=== PATIENT | male | born 1940 | race American Indian/Alaskan Native ===

== ENCOUNTER 2024-11-24 06:03 | Inpatient (IN) | payer OTHER, SELFPAY ==
[2024-11-24] VITALS (25 sets, daily range): BP systolic 98–176; BP diastolic 68–143; PULSE 85; O2SAT 92; BMI 27.0
[2024-11-24 04:04] LABS: % Basophils 0.3 % (0-2); % Eosinophils 1.3 % (0-6); % Immature Granulocytes 0.3 % (0-0.5); % Monocytes 7.7 % (1.7-9.3); % Neutrophils 68.4 % (42.2-75.2); Absolute Lymphocytes 0.7 10^3/uL (1.2-3.4); Absolute Monocytes 0.2 10^3/uL (0.1-0.6); Absolute Neutrophils 2.1 10^3/uL (1.4-6.5); Hematocrit 30.5 % (39.0-52.0); Hemoglobin 8.9 g/dL (13.0-18.0); Mean Corp Hgb Conc. 29.2 g/dL (33.0-37.0); Mean Corpuscular Hgb 25.5 pg (27.0-31.0); Mean Corpuscular Volume 87.4 fL (80.0-94.0); Mean Platelet Volume 9.7 fL (7.4-10.4); Nucleated Red Blood Cells % 0 % (-); Platelet Count 171 10^3/uL (130-400); Red Blood Cell Count 3.49 10^6/uL (4.70-6.10); Red Cell Dist. Width 19.7 % (11.5-14.5); White Blood Cell Count 3.1 10^3/uL (4.8-10.8)
[2024-11-24 04:15] LABS: COVID-19 Antigen Positive (Negative)
[2024-11-24 04:17] LABS: ALT (SGPT) 42 U/L (0-50); AST (SGOT) 29 U/L (17-59); Albumin 3.3 g/dl (3.5-5.0); Alkaline Phosphatase 293 U/L (38-126); Blood Urea Nitrogen 24 mg/dl (9-20); Calcium 8.1 mg/dl (8.4-10.2); Carbon Dioxide 22 mmol/L (22-30); Chloride 108 mmol/L (98-107); Estimated Creatinine Clearance 42 ml/min; Glucose 148 mg/dl (70-99); Potassium 3.9 mmol/L (3.5-5.1); Sodium 142 mmol/L (135-145); Total Bilirubin 0.6 mg/dl (0.2-1.3); Total Protein 6.2 g/dl (6.3-8.2); eGFR 54.51
[2024-11-24 04:29] LABS: NT-proBNP 7590 pg/ml; Troponin I < 0.012 ng/ml
[2024-11-24] MEDS: NSS 1000 IV (04:30)
--- NOTE | 2024-11-24 04:30 | ED.GENMED ---
History of Present Illness
General
Chief Complaint: Breathing Problem
Source: patient, family and ambulance crew
Exam Limitations: none
Time Seen by Provider: 11/24/24 04:18
Nursing documentation reviewed up to this point in time: agreed with
History of Present Illness
History of Present Illness:
This is an 84-year-old gentleman who has remote history of prostate cancer, more recently diagnosed with bladder cancer and completed chemotherapy as well as XRT September of this year. Was recently hospitalized at [facility] due to frequent falls,
acute influenza, acute on chronic kidney disease, acute on chronic anemia requiring blood transfusion. Was discharged to a correction for physical therapy with plan for discharge to home tomorrow. He began with very mild cough on Thursday, 3 days
ago, cough is worsened and developed shortness of breath and hypoxia this evening prompting call to 911. Upon EMS arrival patient noted to be in A-fib with rapid ventricular response. Was given an IV bolus of Cardizem 15 mg prehospital.
Upon arrival to the ED, family has arrived with further history obtained. Patient has chronic atrial fibrillation.
No recent falls, has been doing well with PT.
Generally does not require supplemental oxygen.
Past History
Past History
ED Past Medical History: Arrthythmia (Chronic atrial fibrillation), CAD, Cancer (Prostate cancer, bladder cancer), CVA (History of a TIA), GERD, Hypercholesterolemia, Renal failure ( chronic renal insufficiency) and Other (Influenza October 2024);
Negative Asthma or COPD
ED Past Surgical History: Urological
Social History
Tobacco: Non-smoker
Alcohol: None
Living: correction (Currently residing in a correction for inpatient physical therapy)
Employment: Retired
Family History
Family History: Other (Noncontributory)
Phy Exam
Physical Exam
Physical Exam:
GENERAL: 84-year-old gentleman appears his stated age, awake and alert, exhibits frequent harsh nonproductive cough, mild tachypnea but otherwise bright and alert, in no acute distress. Room air pulse ox in the 80s, currently comfortable on 6 L
nasal cannula oxygen
EYE: pupils equal and reactive. anicteric
NECK: Supple, nontender, no meningismus, no significant adenopathy.
ENT: posterior pharynx is clear, oral mucosa is minimally dry. Mild clear rhinorrhea.
CARDIAC: Irregularly irregular, tachycardic.
LUNGS: Frequent hacking nonproductive cough, fine bibasilar rales, mild resting tachypnea.
ABDOMEN: Soft, nondistended, without focal tenderness, normoactive BS.
NEUROLOGICAL: Alert and oriented x3, no focal neuro deficits.
SKIN: Mildly hot to touch and dry, normal color, skin intact. No rash.
MUSCULOSKELETAL: No C/C/E. peripheral pulses are full and equal b/l. No palpable tenderness.
PSYCH: Normal and appropriate interaction.
Scores
Heart Failure Risk
Heart Failure Risk Score: Not Applicable
Course
Orders/Labs/Results
Orders:
Orders
11/24/24 03:39
Electrocardiogram (*1) Urgent
Reason for Study: Other
Other Reason for Exam: Respiratory Distress
Cardiac Monitoring- Treatment ONCE
EKG- Treatment ONCE
IV Insert/Care/Rem.- Treatment PRN
11/24/24 03:54
COVID-19 Antigen Urgent
Source: Nasal Swab
Complete Blood Count/With Diff Urgent
Comprehensive Metabolic Panel Urgent
NT-proBNP Urgent
Troponin I Urgent
Influenza A+B Rapid Molecular Urgent
NINO Source: Nasal Swab
Specimen Description:
11/24/24 04:26
0.9% Sodium Chloride 1000 ml [Nss] 1,000 ml IV BOLUS
CR Chest Portable - 1 View Urgent
Comment:
Reason For Exam: cough, covid (+)
Reason Study Needs to be Portable: Unable to Transport
11/24/24 04:40
Ipratropium/Albuterol Sulfate [Duoneb] 3 ml INH R NOW STA
11/24/24 05:03
Type+Screen Urgent
11/24/24 05:30
Admit/Transfer Patient As Directed
Co-Sign Provider:
Level of Care: Inpatient admission
Assign to:: IMU- Intermediate Care
Physician / Group: hospitalist
Diagnosis: afib RVR, covid 19
Reason for Hospitalization: hypoxia
Expected length of stay greater than two midnights?: Yes
ELOS- Estimated Length of Stay in days: 2
I certify the patient meets the requirements for IP care: Yes
11/24/24 05:31
Code Status As Directed
Resuscitation Status: Do not resuscitate
Reached after discussion with pt or family/Healthcare POA: Yes
PRN Pain Medication Management As Directed
May give lesser potent ordered pain med per pt: Yes
preference::
Protocol:: Medication orders for pain may be administered in a
manner that supports deferring to patient preference
when the pt is:
- Requesting an ordered lesser potent pain medication.
Least to most potent pain medications are defined
as: acetaminophen < NSAID < tramadol < opioids
(morphine, oxycodone, hydromorphone).
- Requesting a lesser dose of the same medication IF
ORDERED.
- Requesting a less intrusive route of administration
if both routes are prescribed by the provider (PO <
IV).
11/24/24 05:32
DNR Bracelet Application ONCE
11/24/24 05:42
Dexamethasone Sod Phosphate [Decadron] 6 mg IV NOW STA
Metoprolol [Lopressor] 5 mg IV NOW STA
11/24/24 05:47
ABO2 Urgent
BBK Wristband Number:
Associate notified that ABO2 has been ordered: SULY
Date: 11/24/24
Time: 05:20
Gang Leader ID: [id number]
11/24/24 Breakfast
Sodium, 4 Gram (JACKY)
11/24/24 06:32
Acetaminophen [Tylenol] 650 mg PO Q4HPRN PRN
Albuterol [ProAIR HFA INHALER] 2 puff INH R Q4HPRN PRN
Bisacodyl [Dulcolax] 10 mg RECTAL [id number] PRN
Diltiazem 125 mg/125 ml Nss [Cardizem] 125 mg in 125 ml IV PER PROTOCOL
Currently infusing. Continue current dose and titrate:: Yes
Titrate to keep:: Heart rate 80-100 bpm
Titrate by mg/hr:: 5 mg/hr
Frequency of titrations (minutes):: 15
Maximum dose in mg/hr:: 15
Docusate W/Senna [Senokot-S] 1 tablet PO DAILYPRN PRN
Guaifenesin/Codeine Solution [Robitussin AC] 10 ml PO Q6HPRN PRN
Magnesium Hydroxide [Milk of Magnesia] 30 ml PO HSPRN PRN
Ondansetron Injectable [Zofran] 4 mg IV Q6HPRN PRN
Remdesivir [Veklury] 200 mg 0.9% Sodium Chloride 250 ml [Nss] 210 ml IV ONCE
Patient has been symptomatic for </= 10 days?: Yes
Patient's SpO2 </= 94% on room air OR requiring oxygen?: Yes
11/24/24 06:32
CARDIOLOGY CONSULT Routine
Consulting Provider: Devon Asencio
Was physician already notified: No
Reason for consult: afib rvr
Consult Notification Routine
Specialty to Notify: Cardiology
Date consulting provider notified: 11/24/24
Time consulting provider notified: 07:08
Notified:: Provider
VTE Contraindication Routine
VTE Mechanical Device Contraindication: Medical Contraindication
Pharmocologic Contraindication: Medical Contraindication
Activity As Directed
Activity Level: Out of Bed-Early Mobility
Intake/ Output As Directed
Frequency: Per unit guidelines
Medical Records Request [Obtain Records] As Directed
Dates of Information to be Released: Sep 21 2024 - november 23 2024
Type of Information Requested: Entire Record
Precautions As Directed
Type of Precautions: Novel Respiratory
Vital Signs As Directed
Frequency: Per unit guidelines
Weight As Directed
Frequency: Once
Comment: on admission
O2 Therapy [RESP] Routine
Nasal Cannula Liter Flow: 4 LPM
Titrate/Wean O2 to maintain O2 sat greater than (%): 93
Special Instructions: nasal cannula oxygen to maintain O2 saturation as noted above. then wean as tolerated.
Do NOT humidify nasal cannula O2
Pulse Ox/cont/shift [RESP] Routine
Quantity: 1
Special Instructions: continuous pulse oximetry
11/24/24 08:00
Dexamethasone Sod Phosphate [Decadron] 6 mg IV DAILY
Diltiazem Extended Release [Cardizem Cd] 240 mg PO DAILY
Metoprolol [Lopressor] 150 mg PO BID
Pantoprazole [Protonix] 40 mg PO BID
Tamsulosin [Flomax] 0.4 mg PO DAILY
11/24/24 18:00
Atorvastatin [Lipitor] 40 mg PO QPM
11/25/24 06:00
Basic Metabolic Panel IN AM
Uoiyv-Witm-Hywbvrx IN AM
Magnesium IN AM
Procalcitonin IN AM
PCT Algorithmm Indication: Respiratory
Prothrombin Time IN AM
11/25/24 12:00
Remdesivir [Veklury] 100 mg 0.9% Sodium Chloride 250 ml [Nss] 230 ml IV DAILY@1200
Abnormal Lab Results
11/24/24
03:54
WBC 3.1 L 10^3/uL
(4.8-10.8)
RBC 3.49 L 10^6/uL
(4.70-6.10)
Hgb 8.9 L g/dL
(13.0-18.0)
Hct 30.5 L %
(39.0-52.0)
MCH 25.5 L pg
(27.0-31.0)
MCHC 29.2 L g/dL
(33.0-37.0)
RDW 19.7 H %
(11.5-14.5)
Absolute Lymphs (auto) 0.7 L 10^3/uL
(1.2-3.4)
Chloride 108 H mmol/L
(98-107)
BUN 24 H mg/dl
(9-20)
Glucose 148 H mg/dl
(70-99)
Calcium 8.1 L mg/dl
(8.4-10.2)
Alkaline Phosphatase 293 H U/L
(38-126)
Total Protein 6.2 L g/dl
(6.3-8.2)
Albumin 3.3 L g/dl
(3.5-5.0)
SARS-CoV-2 Antigen Positive A
(Negative)
11/24/24 03:54
11/24/24 03:54
Vital Signs
Initial and Last Documented VS:
Initial Vital Signs
Temp Pulse Resp BP Pulse Ox
98.5 F 140 25 137/80 92
11/24/24 03:34 11/24/24 03:34 11/24/24 03:34 11/24/24 03:34 11/24/24 03:34
Last Documented Vital Signs
Temp Pulse Resp BP Pulse Ox
98.3 F 135 20 145/90 98
11/24/24 06:36 11/24/24 05:56 11/24/24 05:45 11/24/24 05:56 11/24/24 06:36
MDM/Problems Addressed
Differential Diagnosis Includes:
Concern for acute URI, pneumonia, COVID, CHF, concern for acute on chronic A-fib versus paroxysmal A-fib. According to family, patient has chronic atrial fibrillation.
Labs are pending.
COVID-19 is positive.
Will check portable chest x-ray.
Continue supplemental oxygen.
Will trial DuoNeb nebulizer.
With history of cancer, recent completion of XRT and chemotherapy, patient is considered immunocompromised.
Due to acute hypoxic respiratory failure requiring supplemental oxygen will require acute hospitalization.
Will plan to initiate Paxlovid
Chronic conditions affecting care: CAD, Arrhythmia, Immunosuppressed and Kidney disease
*Radiology
Radiology exam reviewed: preliminary read by ED provider (Chest x-ray shows right lower lobe infiltrate with right pleural effusion. No old films to compare.)
*Pulse Oximetry
Patient hypoxic: yes
*EKG
Interpreted by ED Provider?: Yes
Interpretation: abnormal
Comparison EKG: no comparison EKG present
Rate: tachycardiac
Rhythm: a-fib
[place]: normal axis
QRS Pattern: right bundle branch block
Ischemia: non-specific ST changes
*Gas Derrick Operator Interpretation
Rate: tachycardiac
Interpretation: abnormal
Rhythm: a-fib
*Critical Care Note
Total Time (30-74mins, 75-104mins- exclusive of procedures): Not Applicable
ED Attending Note
-
Portions of this chart may have been created with voice recognition software.� Occasional wrong word or��sound alike� substitutions may have occurred due to the inherent limitations of voice recognition software.
Discharge Plan
Departure
Patient Disposition: Admit
Date of Disposition: 11/24/24
Time of Disposition: 04:51
Admit to: Telemetry
Admit to doctor: Asim
Presentation/result/management discussed w/ accepting MD/DO: Hospitalist
Condition: Fair
Discharge Problem:
COVID-19, Acute hypoxemic respiratory failure, Chronic atrial fibrillation with rapid ventricular response, HCAP (healthcare-associated pneumonia)
Interventions
Interventions:
*Risk Screen - Suicide Last Done: 11/24/24 03:34
*General Assessment Last Done: 11/24/24 03:34
*Neglect/Abuse Screening Last Done: 11/24/24 03:34
*ED- Fall Risk Assessment Last Done: 11/24/24 03:57
*ED COVID-19 Vaccine History Last Done: 11/24/24 03:57
*Nursing Disposition Last Done: 11/24/24 06:42
ED- Cardiac Assessment Last Done: 11/24/24 04:02
ED- Pulmonary Assessment Last Done: 11/24/24 04:03
Discharge Date and Time
Discharge Date/Time: 11/24/24 06:43
[2024-11-24] MEDS: DUONEB 3 ML INH (04:58)
--- NOTE | 2024-11-24 05:15 | HPS.HSE ---
Family Physician
-
Family Physician: NOT KNOW UNKNOWN - PT DOES
Chief Complaint
-
Shortness of breath
History of Present Illness
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
bladder cancer status post chemotherapy as well as XRT and general of dysuria who was recently hospitalized at [facility] for approximately 3 weeks subsequent to a fall where he was found to have acute influenza with acute on chronic CKD, anemia
requiring blood transfusion and uncontrolled atrial fibrillation who now presents to the emergency department with shortness of breath.
Patient was discharged to rehab from [facility]. According to patient and family was well up until Thursday when he started having cough that is unproductive. Cough is worsened over the last few days and he developed shortness of breath and
hypoxia. Patient reports chronic pedal edema which is not significantly changed. He denies orthopnea or PND. Denied having any fevers or chills. Was found to be hypoxic and thus was brought to the emergency department. EMS found the patient to
be in atrial fibrillation with RVR and was giving 50 mg bolus of Cardizem prior to arrival in the ED
On arrival in the emergency department his oxygen level was 97% on 4 L, blood pressure was 157/80 with a pulse of 133. ECG shows a atrial fibrillation with RVR without any acute ST or T wave changes. Troponin was negative. BNP was elevated at
7500. CBC notable for hemoglobin of 8.9 but otherwise unremarkable. Electrolytes were stable with a sodium of 149 only. His creatinine was 1.3 unknown baseline. Glucose was normal at 148. Chest x-ray shows right-sided pleural effusion with some
rounded atelectasis. No clear evidence of any consolidation. COVID test was positive. Influenza test was negative.
Medical History
Past Medical History
Past Medical History: Reports Arrhythmia (Permanent atrial fibrillation on anticoagulation with Eliquis), CAD, Cancer (Prostate cancer, bladder cancer), CVA (TIA), GERD, Hypercholesterolemia and Renal Failure (CKD)
Past Surgical History: Reports Urological
Social History
Tobacco: Non-smoker
Alcohol: None
Personal: Single
Living: Group Home (Recently from rehab was living at home)
Employment: Retired
Family History
Family History: Not pertinent
Allergies / Home Medications
Allergies reflects when Allergies were last updated in [facility].
Home Medications with original date entered in [facility]
Allergy/Medication List:
Allergies
Allergy/AdvReac Type Severity Reaction Status Date / Time
No Known Allergies Allergy Unverified 11/24/24 04:25
Metoprolol 150 mg tablet, 150 mg p.o. every 12
Tamsulosin 0.4 mg tablet, 0.4 mg p.o daily.
Atorvastatin 40 mg tablet, 40 mg p.o. at bedtime
Apixaban 5 mg tablet, 5 mg p.o. every 12
Cardizem extended release 24-hour to 40 mg tablet, 240 mg p.o. daily
Pantoprazole 40 mg tablet, 40 mg p.o. every 12
Review of Systems
-
History Source: Patient and Family
Constitutional: Reports No Symptoms
EENT: Reports No Symptoms
Respiratory: Reports Cough and Trouble Breathing
Cardiac: Denies Chest Pain, Diaphoresis or Palpitations
Abdomen/GI: Reports No Symptoms
: Reports No Symptoms
Musculoskeletal: Reports No Symptoms
Skin: Reports No Symptoms
Neurological: Reports No Symptoms
Endocrine: Reports No Symptoms
Hematologic/Lymphatic: Reports No Symptoms
Psych: Reports No Symptoms
Physical Exam
Vital Signs
Vital Signs
Temp Pulse Resp BP Pulse Ox
98.7 F 133 19 137/80 97
11/24/24 04:01 11/24/24 03:45 11/24/24 03:45 11/24/24 03:38 11/24/24 04:03
Physical Exam
General: Well Developed, Well Nourished, No Apparent Distress and Comfortable
HEENT: NormoCephalic, Anicteric, Moist mucous membranes and Atraumatic
Respiratory: Rales and Rhonchi
Cardiac: S1/S2, Irregular Rhythm and Tachycardia
Breast: Deferred by me
GI: Soft, Non Tender, Non Distended and Normal Bowel Sounds
Rectal: Deferred by Provider
Genito-urinary: Deferred by me
Musculoskeletal: No Clubbing, No Cyanosis, Edema, Left Lower Extremity (1+ pedal) and Edema, Right Lower Extremity (1+ pedal)
Skin: Warm
Neuro: AO x 3 and Nonfocal/grossly intact
Hematologic/Lymphatic: No Lymphadenopathy
Psych: Calm
Laboratory Results
-
11/24/24 03:54
11/24/24 03:54
Laboratory Results
Total Bilirubin 0.6 mg/dl (0.2-1.3) 11/24/24 03:54
AST 29 U/L (17-59) 11/24/24 03:54
ALT 42 U/L (0-50) 11/24/24 03:54
Alkaline Phosphatase 293 U/L (38-126) H 11/24/24 03:54
Troponin I < 0.012 ng/ml 11/24/24 03:54
Data Reviewed
-
Diagnostic Radiology: Image Personally Visualized and interpreted
Medical Tests (Nuc Med, Echo, EKG etc): Image Personally Visualized and interpreted
Lab Data: Labs Reviewed by me
Old Records: Reviewed
Impression/Plan
-
IMPRESSION:
84-year-old with history of bladder cancer status post chemo and XRT, chronic atrial fibrillation, recent admission for influenza complicated by uncontrolled atrial fibrillation, ROMA on CKD, recent history of anemia requiring blood transfusion but
no known report of bleeding, presenting with hypoxic respiratory failure after 3 days of cough and found to have COVID-19. Influenza is negative. Had influenza in September and was hospitalized at [facility] for 3 weeks stated above. He is
hemodynamically stable and afebrile. He is in rapid atrial fibrillation. Exam shows pedal edema with elevated BNP and negative troponin. Chest x-ray with the right-sided pleural effusion and rounded atelectasis on the right.
PLAN:
COVID-19 infection - No signs of bacterial superinfection at this time.
- admit to IMU
- Remdesivir
- dexamethasone 6mg iv daily
- supportive measures with antitussives and nebs
- supplemental oxgyen for now
- check procal
Rapid atrial fibrillation - Suspect secondary to acute viral infection. HD stable.
- oxygen and treatments as above
- s/p dilt bolus by EMS, will give metoprolol based on patient meds, if not controlled, will start cardizem for rate control
- continue high dose metoprolol 150 q 12
- AC with apixaban
- cardiology consult
Congestive heart failure - Slightly volume overloaded with pedal edema
- daily weights and i/os
- unclear if diuresis at [place]
- monitor for now
- cardiology consult
Anemia - Normocytic anemia. Suspect ACD. No signs of acute bleed. Recent transfusion
- type and screen
- transfuse for Hgb < 7
BPH -
- cont. tamsulosin
DVT PPX - on apixaban
Code status - DNR
[2024-11-24] MEDS: DECADRON 6 MG IV ×2 (05:56→08:17)
[2024-11-24] MEDS: LOPRESSOR 5 MG IV (05:56)
[2024-11-24] MEDS: LASIX 40 MG IV (08:16)
[2024-11-24] MEDS: ROCEPHIN 1000 MG IV (08:17)
[2024-11-24] MEDS: VITAMIN E 200 UNITS PO (08:18)
[2024-11-24] MEDS: CARDIZEM CD 240 MG PO (08:18)
[2024-11-24] MEDS: FLOMAX 0.4 MG PO (08:18)
[2024-11-24] MEDS: PROTONIX 40 MG PO ×2 (08:18→20:39)
[2024-11-24] MEDS: ZINC 50 MG PO (08:18)
[2024-11-24] MEDS: LOPRESSOR 150 MG PO ×2 (08:18→20:35)
[2024-11-24] MEDS: STERILE WATER FOR INJECTION 10 ML IV (08:18)
[2024-11-24] MEDS: VEKLURY 250 MG IV (08:19)
[2024-11-24] MEDS: CARDIZEM 125 IV (08:20)
[2024-11-24] MEDS: VIBRAMYCIN 260 MG IV (08:21)
--- NOTE | 2024-11-24 08:57 | CON.CAR ---
Addendum entered and electronically signed by Rolando Chandra MD 11/24/24 11:10:
Patient evaluated in collaboration with BUSINESS ADVISOR; agree with below.
-84-year-old male (primarily followed by an outside Training Program Assistant) with atrial fibrillation (type unspecified; on Eliquis), CAD (specifics unknown), CHF (type unspecified), hypertension, dyslipidemia, CKD, and anemia admitted with COVID-19 pneumonia.
-Patient also has atrial fibrillation with RVR to 150s; started on a Cardizem drip with minimal improvement in heart rates.
-Given acuity of situation, will change from Cardizem drip to amiodarone drip to try to more aggressively control heart rate.
-Patient not on Lasix as outpatient; cardiac BNP 7590.
-Continue Lasix 40 mg IV daily.
-Continue current oral doses of metoprolol tartrate and Cardizem CD.
-Continue Eliquis.
-Continue cardiac monitor technician.
-Try to obtain medical records from [place] and primary Training Program Assistant.
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
-Continue supportive care; management as per primary team.
Original Note:
Consultation
Consultation Request
Date/Time Consultation Requested: 11/24/24 0632
Date/Time Consultation Performed: 11/24/24 0855
Requesting Provider: Dr. Dailey
Performing Provider: Althea GALVAN for Dr. Chandra
Reason for Consultation: AFIB with RVR
Medical History
-
Chief Complaint: cough, SOB, hypoxia
History of Present Illness:
84 y/o male with atrial fibrillation, hypertension, dyslipidemia, CHF, CVA, CKD, prostate cancer, CHF and CAD per chart?, and bladder cancer with chemo and radiation. Per chart, he was recently hospitalized at [place] with flu and ROMA on CKD,
anemia requiring transfusion, and AFIB with RVR. He is here with cough, hypoxia, and SOB. He has COVID-19. I tried to use the experimental machinist IPAD for effective communication ([place] Citizen-speaking). However, he was coughing too much to effectively
communicate. He told me his would know more about his cardiac history- I called her and she reports that he follows with a Dr. Laboy who he saw last week - records requested- and that he has known afib and trouble with fast rates.
Past Medical History
Past Medical History: Arrhythmias, CAD (?), Cancer, CHF, CVA, HTN, Hypercholesterolemia and Other (as above)
Social History
Personal:
Living: With Family
Family History
Family History: Reviewed & Not Pertinent
Allergies / Home Medications
Allergy/AdvReac Type Severity Reaction Status Date / Time
No Known Allergies Allergy Unverified 11/24/24 04:25
�Medication �Instructions �Recorded �Confirmed �Type
apixaban 5 mg tablet (Eliquis) 5 mg PO BID 11/24/24 History
atorvastatin 40 mg tablet 40 mg PO DAILY 11/24/24 History
diltiazem HCl 240 mg 240 mg PO DAILY 11/24/24 History
capsule,extended release 24 hr
fluticasone propionate 50 2 spray intranasal DAILY 11/24/24 History
mcg/actuation nasal
spray,suspension
ipratropium 0.5 mg-albuterol 3 mg ml inhalation 11/24/24 11/24/24 History
(2.5 mg base)/3 mL nebulization
soln
metoprolol tartrate 50 mg tablet 150 mg PO BID 11/24/24 History
pantoprazole 40 mg tablet,delayed 40 mg PO BID 11/24/24 History
release
tamsulosin 0.4 mg capsule 0.4 mg PO DAILY 11/24/24 11/24/24 History
Review of Systems
-
History Source: Patient and Other (and chart)
Respiratory: Cough and Trouble Breathing
Physical Exam
Vital Signs
Temp Pulse Resp BP Pulse Ox
97.6 F 134 20 137/103 98
11/24/24 07:54 11/24/24 08:18 11/24/24 05:45 11/24/24 08:18 11/24/24 06:36
Lab Results
11/24/24 03:54
11/24/24 03:54
Troponin I < 0.012 ng/ml 11/24/24 03:54
Aun-Z-Pencwazidnn Pept 7590 pg/ml 11/24/24 03:54
Physical Exam
General: Well Developed, Well Nourished and Other (frequent coughing)
Respiratory: Rhonchi and Other (on O2 by NC)
Cardiac: Irregular Rhythm and Peripheral Edema
Musculoskeletal: Edema (mild BLE edema)
Skin: Warm and Dry
Neuro: Awake and Alert
Psych: Calm
Impression / Plan
-
Covid-19:
-cough, hypoxia, evidence for possible PNA on CXR. On O2 by OR.
-management per primary team
AFIB with RVR:
-rates fast, which apparently has been issue per . This is in setting of acute illness.
-he is on diltiazem 240 mg daily as OP, as well as metoprolol 150 mg PO BID
-agree with IV diltiazem, which requires intensive monitoring
-continue Eliquis 5 mg PO BID (not ordered yet- I ordered)
-no echo right now with fast rates and frequent coughing, as noted records requested
CHF, [id number]- type unknown:
-per chart, patient with hx of this, though not on OP diuretic
-records requested
-he has BLE edema, which per chart is chronic
-BNP 7590
-monitor response to IV lasix, which is ordered by primary team
-echo as above
Anemia:
-baseline unknown
-monitor
CAD per chart:
-details unknown
-no CP, trop fine
-on Eliquis/statin
HTN:
-elevated
-monitor on dilt drip, which is being increased
Data Reviewed
-
EKG: Tracing Personally Visualized and interpreted (AFIB with RVR RBBB, with PVC's or aberrant complexes)
Radiology: Report Reviewed by me (CXR: Right basilar opacity which could represent atelectasis and/or pneumonia and tiny right pleural effusion.)
Labs: Labs Reviewed by me
[2024-11-24 09:13] LABS: Erythrocyte Sed Rate 25 mm/hour (0-20)
[2024-11-24 09:20] LABS: Procalcitonin < 0.05 ng/ml (0.0-0.25)
--- NOTE | 2024-11-24 09:24 | W.PN.HOSP.TC ---
Today's Communication/Plan
-
see PN
Assessment / Plan
Assessment / Plan
84yo M with PMHC of Afib, HTN, HLD, BPH, GERD, CAD, Hx of CVA, prostate CA undergoing RT came with cough, hypoxia from rehab, found COVID-19 pneumonia complicated by Afib with RVR
A/P:
#COVID-19 pneumonia with acute hypoxic respiratory failure
#Leukopenia 2/2 viral disease
#R basilar opacity, concern for pneumonia
ESR elevated, follow ferritin and procalcitonin
Remdesivir and follow LFT
Decadron and wean off O2
Zinc and vit E supplements
Ceftriaxone/Doxy
#Afib, unspecified with RVR
#CAD stable
Cardizem drip and cont home rate control
telemetry
Eliquis to cont
#B/L LE edema
US to r/o DVT
#CHF, unspecified
Lasix, follow weight, Cr and electrolytes
Cardiology consult: defer Echo to them as discussed
#Anemia most liekly 2/2 prostate CA
anemia w/u
check FOBT
follow CBC
#Elevated alk.phos 2/2 prostate CA
no RUQ pain
follow LFT
#Essential HTN
#CAD, stable
#GERD
#HLD
cont home meds
DVt ppx Eliquis
DNR/DNI
I have spent at least 56min reviewing chart, test results, communicating with consultants and providing direct patient care
Anticipated Discharge: > 48 hours
Subjective/Interval History
-
Date of Service: November 24, 2024
Objective Data
-
Labs:
Laboratory Results
11/24/24
03:54
WBC 3.1 L
Hgb 8.9 L
Hct 30.5 L
Plt Count 171
Sodium 142
Potassium 3.9
Chloride 108 H
Carbon Dioxide 22
BUN 24 H
Creatinine 1.3
Glucose 148 H
Calcium 8.1 L
Total Bilirubin 0.6
AST 29
ALT 42
Alkaline Phosphatase 293 H
Vital Signs:
Vital Signs
Temp Pulse Resp BP Pulse Ox
97.6 F 134 20 137/103 98
11/24/24 07:54 11/24/24 08:18 11/24/24 05:45 11/24/24 08:18 11/24/24 06:36
I&O
11/23/24 11/24/24 11/25/24
06:59 06:59 06:59
Intake Total 1000 / 1000
Output Total 100 / 100
Balance 900 / 900
Review of Systems
-
History Source: Patient
All other systems: Reviewed and negative
Physical Exam
-
General: No Apparent Distress and Comfortable
HEENT: Normocephalic
Respiratory: Clear to Auscultation
Cardiac: Regular Rhythm
GI: Soft, Nontender and Nondistended
Musculoskeletal: No Clubbing, No Cyanosis, Edema, Right Lower Extrem and Edema, Left Lower Extrem
Skin: Warm
Neuro: Awake, Alert, Oriented and AO x 3
[2024-11-24 09:40] LABS: Ferritin 89.9 ng/ml (17.9-464.0)
[2024-11-24] MEDS: ELIQUIS 5 MG PO ×2 (09:43→20:40)
[2024-11-24] MEDS: ROBITUSSIN AC 10 ML PO ×2 (09:43→17:56)
--- NOTE | 2024-11-24 10:00 | PTCARENOTE ---
Assumed care of patient at 0645. Assessment completed and documented in shift assessment.
Patient is AAOx2-3, Tongan speaking with broken danish. MALU, assists with turns. Currently on 4L NC, SpO2 mid 90's. A-Fib with RVR on monitor. Started IV Cardizem drip per order. Labs drawn, PO medications given.
[2024-11-24] MEDS: CORDARONE 103 MG IV (11:36)
[2024-11-24] MEDS: CORDARONE 518 MG IV (11:58)
--- NOTE | 2024-11-24 12:00 | PTCARENOTE ---
IV Cardizem drip d/c per order. Administered Amio bolus and then started Amio gtt per order.
[2024-11-24] MEDS: LIDOCAINE 4% PATCH 1 PATCH TOPICAL (13:37)
--- NOTE | 2024-11-24 14:26 | CM ---
Addendum entered by Anais Gongora RN 11/24/24 14:47:
Plan watch for any home O2 needs.
Plan follow up after seen by PT/OT.
Original Note:
Vietnamese/Mohawk speaking patient from [facility] with Dx COVID-19 pneumonia, Afib. O2 4L. Receiving Amiodarone gtt, IV Abx, IV Decadron, IV Lasix, IV Remdesivir, transitioned from IV to oral Cardizem today.
Spoke with Tayla Lovett & TRAC[facility]val[facility];
the patient was there for short term rehab and was not on a bed hold.
He was A/O, Vietnamese/Mohawk speaking.
Th patient required assist of 1, was ambulatory with a RW.
He was just completing rehab with plan for him to return home, when he needed to be sent to .
Spoke with patient's Shanti;
the patient resides with his in a 1 story house with options of 3 VIC or no steps at back door.
He was alert/oriented at home, independent in ADLs and ambulation using his SPC ( says she is aware he is now using his RW).
Home Address: [address] [place] [id number].
DME - RW, SPC, just ordered hospital bed
No prior VN.
Only SNF stay was at [facility].
PCP - Mikel Camejo
Pharmacy - [facility]
Message to Dr Jaeger requesting PT/OT Sanna to confirm if any rehab needs.
thinks patient will not need to return to SNF for rehab and will be able to return home.
Plan follow up after seen by PT/OT.
[2024-11-24] MEDS: LIPITOR 40 MG PO (17:56)
[2024-11-24] MEDS: VIBRAMYCIN 100 MG PO (20:40)
[2024-11-24] MEDS: TYLENOL 650 MG PO (20:46)
--- NOTE | 2024-11-24 21:00 | PTCARENOTE ---
Pt received from previous RN. Pt on amio gtt @ 0.5 mg/min. HR maintained @ 95 bpm. 0n 4L 02. pt frequently removes 02 from nose and needs reminding to wear it. Assessment as documented. Call light in reach.
[2024-11-25] VITALS (16 sets, daily range): BP systolic 89–126; BP diastolic 65–88; PULSE 88; O2SAT 93; BMI 27.5
[2024-11-25] MEDS: ROBITUSSIN AC 10 ML PO ×2 (00:01→17:02)
[2024-11-25 05:18] LABS: % Immature Granulocytes 0.6 % (0-0.5); % Lymphocytes 9.5 % (20.5-51.1); % Monocytes 4.8 % (1.7-9.3); % Neutrophils 85.1 % (42.2-75.2); Absolute Lymphocytes 0.5 10^3/uL (1.2-3.4); Absolute Monocytes 0.3 10^3/uL (0.1-0.6); Absolute Neutrophils 4.6 10^3/uL (1.4-6.5); Hematocrit 31.4 % (39.0-52.0); Hemoglobin 9.1 g/dL (13.0-18.0); Mean Corpuscular Volume 86.3 fL (80.0-94.0); Mean Platelet Volume 10.3 fL (7.4-10.4); Nucleated Red Blood Cells % 0 % (-); Platelet Count 217 10^3/uL (130-400); Red Blood Cell Count 3.64 10^6/uL (4.70-6.10); Red Cell Dist. Width 19.4 % (11.5-14.5); White Blood Cell Count 5.4 10^3/uL (4.8-10.8)
[2024-11-25 05:32] LABS: INR 1.72; PT 20.7 Sec (11.4-14.6)
[2024-11-25 05:36] LABS: ALT (SGPT) 30 U/L (0-50); AST (SGOT) 17 U/L (17-59); Albumin 3.3 g/dl (3.5-5.0); Alkaline Phosphatase 227 U/L (38-126); Blood Urea Nitrogen 31 mg/dl (9-20); Calcium 8.3 mg/dl (8.4-10.2); Carbon Dioxide 20 mmol/L (22-30); Chloride 106 mmol/L (98-107); Direct Bilirubin 0.3 mg/dl (0.0-0.4); Estimated Creatinine Clearance 34 ml/min; Glucose 192 mg/dl (70-99); Iron 39 ug/dl (49-181); Magnesium 1.5 mg/dl (1.6-2.3); Potassium 4.7 mmol/L (3.5-5.1); Sodium 139 mmol/L (135-145); Total Bilirubin 0.6 mg/dl (0.2-1.3); Total Protein 6.1 g/dl (6.3-8.2); eGFR 42.49
[2024-11-25 05:46] LABS: Percent Saturation 15 % (20-50); Total Iron Binding Capacity 253 ug/dl (261-462)
[2024-11-25 05:57] LABS: Procalcitonin < 0.05 ng/ml (0.0-0.25)
--- NOTE | 2024-11-25 06:29 | PTCARENOTE ---
Pts urine assessed to be dark tea colored this am from a previous yellow color. COMMUNICATIONS BILLING ANALYST made aware. urine sample order received.
[2024-11-25] MEDS: MAGNESIUM SULFATE 100 IV (06:35)
[2024-11-25 06:41] LABS: Folate 4.6 ng/ml (2.76-20); Vitamin B12 798 pg/ml (239-931)
[2024-11-25] MEDS: PROTONIX 40 MG PO ×2 (07:21→20:42)
[2024-11-25] MEDS: FLOMAX 0.4 MG PO (07:21)
[2024-11-25] MEDS: VITAMIN E 200 UNITS PO (07:21)
[2024-11-25] MEDS: ELIQUIS 5 MG PO (07:21)
[2024-11-25] MEDS: ZINC 50 MG PO (07:21)
[2024-11-25] MEDS: CARDIZEM CD 240 MG PO (07:21)
[2024-11-25] MEDS: VIBRAMYCIN 100 MG PO ×2 (07:21→20:42)
[2024-11-25] MEDS: DECADRON 6 MG IV (07:23)
[2024-11-25] MEDS: LIDOCAINE 4% PATCH 1 PATCH TOPICAL (07:23)
[2024-11-25] MEDS: LOPRESSOR 150 MG PO ×2 (07:23→20:43)
[2024-11-25] MEDS: ROCEPHIN 1000 MG IV (07:24)
[2024-11-25] MEDS: STERILE WATER FOR INJECTION 10 ML IV (07:24)
--- NOTE | 2024-11-25 11:18 | PN.CDI ---
Addendum entered and electronically signed by David Jaeger MD 11/30/24 10:35:
no sepsis
Original Note:
CDI
- -
CDI:
Physician Documentation Request
Admit Date: 11/24/24 06:03
Dear Doctor Mil,
Clinical Indicators:
Patient admitted with COVID-19 pneumonia with acute hypoxic respiratory failure & AF w/RVR.
3/6 PN, 'Leukopenia 2/2 viral disease'
WBC on admission:
11/24/24
03:54
WBC 3.1 L
HR/RR trend on admission:
11/24/24
03:34 11/24/24
04:00 11/24/24
04:30
Pulse 140 133 140
Resp Rate 25 25 24
11/24/24
06:30
Pulse 136
Resp Rate 23
Please clarify which of the following most accurately describes the status of the patient's infection:
Viral Sepsis, POA
- Systemic manifestations of infection, with 2 or more SIRS criteria which include:
- Fever >100.4 degrees F or hypothermia < 96.8 degrees F
- Leukocytosis - WBC > 12,000 or leukopenia - WBC < 4,000 or > 10% bands
- Tachycardia > 90 beats per minute
- Tachypnea - RR > 20 breaths per minute or PaCO2 , 32mmHg
Source: Merck Manual 2013
Severe Sepsis with associated acute hypoxic respiratory failure, POA
- Sepsis with associated acute organ dysfunction, such as renal or respiratory failure
- Documentation should indicate the association between the sepsis and the organ dysfunction
Covid 19 Pneumonia Only, Without Systemic Illness
Other, please specify
Use of terms such as suspected, likely, concern for, or probable (associated with a specific diagnosis that is being evaluated, monitored, or treated as if it exists) are acceptable and can be coded in the inpatient setting, when documented at the
time of discharge.
Thank you,
Darling Zurita RN BSN
CDI Specialist
available via tiger text
Please use your independent medical judgment in providing your response.
[2024-11-25] MEDS: VEKLURY 250 MG IV (11:39)
--- NOTE | 2024-11-25 11:44 | W.PN.HOSP.TC ---
Today's Communication/Plan
-
cont Abx and remdesivir
pending stool for occult blood
Hold lasix
Assessment / Plan
Assessment / Plan
84yo M with PMHC of Afib, HTN, HLD, BPH, GERD, CAD, Hx of CVA, prostate CA undergoing RT came with cough, hypoxia from rehab, found COVID-19 pneumonia complicated by Afib with RVR
A/P:
#COVID-19 pneumonia with acute hypoxic respiratory failure
#Leukopenia 2/2 viral disease
#R basilar opacity, concern for pneumonia
ESR elevated, follow ferritin and procalcitonin
Remdesivir and follow LFT
Decadron and wean off O2
Zinc and vit E supplements
Ceftriaxone/Doxy
#Afib, unspecified with RVR
#CAD stable
Cardizem drip and cont home rate control
telemetry
Eliquis to cont
#B/L LE edema
US to r/o DVT
#CHF, unspecified
Lasix, follow weight, Cr and electrolytes
Cardiology consult: defer Echo to them as discussed
#ROMA
hold lasix
#Anemia most likely 2/2 prostate CA (anemia of chronic disease) and MARIE
hold iron with acute infection
check FOBT
follow CBC
#Elevated alk.phos 2/2 prostate CA
no RUQ pain
follow LFT
#Essential HTN
#CAD, stable
#GERD
#HLD
cont home meds
DVt ppx Eliquis
DNR/DNI
I have spent at least 6min reviewing chart, test results, communicating with consultants, family and providing direct patient care
Anticipated Discharge: > 48 hours
Subjective/Interval History
-
Date of Service: November 25, 2024
Objective Data
-
Labs:
Laboratory Results
11/25/24
04:48
WBC 5.4
Hgb 9.1 L
Hct 31.4 L
Plt Count 217 D
PT 20.7 H
INR 1.72
Sodium 139
Potassium 4.7
Chloride 106
Carbon Dioxide 20 L
BUN 31 H
Creatinine 1.6 H
Glucose 192 H
Calcium 8.3 L
Total Bilirubin 0.6
AST 17
ALT 30
Alkaline Phosphatase 227 H
Vital Signs:
Vital Signs
Temp Pulse Resp BP Pulse Ox
97.7 F 84 15 109/67 94
11/25/24 07:36 11/25/24 10:45 11/25/24 10:45 11/25/24 10:00 11/25/24 10:30
I&O
11/24/24 11/25/24 11/26/24
06:59 06:59 06:59
Intake Total 1000 / 1000
Output Total 100 / 100 1050 / 1050
Balance 900 / 900 -1050 / -1050
Review of Systems
-
History Source: Patient
All other systems: Reviewed and negative
Physical Exam
-
General: No Apparent Distress and Comfortable
HEENT: Normocephalic
Respiratory: Clear to Auscultation
Cardiac: Regular Rhythm
GI: Soft, Nontender and Nondistended
Musculoskeletal: No Clubbing, No Cyanosis, Edema, Right Lower Extrem and Edema, Left Lower Extrem
Neuro: Awake, Alert, Oriented and AO x 3
Psych: Calm
--- NOTE | 2024-11-25 12:00 | PTCARENOTE ---
Assumed care of pt from wire drawing die maker RN. AAOx3. A.fib on tele, HRs 80s-100s. Amio gtt at 0.5 mg/min. Plan to transition to PO amio this evening. Remains on 4L nasal cannula at this time. SpO2 94%. #[address] Drainage bag with tea/brown
color urine. Urine reflex culture sent. Pt resting in bed, call fernandez in reach. Assessment documented.
--- NOTE | 2024-11-25 13:11 | WOUNDNOTE ---
[facility] RN note: Patient admitted with a fib, Covid pneumonia. Patient admitted from rehab.
See H&P for complete history.
PMH: a fib (Eliquis), HTN, BPH, CAD, CVA, prostate ca undergoing radiation therapy, CHF.
Wound Location and type/assessment: Patient admitted with: red sacrum, mostly blanchable.
Appetite: had 100% at lunch yesterday documented.
Pressure redistribution devices in place: [employer] air bed. Patient can turn self in bed. Air chair cushion.
Plan: Protective sacral shaped silicone border foam applied to sacrum. Patient turned to R semi side lying position. Heels off bed with air chair cushion.
Discussed with JOSEPH Herrera. Care plan to be updated. Will sign off. Call if needed.
--- NOTE | 2024-11-25 14:11 | W.PN.CD ---
Addendum entered and electronically signed by Chano Walters MD 11/25/24 14:19:
Correction: HE IS ON IV HEPARIN and not yet on Eliquis. When move to Eliquis check current Cr to pick dose.
Original Note:
Today's Communication / Plan
-
Stop IV Amio
Go to PO Amio, stop if we learn he has permanent AFib
Watch for need to decrease his PO Dilt/metoprolol doses with new Amio
Continue Lasix and watch edema
Eventual echo and adjust GDMT for HF over time
Decrease Eliquis from 5 to 2.5 mg PO BID as Cr has increased, monitor if Cr improves then move Eliquis back to 5 BID
Impression / Plan
-
Covid-19:
-cough, hypoxia, evidence for possible PNA on CXR. On O2 by NC.
-management per primary team
AFIB with RVR:
-rates fast, which apparently has been issue per . This is in setting of acute illness.
-he is on diltiazem 240 mg daily as OP, as well as metoprolol 150 mg PO BID
-Move to PO AMIO. Watch for need to adjust PO Dilt and PO Metoprolol DOSE
-Decrease Eliquis from 5 to 2.5 mg PO BID as Cr has increased, monitor if Cr improves then move Eliquis back to 5 BID
-no echo right now with fast rates and frequent coughing, as noted records requested
- If we learn he has permanent AFIb then AMIO will be stopped
CHF, adcbd-wz-eqmbeoz- type unknown:
-per chart, patient with hx of this, though not on OP diuretic
-records requested
-he has BLE edema, which per chart is chronic
-BNP 7590
-monitor response to IV Lasix,
-echo as above, eventually get echo and as improves adjust GDMT
Anemia:
-baseline unknown
-monitor
CAD per chart:
-details unknown
-no CP, trop fine
-on Eliquis/statin
HTN:
-elevated
-monitor on dilt drip, which is being increased
Physical Exam
Vital Signs/Labs
Vital Signs
Temp Pulse Resp BP Pulse Ox
97.7 F 83 13 89/65 93
11/25/24 11:51 11/25/24 12:15 11/25/24 12:15 11/25/24 12:00 11/25/24 12:15
11/24/24 11/25/24 11/26/24
06:59 06:59 06:59
Actual Weight 80.4 kg 82 kg
11/25/24 04:48
11/25/24 04:48
PT 20.7 Sec (11.4-14.6) H 11/25/24 04:48
INR 1.72 11/25/24 04:48
Magnesium 1.5 mg/dl (1.6-2.3) L 11/25/24 04:48
11/24/24
03:54
Sho-I-Uxuvlwjnkaq Pept 7590
LAB Results
11/24/24
03:54
Troponin I < 0.012
Physical Exam
Constitutional: No acute distress
Cardiovascular: Rhythm/rate is irregular and Pedal edema present
Respiratory: Respiratory effort normal and Crackles Absent
GI: Soft and Distention absent
Neuro/Psych: Alert
Data Reviewed
-
Date of Service: November 25, 2024
[2024-11-25 14:18] LABS: Urine Albumin 3+ (Neg - Trace); Urine Bilirubin 1+ (Negative); Urine Character Cloudy (Clear); Urine Color Brown; Urine Glucose Negative (Negative); Urine Ketone 1+ (Negative); Urine Leukocyte 3+ (Negative); Urine Nitrite Positive (Negative); Urine Occult Blood 4+ (Negative); Urine Urobilinogen 1+ (Neg - 1+)
[2024-11-25 15:13] LABS: Urine Amorphous Seen; Urine Red Blood Cell >100 /HPF (0-2)
[2024-11-25 15:14] LABS: Urine Bacteria Many (Negative)
--- NOTE | 2024-11-25 16:30 | CM ---
Addendum entered by Anais Gongora RN 11/28/24 16:08:
correction typo: PT & OT; requires assist of 2, recommend skilled rehab.
Original Note:
Ivorian/Vincentian speaking patient from [facility] with Dx COVID-19 pneumonia, Afib. O2 3.5 L. Receiving IV Abx, IV Decadron, IV Lasix, IV Remdesivir. PT & OT; requires assist of e, recommends skilled rehab. Seen by wound care nurse.
Spoke with patient's Shanti; discussed patient's mobility as per PT/OT from today. still undecided if she wants patient to return to [facility] for rehab, and will decide when closer to d/c.
Plan watch for home O2 needs.
Plan follow up with about SNF for rehab vs home with VN, when closer to d/c.
[2024-11-25] MEDS: LIPITOR 40 MG PO (17:02)
[2024-11-25] MEDS: PACERONE 400 MG PO (20:42)
[2024-11-25] MEDS: ELIQUIS 2.5 MG PO (20:42)
[2024-11-26] VITALS (8 sets, daily range): BP systolic 101–123; BP diastolic 64–83; BMI 28.1
[2024-11-26 04:59] LABS: % Immature Granulocytes 0.6 % (0-0.5); % Lymphocytes 8.9 % (20.5-51.1); % Neutrophils 85.5 % (42.2-75.2); Absolute Lymphocytes 0.4 10^3/uL (1.2-3.4); Absolute Monocytes 0.2 10^3/uL (0.1-0.6); Hematocrit 29.9 % (39.0-52.0); Hemoglobin 8.8 g/dL (13.0-18.0); Mean Corp Hgb Conc. 29.4 g/dL (33.0-37.0); Mean Corpuscular Hgb 24.7 pg (27.0-31.0); Mean Platelet Volume 10.4 fL (7.4-10.4); Nucleated Red Blood Cells % 0 % (-); Platelet Count 200 10^3/uL (130-400); Red Blood Cell Count 3.56 10^6/uL (4.70-6.10); Red Cell Dist. Width 19.5 % (11.5-14.5); White Blood Cell Count 4.6 10^3/uL (4.8-10.8)
[2024-11-26 05:39] LABS: ALT (SGPT) 24 U/L (0-50); AST (SGOT) 13 U/L (17-59); Albumin 3.1 g/dl (3.5-5.0); Alkaline Phosphatase 187 U/L (38-126); Blood Urea Nitrogen 41 mg/dl (9-20); Calcium 8.3 mg/dl (8.4-10.2); Carbon Dioxide 19 mmol/L (22-30); Chloride 104 mmol/L (98-107); Estimated Creatinine Clearance 29 ml/min; Glucose 165 mg/dl (70-99); Potassium 5.1 mmol/L (3.5-5.1); Sodium 136 mmol/L (135-145); Total Bilirubin 0.5 mg/dl (0.2-1.3); Total Protein 5.8 g/dl (6.3-8.2); eGFR 34.57
[2024-11-26] MEDS: DECADRON 6 MG IV (08:33)
[2024-11-26] MEDS: PACERONE 400 MG PO ×2 (08:36→20:25)
[2024-11-26] MEDS: VITAMIN E 200 UNITS PO (08:36)
[2024-11-26] MEDS: VIBRAMYCIN 100 MG PO ×2 (08:36→20:25)
[2024-11-26] MEDS: FLOMAX 0.4 MG PO (08:37)
[2024-11-26] MEDS: PROTONIX 40 MG PO ×2 (08:37→20:25)
[2024-11-26] MEDS: ZINC 50 MG PO (08:38)
[2024-11-26] MEDS: LOPRESSOR 150 MG PO ×2 (08:38→20:25)
[2024-11-26] MEDS: LASIX 40 MG IV (08:39)
[2024-11-26] MEDS: LIDOCAINE 4% PATCH 1 PATCH TOPICAL (08:41)
[2024-11-26] MEDS: ELIQUIS 2.5 MG PO ×2 (08:41→20:25)
[2024-11-26] MEDS: ROCEPHIN 1000 MG IV (08:42)
[2024-11-26] MEDS: STERILE WATER FOR INJECTION 10 ML IV (08:42)
--- NOTE | 2024-11-26 10:15 | W.PN.UPDATE ---
Update Note
Progress Note Update
-Telemetry reviewed; rate controlled atrial fibrillation at 80-100 bpm.
-Continue current doses of amiodarone and metoprolol tartrate.
--- NOTE | 2024-11-26 12:03 | W.PN.HOSP.TC ---
Addendum entered and electronically signed by David Jaeger MD 11/26/24 12:08:
correction US LE pending
Original Note:
Today's Communication/Plan
-
cont Abx
wean off O2
stop Lasix
Labs in AM
repeat chest XR
Assessment / Plan
Assessment / Plan
84yo M with PMHC of Afib, HTN, HLD, BPH, GERD, CAD, Hx of CVA, prostate CA undergoing RT came with cough, hypoxia from rehab, found COVID-19 pneumonia complicated by Afib with RVR
A/P:
#COVID-19 pneumonia with acute hypoxic respiratory failure
#Leukopenia 2/2 viral disease
#R basilar opacity, concern for pneumonia
ESR elevated, follow ferritin and procalcitonin
Remdesivir till 11/28/24 and follow LFT
Decadron and wean off O2
Zinc and vit E supplements
Ceftriaxone/Doxy
#Afib, unspecified with RVR
#CAD stable
Switched to Amiodarone from Cardizem. Cardizem home dose stopped too
telemetry
Eliquis to cont
#B/L LE edema
US neg for DVT
#CHF, unspecified
Lasix, follow weight, Cr and electrolytes
Cardiology consult: defer Echo to them as discussed
#ROMA
hold lasix
follow Cr
#Anemia most likely 2/2 prostate CA (anemia of chronic disease) and MARIE
hold iron with acute infection
check FOBT
follow CBC
#Elevated alk.phos 2/2 prostate CA
no RUQ pain
follow LFT
#Essential HTN
#CAD, stable
#GERD
#HLD
cont home meds
DVt ppx Eliquis
DNR/DNI
I have spent at least 36min reviewing chart, test results, communicating with consultants, family and providing direct patient care
Anticipated Discharge: > 48 hours
Subjective/Interval History
-
Date of Service: November 26, 2024
Objective Data
-
Labs:
Laboratory Results
11/26/24
04:41
WBC 4.6 L
Hgb 8.8 L
Hct 29.9 L
Plt Count 200
Sodium 136
Potassium 5.1
Chloride 104
Carbon Dioxide 19 L
BUN 41 H
Creatinine 1.9 H
Glucose 165 H
Calcium 8.3 L
Total Bilirubin 0.5
AST 13 L
ALT 24
Alkaline Phosphatase 187 H
Vital Signs:
Vital Signs
Temp Pulse Resp BP Pulse Ox
97.7 F 81 13 116/77 93
11/26/24 07:05 11/26/24 06:00 11/26/24 06:00 11/26/24 06:00 11/26/24 06:00
I&O
11/25/24 11/26/24 11/27/24
06:59 06:59 07:59
Output Total 1050 / 1050 125 / 125
Balance -1050 / -1050 -125 / -125
Review of Systems
-
History Source: Patient
All other systems: Reviewed and negative
Physical Exam
-
General: No Apparent Distress
HEENT: Normocephalic
Respiratory: Decreased Breath Sounds (R)
Cardiac: Irregular Rhythm
GI: Soft, Nontender and Nondistended
Musculoskeletal: No Clubbing, No Cyanosis and No Edema
Skin: Warm
Neuro: Awake, Alert, Oriented and AO x 3
Psych: Calm
[2024-11-26] MEDS: VEKLURY 250 MG IV (12:38)
[2024-11-26] MEDS: LIPITOR 40 MG PO (18:00)
[2024-11-27] VITALS (12 sets, daily range): BP systolic 93–139; BP diastolic 60–93; BMI 28.1
--- NOTE | 2024-11-27 01:22 | PTCARENOTE ---
assumed care of patient. pt is AAOx3, swazi speaking but with some broken georgian. on 4L NC 95%. lidocaine patch removed from lower back at HS. able to take pills without issues. moist non-productive cough noted. denies any SOB. care ongoing.
[2024-11-27 05:57] LABS: ALT (SGPT) 21 U/L (0-50); AST (SGOT) 13 U/L (17-59); Albumin 3.1 g/dl (3.5-5.0); Alkaline Phosphatase 174 U/L (38-126); Blood Urea Nitrogen 46 mg/dl (9-20); Calcium 8.5 mg/dl (8.4-10.2); Carbon Dioxide 19 mmol/L (22-30); Chloride 103 mmol/L (98-107); Estimated Creatinine Clearance 30 ml/min; Glucose 158 mg/dl (70-99); Magnesium 2.1 mg/dl (1.6-2.3); Potassium 4.7 mmol/L (3.5-5.1); Sodium 135 mmol/L (135-145); Total Bilirubin 0.6 mg/dl (0.2-1.3); Total Protein 5.8 g/dl (6.3-8.2); eGFR 36.89
[2024-11-27 06:03] LABS: % Immature Granulocytes 0.4 % (0-0.5); % Lymphocytes 8.4 % (20.5-51.1); % Monocytes 5.8 % (1.7-9.3); % Neutrophils 85.4 % (42.2-75.2); Absolute Lymphocytes 0.4 10^3/uL (1.2-3.4); Absolute Monocytes 0.3 10^3/uL (0.1-0.6); Hematocrit 29.5 % (39.0-52.0); Hemoglobin 9.2 g/dL (13.0-18.0); Mean Corp Hgb Conc. 31.2 g/dL (33.0-37.0); Mean Corpuscular Hgb 25.8 pg (27.0-31.0); Mean Corpuscular Volume 82.6 fL (80.0-94.0); Mean Platelet Volume 10.7 fL (7.4-10.4); Nucleated Red Blood Cells % 0 % (-); Platelet Count 196 10^3/uL (130-400); Red Blood Cell Count 3.57 10^6/uL (4.70-6.10); Red Cell Dist. Width 18.9 % (11.5-14.5); White Blood Cell Count 4.7 10^3/uL (4.8-10.8)
[2024-11-27] MEDS: LIDOCAINE 4% PATCH 1 PATCH TOPICAL (09:48)
[2024-11-27] MEDS: LASIX 40 MG IV ×2 (09:50→17:11)
[2024-11-27] MEDS: LOPRESSOR 150 MG PO ×2 (09:51→19:43)
[2024-11-27] MEDS: ELIQUIS 2.5 MG PO ×2 (09:51→19:43)
[2024-11-27] MEDS: FLOMAX 0.4 MG PO (09:55)
[2024-11-27] MEDS: ZINC 50 MG PO (09:56)
[2024-11-27] MEDS: VIBRAMYCIN 100 MG PO ×2 (09:57→19:44)
[2024-11-27] MEDS: VITAMIN E 200 UNITS PO (09:58)
[2024-11-27] MEDS: PACERONE 400 MG PO ×2 (09:58→19:44)
[2024-11-27] MEDS: PROTONIX 40 MG PO ×2 (09:58→19:43)
[2024-11-27] MEDS: DECADRON 6 MG IV (09:59)
[2024-11-27] MEDS: ROCEPHIN 1000 MG IV (10:01)
[2024-11-27] MEDS: STERILE WATER FOR INJECTION 10 ML IV (10:01)
--- NOTE | 2024-11-27 12:27 | W.PN.HOSP.TC ---
Today's Communication/Plan
-
cont abx
Lasix BID
follow AM labs
Wean off O2
Assessment / Plan
Assessment / Plan
84yo M with PMHC of Afib, HTN, HLD, BPH, GERD, CAD, Hx of CVA, prostate CA undergoing RT came with cough, hypoxia from rehab, found COVID-19 pneumonia complicated by Afib with RVR
A/P:
#COVID-19 pneumonia with acute hypoxic respiratory failure
#Leukopenia 2/2 viral disease
#R basilar opacity, concern for pneumonia
ESR elevated, follow ferritin and procalcitonin
Remdesivir till 11/28/24 and follow LFT
Decadron and wean off O2
Zinc and vit E supplements
Ceftriaxone/Doxy
#Afib, unspecified with RVR
#CAD stable
Switched to Amiodarone from Cardizem. Cardizem home dose stopped too
telemetry
Eliquis to cont
#B/L LE edema
US neg for DVT
#CHF, unspecified
Lasix, follow weight, Cr and electrolytes
Cardiology consult: defer Echo, cont diuresis
CT with anasarca - cont Lasix, follow Cr
#ROMA
most likely 2/2 fluid overload
follow Cr
#Anemia most likely 2/2 prostate CA (anemia of chronic disease) and MARIE
hold iron with acute infection
check FOBT
follow CBC
#Elevated alk.phos 2/2 prostate CA
no RUQ pain
follow LFT
#Essential HTN
#CAD, stable
#GERD
#HLD
cont home meds
DVt ppx Eliquis
DNR/DNI
I have spent at least 36min reviewing chart, test results, communicating with consultants, family and providing direct patient care
Anticipated Discharge: > 48 hours
Subjective/Interval History
-
Date of Service: November 27, 2024
Objective Data
-
Labs:
Laboratory Results
11/27/24
05:20
WBC 4.7 L
Hgb 9.2 L
Hct 29.5 L
Plt Count 196
Sodium 135
Potassium 4.7
Chloride 103
Carbon Dioxide 19 L
BUN 46 H
Creatinine 1.8 H
Glucose 158 H
Calcium 8.5
Total Bilirubin 0.6
AST 13 L
ALT 21
Alkaline Phosphatase 174 H
Vital Signs:
Vital Signs
Temp Pulse Resp BP Pulse Ox
97.6 F 85 14 134/93 95
11/27/24 11:16 11/27/24 06:01 11/27/24 06:01 11/27/24 06:01 11/27/24 06:01
I&O
11/26/24 11/27/24 11/28/24
05:59 06:59 06:59
Intake Total 480 / 480
Output Total
Balance 480 / 480
Review of Systems
-
History Source: Patient
All other systems: Reviewed and negative
Physical Exam
-
General: No Apparent Distress
HEENT: Normocephalic
Respiratory: Clear to Auscultation
Cardiac: Regular Rhythm
GI: Soft, Nontender and Distended
Genito-urinary: Other (swallen scrotum)
Skin: Warm
Neuro: Awake, Alert, Oriented and AO x 3
Psych: Calm
[2024-11-27] MEDS: VEKLURY 250 MG IV (14:03)
[2024-11-27] MEDS: ROBITUSSIN AC 10 ML PO (14:08)
[2024-11-27] MEDS: LIPITOR 40 MG PO (17:11)
[2024-11-28] VITALS (12 sets, daily range): BP systolic 114–149; BP diastolic 60–98; O2SAT 91; BMI 27.5
--- NOTE | 2024-11-28 00:14 | PTCARENOTE ---
assumed care of patient. pt is AAOx3, forgetful, Sao Tomean speaking with broken Latvian. on 2L, 95%. no c/o pain. able to take pills without issues. lidocaine patch removed from lower back. able to turn self in bed. care ongoing.
[2024-11-28 06:28] LABS: % Immature Granulocytes 0.7 % (0-0.5); % Lymphocytes 6.6 % (20.5-51.1); % Monocytes 7.2 % (1.7-9.3); % Neutrophils 85.5 % (42.2-75.2); Absolute Lymphocytes 0.4 10^3/uL (1.2-3.4); Absolute Monocytes 0.4 10^3/uL (0.1-0.6); Absolute Neutrophils 4.8 10^3/uL (1.4-6.5); Hemoglobin 9.1 g/dL (13.0-18.0); Mean Corp Hgb Conc. 30.3 g/dL (33.0-37.0); Mean Corpuscular Volume 82.4 fL (80.0-94.0); Mean Platelet Volume 10.6 fL (7.4-10.4); Nucleated Red Blood Cells % 0 % (-); Platelet Count 186 10^3/uL (130-400); Red Blood Cell Count 3.64 10^6/uL (4.70-6.10); Red Cell Dist. Width 18.6 % (11.5-14.5); White Blood Cell Count 5.6 10^3/uL (4.8-10.8)
[2024-11-28 06:47] LABS: ALT (SGPT) 21 U/L (0-50); AST (SGOT) 15 U/L (17-59); Albumin 3.2 g/dl (3.5-5.0); Alkaline Phosphatase 169 U/L (38-126); Blood Urea Nitrogen 49 mg/dl (9-20); Calcium 8.4 mg/dl (8.4-10.2); Carbon Dioxide 21 mmol/L (22-30); Chloride 102 mmol/L (98-107); Estimated Creatinine Clearance 30 ml/min; Glucose 177 mg/dl (70-99); Potassium 3.8 mmol/L (3.5-5.1); Sodium 136 mmol/L (135-145); Total Bilirubin 0.6 mg/dl (0.2-1.3); Total Protein 5.9 g/dl (6.3-8.2); eGFR 36.89
[2024-11-28 06:50] LABS: NT-proBNP 13200 pg/ml
[2024-11-28] MEDS: LOPRESSOR 150 MG PO ×2 (08:29→20:45)
[2024-11-28] MEDS: FLOMAX 0.4 MG PO (08:29)
[2024-11-28] MEDS: VIBRAMYCIN 100 MG PO ×2 (08:29→20:45)
[2024-11-28] MEDS: ZINC 50 MG PO (08:29)
[2024-11-28] MEDS: PACERONE 400 MG PO (08:29)
[2024-11-28] MEDS: PROTONIX 40 MG PO ×2 (08:29→20:45)
[2024-11-28] MEDS: VITAMIN E 200 UNITS PO (08:29)
[2024-11-28] MEDS: DECADRON 6 MG IV (08:30)
[2024-11-28] MEDS: ELIQUIS 2.5 MG PO ×2 (08:30→20:48)
[2024-11-28] MEDS: STERILE WATER FOR INJECTION 10 ML IV (08:30)
[2024-11-28] MEDS: ROCEPHIN 1000 MG IV (08:30)
[2024-11-28] MEDS: LASIX 40 MG IV ×2 (08:31→17:18)
[2024-11-28] MEDS: LIDOCAINE 4% PATCH 1 PATCH TOPICAL (08:31)
[2024-11-28] MEDS: ROBITUSSIN AC 10 ML PO ×2 (08:42→20:58)
--- NOTE | 2024-11-28 08:50 | W.PN.CD ---
Today's Communication / Plan
-
Stop Amio 400 bid
continue metoprolol 150 BID,
Resume outpatient diltiazem
Continue Lasix 40 IV BID, may need to increase dose if no additional weight loss,
Impression / Plan
-
Covid-19:
-cough, hypoxia, evidence for possible PNA on CXR. On O2 by NC.
-management per primary team
AFIB with RVR:
-rates better, around 100
-he is on diltiazem 240 mg daily as OP, as well as metoprolol 150 mg PO BID
-Added PO AMIO. Watch for need to adjust PO Dilt and PO Metoprolol DOSE
-Decreased Eliquis from 5 to 2.5 mg PO BID as Cr has increased, monitor if Cr improves then move Eliquis back to 5 BID
-no echo right now with fast rates and frequent coughing, as noted records requested
-If we learn he has permanent AFIb then AMIO will be stopped
HF, dcjol-qn-stjabmy- type unknown:
-Admit weight 80.4 kg, now 81.8 kg, peak weight 83.7 on 11/27/2024
-per chart, patient with hx of this, though not on OP diuretic
-records requested
-he has BLE edema, which per chart is chronic
-BNP 7590
-monitor response to IV Lasix,
-echo as above, eventually get echo and as improves adjust GDMT
Anemia:
-baseline unknown
-monitor
CAD per chart:
-details unknown
-no CP, trop fine
-on Eliquis/statin
HTN:
-elevated
-monitor on dilt drip, which is being increased
Acute kidney injury
- Eliquis dose decreased last week by me
Subjective:
No CP but poor historian
Physical Exam
Vital Signs/Labs
Vital Signs
Temp Pulse Resp BP Pulse Ox
98.0 F 99 16 145/98 95
11/28/24 03:55 11/28/24 08:31 11/28/24 06:00 11/28/24 08:31 11/28/24 06:00
11/27/24 11/28/24 11/29/24
06:59 06:59 06:59
Actual Weight 81.873 kg
11/28/24 05:31
11/28/24 05:31
PT 20.7 Sec (11.4-14.6) H 11/25/24 04:48
INR 1.72 11/25/24 04:48
Magnesium 2.0 mg/dl (1.6-2.3) 11/28/24 05:31
11/24/24 11/28/24
03:54 05:31
Vem-R-Xarcbrxplxw Pept 7590 [id number]
Physical Exam
Constitutional: No acute distress
EENT: Anicteric
Cardiovascular: Rhythm/rate is irregular and Pedal edema present (1+)
Respiratory: Respiratory effort normal and Lungs clear to auscul.
Neuro/Psych: Alert
Data Reviewed
-
Date of Service: November 28, 2024
[2024-11-28] MEDS: VEKLURY 250 MG IV (12:52)
--- NOTE | 2024-11-28 13:11 | W.PN.HOSP.TC ---
Today's Communication/Plan
-
Oxygenation improved and currently on room air
continue antibiotics for another 24 to 48 hours, consider shorten the course given no significant data for bacterial infection.
Weaned off corticosteroids.
Completed remdesivir.
Continue amiodarone and metoprolol for rate control.
Continue anticoagulation.
Echo as per cardiology.
Continue IV diuresis monitoring daily weights
Assessment / Plan
Assessment / Plan
84yo M with PMHC of Afib, HTN, HLD, BPH, GERD, CAD, Hx of CVA, prostate CA undergoing RT came with cough, hypoxia from rehab, found COVID-19 pneumonia complicated by Afib with RVR
A/P:
#COVID-19 pneumonia with acute hypoxic respiratory failure
#Leukopenia 2/2 viral disease
#R basilar opacity, concern for pneumonia
ESR elevated
Procalcitonin within normal limits
Remdesivir till 11/28/24 and follow LFT
Decadron and wean off O2
Zinc and vit E supplements
Ceftriaxone/Doxy
#Afib, unspecified with RVR
#CAD stable
Switched to Amiodarone from Cardizem. Cardizem home dose stopped too
telemetry
Eliquis to cont. Dose adjusted to renal function
#B/L LE edema
US neg for DVT
#CHF, unspecified
Acute hypoxic respiratory insufficiency secondary to decompensated CHF. Currently weaned off O2 supplementation as of 11/28
Lasix, follow weight, Cr and electrolytes
Cardiology consult: defer Echo, cont diuresis
CT with anasarca - cont Lasix, follow Cr
#ROMA suspect cardiorenal state
most likely 2/2 fluid overload
follow Cr
#Anemia most likely 2/2 prostate CA (anemia of chronic disease) and MARIE
hold iron with acute infection
check FOBT
follow CBC
#Elevated alk.phos 2/2 prostate CA
no RUQ pain
follow LFT
#Essential HTN
#CAD, stable
#GERD
#HLD
cont home meds
DVt ppx Eliquis
DNR/DNI
Anticipated Discharge: 24 - 48 hours
Subjective/Interval History
-
Date of Service: November 28, 2024
Objective Data
-
Labs:
Laboratory Results
11/28/24
05:31
WBC 5.6
Hgb 9.1 L
Hct 30.0 L
Plt Count 186
Sodium 136
Potassium 3.8
Chloride 102
Carbon Dioxide 21 L
BUN 49 H
Creatinine 1.8 H
Glucose 177 H
Calcium 8.4
Total Bilirubin 0.6
AST 15 L
ALT 21
Alkaline Phosphatase 169 H
Vital Signs:
Vital Signs
Temp Pulse Resp BP Pulse Ox
97.8 F 99 15 143/95 93
11/28/24 07:40 11/28/24 12:00 11/28/24 12:00 11/28/24 12:00 11/28/24 12:00
I&O
11/27/24 11/28/24 11/29/24
06:59 06:59 06:59
Intake Total 480 / 480 840 / 840
Output Total 150 / 150 350 / 350
Balance 330 / 330 490 / 490
Physical Exam
-
General: No Apparent Distress
HEENT: Normocephalic
Respiratory: Clear to Auscultation
Cardiac: Regular Rhythm
GI: Soft, Nontender and Distended
Genito-urinary: Other (swallen scrotum)
Skin: Warm
Neuro: Awake, Alert, Oriented and AO x 3
Psych: Calm
--- NOTE | 2024-11-28 15:11 | CM ---
[place] speaking patient from [facility] with Dx COVID-19 pneumonia, Afib. Room air. Receiving IV Abx, IV Decadron, IV Lasix. IV Remdesivir completed today. PT & OT; recommend skilled rehab.
Met with patient's Shanti; patient and agree to d/c with short term rehab again at [facility]. Patient is hoping he will only need to stay a few days at rehab.
Spoke with Rachell, s, [facility]; they are able to accept the patient back and should have an available bed tomorrow or Wed if needed. Facility , Dr Fortino Chase . Rachell requests [facility] as new referral (not
return) however new PASSR not needed.
Plan SNF auth request Transfer Pt once d/c date known.
--- NOTE | 2024-11-28 15:23 | PTCARENOTE ---
Patient AOx3. Patient is forgetful and primary guinean speaking. Bed alarm/chair alarm on and audible. Computer Peripheral Equipment Operator via from provided by the hospital at bedside. Patient on RA with SpO2 greater than 92%. MARTINEZ. A fib with BBB on monitor. +2 B/L LE
edema. Incontinent to urine at times. +2 scrotal edema. Assist x1 with RW when OOB. Respiratory precautions maintained. Patients at bedside. Call fernandez within reach, bed in lowest position, and bed of wheels locked.
--- NOTE | 2024-11-28 15:25 | PTCARENOTE ---
Verbal report given to Lucian RN on 2N. Patient transferred via wheelchair by RN. Patient belongings transferred with patient.
--- NOTE | 2024-11-28 16:00 | PTCARENOTE ---
Patient transferred from IMU to . Report received from Chelle RUIZ. VSS. Patient on tele monitor, Afib with BBB. Patient and oriented to floor. Call fernandez within reach.
[2024-11-28] MEDS: LIPITOR 40 MG PO (17:19)
[2024-11-29 03:38] VITALS: BP 133/90
[2024-11-29 05:02] LABS: % Immature Granulocytes 0.7 % (0-0.5); % Lymphocytes 10.8 % (20.5-51.1); % Monocytes 7.7 % (1.7-9.3); % Neutrophils 80.8 % (42.2-75.2); Absolute Lymphocytes 0.3 10^3/uL (1.2-3.4); Absolute Monocytes 0.2 10^3/uL (0.1-0.6); Absolute Neutrophils 2.3 10^3/uL (1.4-6.5); Hematocrit 28.7 % (39.0-52.0); Hemoglobin 8.6 g/dL (13.0-18.0); Mean Corpuscular Hgb 24.7 pg (27.0-31.0); Mean Corpuscular Volume 82.5 fL (80.0-94.0); Nucleated Red Blood Cells % 0 % (-); Platelet Count 149 10^3/uL (130-400); Red Blood Cell Count 3.48 10^6/uL (4.70-6.10); Red Cell Dist. Width 18.6 % (11.5-14.5); White Blood Cell Count 2.9 10^3/uL (4.8-10.8)
[2024-11-29 05:05] LABS: Blood Urea Nitrogen 47 mg/dl (9-20); Calcium 8.1 mg/dl (8.4-10.2); Carbon Dioxide 27 mmol/L (22-30); Chloride 101 mmol/L (98-107); Estimated Creatinine Clearance 36 ml/min; Glucose 151 mg/dl (70-99); Potassium 3.1 mmol/L (3.5-5.1); Sodium 139 mmol/L (135-145); eGFR 45.91
[2024-11-29 06:00] VITALS: BMI 26.6
[2024-11-29 07:18] VITALS: BP 156/93
--- NOTE | 2024-11-29 08:03 | W.PN.CD ---
Today's Communication / Plan
-
Replete potassium
Continue lasix IV 40 BID
May need to increase Eliquis to 5mg BID tomorrow
Echo once euvolemic
Impression / Plan
-
Covid-19:
-cough, hypoxia, evidence for possible PNA on CXR. Supplemental O2 weaned.
-management per primary team
HF, wnqzj-qv-nunjwof- type unknown:
-Weight downtrending and Cr improving with diuresis
-per chart, patient with hx of this, though not on OP diuretic. Records requested
-he has BLE edema, which per chart is chronic
-BNP 7590
-continue IV Lasix 40mg BID
-echo once closer to euvolemic and add GDMT based on LVEF
AFIB with RVR:
-rates better, around 100
-continue home regimen of diltiazem 240 mg daily, metoprolol 150 mg PO BID
-Amiodarone stopped given that his afib is permanent
-Decreased Eliquis from 5 to 2.5 mg PO BID as Cr has increased, monitor if Cr improves then move Eliquis back to 5 BID
Hypokalemia
-Ordered repletion
-Trend with diuresis. May need standing
Anemia:
-baseline unknown
-monitor
CAD per chart:
-details unknown
-no CP, trop fine
-on Eliquis/statin
HTN:
-well-controlled for age
-continue home meds
Acute kidney injury
-Trend with diuresis as above
Subjective:
No CV complaints. Breathing comfortably on room air.
Physical Exam
Vital Signs/Labs
Vital Signs
Temp Pulse Resp BP Pulse Ox
97.6 F 102 19 133/90 96
11/29/24 03:38 11/29/24 03:38 11/29/24 03:38 11/29/24 03:38 11/29/24 03:38
11/28/24 11/29/24 11/30/24
06:59 06:59 06:59
Actual Weight 81.873 kg 79.469 kg
11/29/24 04:12
11/29/24 04:12
PT 20.7 Sec (11.4-14.6) H 11/25/24 04:48
INR 1.72 11/25/24 04:48
Magnesium 2.0 mg/dl (1.6-2.3) 11/28/24 05:31
11/24/24 11/28/24
03:54 05:31
Pot-E-Mofzbpingtn Pept 7590 [id number]
Physical Exam
Constitutional: No acute distress and Comfortable
Cardiovascular: Rhythm/rate is irregular and Pedal edema present
Respiratory: Respiratory effort normal and Crackles Present
Data Reviewed
-
Date of Service: November 29, 2024
Medical Decision Making: Reviewed Test Results, Independent Historian Assessment, Test Interpretation and Review of Case with other Provider
EKG: Report Reviewed by me
Labs: Labs Reviewed by me
[2024-11-29] MEDS: KCL 40 MEQ PO (08:10)
[2024-11-29] MEDS: PROTONIX 40 MG PO ×2 (08:10→21:04)
[2024-11-29] MEDS: ZINC 50 MG PO (08:10)
[2024-11-29] MEDS: FLOMAX 0.4 MG PO (08:10)
[2024-11-29] MEDS: LOPRESSOR 150 MG PO ×2 (08:10→21:04)
[2024-11-29] MEDS: ELIQUIS 2.5 MG PO ×2 (08:10→21:04)
[2024-11-29] MEDS: VIBRAMYCIN 100 MG PO (08:10)
[2024-11-29] MEDS: CARDIZEM CD 240 MG PO (08:11)
[2024-11-29] MEDS: VITAMIN E 200 UNITS PO (08:12)
[2024-11-29] MEDS: LASIX 40 MG IV ×2 (08:13→15:27)
[2024-11-29] MEDS: DECADRON 6 MG IV (08:13)
[2024-11-29] MEDS: LIDOCAINE 4% PATCH 1 PATCH TOPICAL (08:13)
[2024-11-29] MEDS: STERILE WATER FOR INJECTION 10 ML IV (08:13)
[2024-11-29] MEDS: ROCEPHIN 1000 MG IV (08:14)
[2024-11-29 11:55] VITALS: BP 129/76
--- NOTE | 2024-11-29 12:15 | CM ---
Reviewed the chart notes. Referral sent and accepted in [facility] at discharge. Precert will be required. CM continues to be available to patient/family and is monitoring medical plan for needs at discharge.
Plan: Discharge to [facility] when medically stable and precert obtained.
--- NOTE | 2024-11-29 15:31 | W.PN.HOSP.TC ---
Today's Communication/Plan
-
IV Lasix with daily weights and renal function monitoring
Echo as per cardiology
Observe off antibiotics
Discontinue steroids
Physical therapy assessment
Assessment / Plan
Assessment / Plan
84yo M with PMHC of Afib, HTN, HLD, BPH, GERD, CAD, Hx of CVA, prostate CA undergoing RT came with cough, hypoxia from rehab, found COVID-19 pneumonia complicated by Afib with RVR
A/P:
#COVID-19 pneumonia with acute hypoxic respiratory failure
#Leukopenia 2/2 viral disease
#R basilar opacity, concern for pneumonia
ESR elevated
Procalcitonin within normal limits
Remdesivir till 11/28/24 and follow LFT
Completed Decadron on 11/29
Zinc and vit E supplements
Completed course of ceftriaxone doxycycline on 11/29
#Afib, unspecified with RVR
#CAD stable
Rate control off amiodarone back to Cardizem/metoprolol
telemetry
Eliquis to cont. Dose adjusted to renal function
#B/L LE edema
US neg for DVT
#CHF, unspecified
Acute hypoxic respiratory insufficiency secondary to decompensated CHF. Currently weaned off O2 supplementation as of 11/28
Lasix, follow weight, Cr and electrolytes
Cardiology consult: defer Echo, cont diuresis
CT with anasarca - cont Lasix, follow Cr
#ROMA suspect cardiorenal state
most likely 2/2 fluid overload
follow Cr
#Anemia most likely 2/2 prostate CA (anemia of chronic disease) and MARIE
hold iron with acute infection
check FOBT
follow CBC
#Elevated alk.phos 2/2 prostate CA
no RUQ pain
follow LFT
#Essential HTN
#CAD, stable
#GERD
#HLD
cont home meds
DVt ppx Eliquis
DNR/DNI
Anticipated Discharge: 24 - 48 hours
Subjective/Interval History
-
Date of Service: November 29, 2024
Objective Data
-
Labs:
Laboratory Results
11/29/24
04:12
WBC 2.9 L
Hgb 8.6 L
Hct 28.7 L
Plt Count 149
Sodium 139
Potassium 3.1 L
Chloride 101
Carbon Dioxide 27
BUN 47 H
Creatinine 1.5 H
Glucose 151 H
Calcium 8.1 L
Vital Signs:
Vital Signs
Temp Pulse Resp BP Pulse Ox
98.3 F 107 18 129/76 93
11/29/24 11:55 11/29/24 11:55 11/29/24 11:55 11/29/24 11:55 11/29/24 11:55
I&O
11/28/24 11/29/24 11/30/24
06:59 06:59 06:59
Intake Total 480 / 480 1860 / 1860
Output Total 150 / 150 1750 / 1750
Balance 330 / 330 110 / 110
Physical Exam
-
General: No Apparent Distress
HEENT: Normocephalic
Respiratory: Clear to Auscultation
Cardiac: Regular Rhythm
GI: Soft, Nontender and Distended
Genito-urinary: Other (swallen scrotum)
Skin: Warm
Neuro: Awake, Alert, Oriented and AO x 3
Psych: Calm
[2024-11-29 15:51] VITALS: BP 132/85
[2024-11-29] MEDS: LIPITOR 40 MG PO (17:20)
[2024-11-29 19:10] VITALS: BP 117/78
[2024-11-29] MEDS: DESENEX/MITRAZOL/ZEASORB 1 APPLIC TOPICAL (21:15)
[2024-11-29 23:35] VITALS: BP 138/83
[2024-11-30 04:52] LABS: % Immature Granulocytes 0.2 % (0-0.5); % Lymphocytes 9.1 % (20.5-51.1); % Monocytes 7.6 % (1.7-9.3); % Neutrophils 83.1 % (42.2-75.2); Absolute Lymphocytes 0.4 10^3/uL (1.2-3.4); Absolute Monocytes 0.3 10^3/uL (0.1-0.6); Absolute Neutrophils 3.4 10^3/uL (1.4-6.5); Hematocrit 29.8 % (39.0-52.0); Hemoglobin 9.3 g/dL (13.0-18.0); Mean Corp Hgb Conc. 31.2 g/dL (33.0-37.0); Mean Corpuscular Hgb 25.3 pg (27.0-31.0); Mean Corpuscular Volume 81.2 fL (80.0-94.0); Mean Platelet Volume 10.5 fL (7.4-10.4); Nucleated Red Blood Cells % 0 % (-); Platelet Count 171 10^3/uL (130-400); Red Blood Cell Count 3.67 10^6/uL (4.70-6.10); Red Cell Dist. Width 18.1 % (11.5-14.5); White Blood Cell Count 4.1 10^3/uL (4.8-10.8)
[2024-11-30 05:06] VITALS: BMI 24.9
[2024-11-30 05:23] LABS: Blood Urea Nitrogen 43 mg/dl (9-20); Calcium 8.1 mg/dl (8.4-10.2); Carbon Dioxide 33 mmol/L (22-30); Chloride 100 mmol/L (98-107); Estimated Creatinine Clearance 39 ml/min; Glucose 204 mg/dl (70-99); Potassium 3.2 mmol/L (3.5-5.1); Sodium 140 mmol/L (135-145); eGFR 49.87
[2024-11-30 08:18] VITALS: BP 153/103
[2024-11-30] MEDS: PROTONIX 40 MG PO ×2 (09:10→20:37)
[2024-11-30] MEDS: FLOMAX 0.4 MG PO (09:11)
[2024-11-30] MEDS: CARDIZEM CD 240 MG PO (09:11)
[2024-11-30] MEDS: LASIX 40 MG IV ×2 (09:11→15:27)
[2024-11-30] MEDS: VITAMIN E 200 UNITS PO (09:11)
[2024-11-30] MEDS: ZINC 50 MG PO (09:11)
[2024-11-30] MEDS: LOPRESSOR 150 MG PO ×2 (09:11→20:36)
[2024-11-30] MEDS: ELIQUIS 2.5 MG PO (09:11)
[2024-11-30] MEDS: LIDOCAINE 4% PATCH 1 PATCH TOPICAL (09:12)
[2024-11-30] MEDS: DESENEX/MITRAZOL/ZEASORB 1 APPLIC TOPICAL ×2 (09:12→20:37)
--- NOTE | 2024-11-30 10:37 | W.PN.CD ---
Today's Communication / Plan
-
Increase diltiazem to 360 mg daily
Increase Eliquis to 5 mg twice daily
Continue diuresis with Lasix IV twice daily
P.m. BMP for potassium repletion
Impression / Plan
-
Covid-19:
-cough, hypoxia, evidence for possible PNA on CXR. Supplemental O2 weaned.
-management per primary team
HF, oybht-uh-lokvoph- type unknown:
-Weight downtrending and Cr improving with diuresis
-per chart, patient with hx of this, though not on OP diuretic. Records requested
-he has BLE edema, which per chart is chronic
-BNP 7590
-continue IV Lasix 40mg BID
-echo once closer to euvolemic and add GDMT based on LVEF
AFIB with RVR:
-rates up today, 110s with movement
-continue metoprolol 150 mg PO BID, increase diltiazem to 360mg daily
-Amiodarone stopped
-Increase Eliquis back to 5 BID given Cr <1.5
Hypokalemia
-Ordered repletion
-Trend with diuresis. May need standing
Anemia:
-baseline unknown
-monitor
CAD per chart:
-details unknown
-no CP, trop fine
-on Eliquis/statin
HTN:
-well-controlled for age
-continue home meds
Acute kidney injury
-Trend with diuresis as above
Subjective:
No CV complaints. Breathing comfortably on room air.
Physical Exam
Vital Signs/Labs
Vital Signs
Temp Pulse Resp BP Pulse Ox
97.8 F 115 18 153/103 93
11/30/24 08:18 11/30/24 08:18 11/30/24 08:18 11/30/24 08:18 11/30/24 08:18
11/29/24 11/30/24 12/01/24
06:59 06:59 06:59
Actual Weight 79.469 kg 74.208 kg
11/30/24 04:27
PT 20.7 Sec (11.4-14.6) H 11/25/24 04:48
INR 1.72 11/25/24 04:48
Magnesium 2.0 mg/dl (1.6-2.3) 11/28/24 05:31
11/24/24 11/28/24
03:54 05:31
Lap-U-Dgyyqkkysva Pept 7590 [id number]
Physical Exam
Constitutional: No acute distress and Comfortable
Cardiovascular: Rhythm/rate is irregular, Pedal edema present and S1S2 is normal
Respiratory: Respiratory effort normal and Crackles Present
Data Reviewed
-
Date of Service: November 30, 2024
Medical Decision Making: Reviewed Test Results, Independent Historian Assessment, Test Interpretation and Review of Case with other Provider
EKG: Tracing Personally Visualized and interpreted
Echo: Report Reviewed by me
Labs: Labs Reviewed by me
[2024-11-30] MEDS: KCL 40 MEQ PO ×2 (10:47→16:56)
[2024-11-30] MEDS: CARDIZEM SR 120 MG PO (10:47)
[2024-11-30 10:55] VITALS: BP 146/87
--- NOTE | 2024-11-30 12:05 | CM ---
Chart reviewed
Referral sent and accepted in [facility] for [facility].
CM will need to obtain ins auth
PLAN: Discharge to [facility] when medically stable and precert obtained.
[2024-11-30 14:36] VITALS: BP 136/80
[2024-11-30 16:04] LABS: Blood Urea Nitrogen 41 mg/dl (9-20); Calcium 7.9 mg/dl (8.4-10.2); Carbon Dioxide 33 mmol/L (22-30); Chloride 98 mmol/L (98-107); Estimated Creatinine Clearance 42 ml/min; Glucose 248 mg/dl (70-99); Potassium 3.3 mmol/L (3.5-5.1); Sodium 138 mmol/L (135-145); eGFR 54.51
--- NOTE | 2024-11-30 16:22 | W.PN.HOSP.TC ---
Today's Communication/Plan
-
Continue IV diuresis
Assessment / Plan
Assessment / Plan
84yo M with PMHC of Afib, HTN, HLD, BPH, GERD, CAD, Hx of CVA, prostate CA undergoing RT came with cough, hypoxia from rehab, found COVID-19 pneumonia complicated by Afib with RVR
A/P:
#COVID-19 pneumonia with acute hypoxic respiratory failure
#Leukopenia 2/2 viral disease
#R basilar opacity, concern for pneumonia
ESR elevated
Procalcitonin within normal limits
Remdesivir till 11/28/24 and follow LFT
Completed Decadron on 11/29
Zinc and vit E supplements
Completed course of ceftriaxone doxycycline on 11/29
#Afib, unspecified with RVR
#CAD stable
Rate control off amiodarone back to Cardizem/metoprolol
telemetry
Eliquis to cont. Dose adjusted to renal function
#B/L LE edema
US neg for DVT
#CHF, unspecified
Acute hypoxic respiratory insufficiency secondary to decompensated CHF. Currently weaned off O2 supplementation as of 11/28
Lasix, follow weight, Cr and electrolytes
Cardiology consult: defer Echo, cont diuresis
CT with anasarca - cont Lasix, follow Cr
#ROMA suspect cardiorenal state
most likely 2/2 fluid overload
follow Cr
#Anemia most likely 2/2 prostate CA (anemia of chronic disease) and MARIE
hold iron with acute infection
check FOBT
follow CBC
#Elevated alk.phos 2/2 prostate CA
no RUQ pain
follow LFT
#Essential HTN
#CAD, stable
#GERD
#HLD
cont home meds
DVt ppx Eliquis
DNR/DNI
Anticipated Discharge: 24 - 48 hours
Subjective/Interval History
-
Date of Service: November 30, 2024
Objective Data
-
Labs:
Laboratory Results
11/30/24 11/30/24
04:27 15:18
WBC 4.1 L
Hgb 9.3 L
Hct 29.8 L
Plt Count 171
Sodium 140 138
Potassium 3.2 L 3.3 L
Chloride 100 98
Carbon Dioxide 33 H 33 H
BUN 43 H 41 H
Creatinine 1.4 H 1.3
Glucose 204 H 248 H
Calcium 8.1 L 7.9 L
Vital Signs:
Vital Signs
Temp Pulse Resp BP Pulse Ox
98 F 110 16 136/80 94
11/30/24 14:36 11/30/24 14:36 11/30/24 14:36 11/30/24 14:36 11/30/24 14:36
I&O
11/29/24 11/30/24 12/01/24
06:59 06:59 06:59
Intake Total 1859 / 1860 2039 / 2039
Output Total 1750 / 1750 2975 / 2975
Balance 110 / 110 -935 / -935
Physical Exam
-
General: No Apparent Distress
HEENT: Normocephalic
Respiratory: Clear to Auscultation
Cardiac: Regular Rhythm
GI: Soft, Nontender and Distended
Genito-urinary: Other (swallen scrotum)
Skin: Warm
Neuro: Awake, Alert, Oriented and AO x 3
Psych: Calm
[2024-11-30] MEDS: LIPITOR 40 MG PO (16:56)
[2024-11-30 19:26] VITALS: BP 121/64
[2024-11-30] MEDS: ELIQUIS 5 MG PO (20:36)
[2024-11-30 22:49] VITALS: BP 112/71
[2024-12-01] VITALS (8 sets, daily range): BP systolic 116–145; BP diastolic 70–92; PULSE 104–109; O2SAT 96; BMI 25.2
[2024-12-01] MEDS: LIDOCAINE 4% PATCH 1 PATCH TOPICAL (08:29)
[2024-12-01] MEDS: PROTONIX 40 MG PO ×2 (08:30→20:48)
[2024-12-01] MEDS: VITAMIN E 200 UNITS PO (08:30)
[2024-12-01] MEDS: FLOMAX 0.4 MG PO (08:30)
[2024-12-01] MEDS: LASIX 40 MG IV (08:30)
[2024-12-01] MEDS: CARDIZEM CD 360 MG PO (08:30)
[2024-12-01] MEDS: LOPRESSOR 150 MG PO ×2 (08:31→20:49)
[2024-12-01] MEDS: ELIQUIS 5 MG PO ×2 (08:31→20:48)
[2024-12-01] MEDS: KCL 40 MEQ PO (08:31)
[2024-12-01] MEDS: DESENEX/MITRAZOL/ZEASORB 1 APPLIC TOPICAL ×2 (08:32→20:48)
[2024-12-01] MEDS: TYLENOL 650 MG PO (08:34)
[2024-12-01] MEDS: ZINC 50 MG PO (08:34)
--- NOTE | 2024-12-01 10:13 | W.PN.CD ---
Today's Communication / Plan
-
.
Patient now off precautions. Echocardiogram to assess left ventricular function additional recommendations based on results
Replace potassium as directed by primary team
Can transition to oral Lasix
Continue rate control. And anticoagulation.
Patient can follow-up with primary manager image who also can direct long-term management of A-fib
Impression / Plan
-
Covid-19:
- Covid postive 11/24/24
-cough, hypoxia, evidence for possible PNA on CXR. Supplemental O2 weaned.
-management per primary team
HF, awtbh-ig-aanstqw- type unknown:
-Weight downtrending 75KG on 05/03/25. ( down 5 kg since 11/24/24)
-he has BLE edema, which per chart is chronic
-BNP 7590
-Transition oral Lasix
-echo - . GDMT based on LVEF
AFIB with RVR:
-rates up today, 110s with movement
-continue metoprolol 150 mg PO BID, increase diltiazem to 360mg daily
-Amiodarone stopped
-Increase Eliquis back to 5 BID given Cr <1.5
Hypokalemia
-Ordered repletion
-Trend with diuresis. May need standing
Anemia:
-baseline unknown
-monitor
CAD per chart:
-details unknown
-no CP, trop fine
-on Eliquis/statin
HTN:
-well-controlled for age
-continue home meds
Acute kidney injury
-Trend with diuresis as above
Subjective:
No CV complaints. Breathing comfortably on room air.
Physical Exam
Vital Signs/Labs
Vital Signs
Temp Pulse Resp BP Pulse Ox
98.6 F 107 18 141/92 92
12/01/24 07:30 12/01/24 08:31 12/01/24 07:30 12/01/24 08:31 12/01/24 07:30
11/30/24 12/01/24 12/02/24
06:59 06:59 06:59
Actual Weight 74.208 kg 75.1 kg
11/30/24 04:27
11/30/24 15:18
PT 20.7 Sec (11.4-14.6) H 11/25/24 04:48
INR 1.72 11/25/24 04:48
Magnesium 2.0 mg/dl (1.6-2.3) 11/28/24 05:31
11/24/24 11/28/24
03:54 05:31
Lmf-N-Xqvsoivhfnl Pept 7590 [id number]
Physical Exam
Constitutional: No acute distress
Cardiovascular: Rhythm/rate is irregular
Respiratory: Wheeze Absent and Rhonchi Absent
GI: Non tender
Neuro/Psych: Alert and Oriented
Data Reviewed
-
Date of Service: December 01, 2024
Medical Decision Making: Reviewed Test Results
Labs: Labs Reviewed by me
[2024-12-01 13:06] LABS: NT-proBNP 14600 pg/ml
--- NOTE | 2024-12-01 13:46 | CM ---
Reviewed the chart notes. Patient for potential discharge . CM continues to be available to patient/family and is monitoring medical plan for needs at discharge.
Plan: Discharge to [facility] when medically stable and auth obtained.
--- NOTE | 2024-12-01 15:12 | W.PN.HOSP.TC ---
Today's Communication/Plan
-
Transition to oral Lasix.
Echocardiogram
Discharge planing back to rehab
Assessment / Plan
Assessment / Plan
84yo M with PMHC of Afib, HTN, HLD, BPH, GERD, CAD, Hx of CVA, prostate CA undergoing RT came with cough, hypoxia from rehab, found COVID-19 pneumonia complicated by Afib with RVR
A/P:
#COVID-19 pneumonia with acute hypoxic respiratory failure
#Leukopenia 2/2 viral disease
#R basilar opacity, concern for pneumonia
ESR elevated
Procalcitonin within normal limits
Remdesivir till 11/28/24 and follow LFT
Completed Decadron on 11/29
Zinc and vit E supplements
Completed course of ceftriaxone doxycycline on 11/29
#Afib, unspecified with RVR
#CAD stable
Rate control off amiodarone back to Cardizem/metoprolol
telemetry
Eliquis to cont. Dose adjusted to renal function
#B/L LE edema
US neg for DVT
#CHF, unspecified
Acute hypoxic respiratory insufficiency secondary to decompensated CHF. Currently weaned off O2 supplementation as of 11/28
Lasix, follow weight, Cr and electrolytes
Cardiology consult: defer Echo, cont diuresis
CT with anasarca - cont Lasix, follow Cr
#ROMA suspect cardiorenal state
most likely 2/2 fluid overload
follow Cr
#Anemia most likely 2/2 prostate CA (anemia of chronic disease) and MARIE
hold iron with acute infection
check FOBT
follow CBC
#Elevated alk.phos 2/2 prostate CA
no RUQ pain
follow LFT
#Essential HTN
#CAD, stable
#GERD
#HLD
cont home meds
DVt ppx Eliquis
DNR/DNI
Anticipated Discharge: Within 24 hours
Subjective/Interval History
-
Date of Service: December 01, 2024
Objective Data
-
Vital Signs:
Vital Signs
Temp Pulse Resp BP Pulse Ox
97.5 F 97 20 127/72 95
12/01/24 11:40 12/01/24 11:40 12/01/24 11:40 12/01/24 11:40 12/01/24 11:40
I&O
11/30/24 12/01/24 12/02/24
06:59 06:59 06:59
Intake Total 2039 / 2039 660 / 660
Output Total 2975 / 2975 3400 / 3400
Balance -935 / -935 -2740 / -2740
Physical Exam
-
General: No Apparent Distress
HEENT: Normocephalic
Respiratory: Clear to Auscultation
Cardiac: Regular Rhythm
GI: Soft, Nontender and Distended
Genito-urinary: Other (swallen scrotum)
Skin: Warm
Neuro: Awake, Alert, Oriented and AO x 3
Psych: Calm
--- NOTE | 2024-12-01 16:24 | CM ---
Reviewed the chart notes and spoke with the patient and spouse at the bedside. IMM reviewed. Discussed transportation options with the spouse. Private vehicle or wheelchair van at cost. She will think about transportation. CM continues to be
available to patient/family and is monitoring medical plan for needs at discharge.
Plan: Discharge to [facility] SNF when medically stable. Precert is required.
[2024-12-01] MEDS: LIPITOR 40 MG PO (17:50)
[2024-12-02 03:42] VITALS: BP 120/66
[2024-12-02 06:00] VITALS: BMI 25.4
[2024-12-02 07:12] VITALS: BP 118/77
[2024-12-02] MEDS: CARDIZEM CD 360 MG PO (08:53)
[2024-12-02] MEDS: ZINC 50 MG PO (08:54)
[2024-12-02] MEDS: PROTONIX 40 MG PO (08:54)
[2024-12-02] MEDS: FLOMAX 0.4 MG PO (08:54)
[2024-12-02] MEDS: VITAMIN E 200 UNITS PO (08:54)
[2024-12-02] MEDS: DESENEX/MITRAZOL/ZEASORB 1 APPLIC TOPICAL (08:54)
[2024-12-02] MEDS: LASIX 20 MG PO (08:54)
[2024-12-02] MEDS: ELIQUIS 5 MG PO (08:55)
[2024-12-02] MEDS: KCL 40 MEQ PO (08:55)
[2024-12-02] MEDS: LOPRESSOR 150 MG PO (08:55)
[2024-12-02] MEDS: LIDOCAINE 4% PATCH TOPICAL (09:03)
[2024-12-02 11:09] VITALS: BP 134/84
--- NOTE | 2024-12-02 11:53 | CM ---
Reviewed the chart notes. CM spoke with [facility] Roge. Per Roge, willing to accept the patient today. Auth received for [facility] (12/02-12/06); # [id number]; NRD 12/06 to [phone].
Plan: Discharge to [facility]. Spouse will provide transportation
Call report to: [phone]
Fax report to: [phone]
--- NOTE | 2024-12-02 11:59 | W.DS.TRANS ---
DC Summary - [facility]
-
Discharge Instructions:
Discharge Diagnosis/Procedures Acute CHF
Covid 19
Diet 2 Gram Sodium
Blood Work BMP in one week
Instructions:
Stand-Alone Forms:
Changes to Home Medications: Yes
Discharge Medications:
DC Medications w/original date entered in [facility]
apixaban 5 mg tablet (Eliquis) 5 mg PO BID 11/24/24
atorvastatin 40 mg tablet 40 mg PO DAILY 11/24/24
fluticasone propionate 50 mcg/actuation nasal spray,suspension 2 spray intranasal DAILY 11/24/24
ipratropium 0.5 mg-albuterol 3 mg (2.5 mg base)/3 mL nebulization soln ml inhalation 11/24/24
metoprolol tartrate 50 mg tablet 150 mg PO BID 11/24/24
pantoprazole 40 mg tablet,delayed release 40 mg PO BID 11/24/24
tamsulosin 0.4 mg capsule 0.4 mg PO DAILY 11/24/24
atorvastatin 40 mg tablet 40 mg PO QPM #30 tabs 12/02/24
diltiazem HCl 180 mg capsule,extended release 24 hr 360 mg (2 x 180 mg) PO DAILY #30 caps 12/02/24
furosemide 20 mg tablet 20 mg PO DAILY #30 tabs 12/02/24
lidocaine 4 % topical patch 1 patch topical DAILY #10 ea 12/02/24
potassium chloride 20 mEq tablet,extended release(part/cryst) 40 meq (2 x 20 mEq) PO DAILY #30 tabs 12/02/24
Home Medication Changes
Lasix with potassium supplement.
Cardizem dose increased
Pending Results: No
[2024-12-02 14:40] VITALS: BP 107/66
== END 2024-12-02 15:19 | DRG 177 ==
LOC: 2 NORTH 06:03
PROVIDERS: Internal Medicine; Registered Nurse; Student in an Organized Health Care Education/Training Program; ADMITTING PHYSICIAN Internal Medicine; ATTENDING PHYSICIAN Internal Medicine; EMERGENCY PHYSICIAN Emergency Medicine; OTHER PHYSICIAN Internal Medicine
PROC: XW033E5 Introduction of Remdesivir Anti-infective into Peripheral Vein, Percutaneous Approach, New Technology Group 5 (ICD-10-PCS; 2024-11-24)
DX: U07.1 COVID-19 (principal); I50.33 Acute on chronic diastolic (congestive) heart failure; J96.01 Acute respiratory failure with hypoxia; J12.82 Pneumonia due to coronavirus disease 2019; I13.0 Hypertensive heart and chronic kidney disease with heart failure and stage 1 through stage 4 chronic kidney disease, or unspecified chronic kidney disease; I48.21 Permanent atrial fibrillation; J98.11 Atelectasis; D84.9 Immunodeficiency, unspecified; N17.9 Acute kidney failure, unspecified; C67.9 Malignant neoplasm of bladder, unspecified; D63.8 Anemia in other chronic diseases classified elsewhere; N18.9 Chronic kidney disease, unspecified; R29.6 Repeated falls; E78.00 Pure hypercholesterolemia, unspecified; I25.10 Atherosclerotic heart disease of native coronary artery without angina pectoris; K21.9 Gastro-esophageal reflux disease without esophagitis; N40.0 Benign prostatic hyperplasia without lower urinary tract symptoms; E87.6 Hypokalemia; I45.10 Unspecified right bundle-branch block; Y95 Nosocomial condition; Z66 Do not resuscitate; Z60.3 Acculturation difficulty; Z86.73 Personal history of transient ischemic attack (TIA), and cerebral infarction without residual deficits; Z85.46 Personal history of malignant neoplasm of prostate; Z92.21 Personal history of antineoplastic chemotherapy; Z79.01 Long term (current) use of anticoagulants
CPT/HCPCS: 71045; 74176; 80048; 80053; 81003; 81015; 82248; 82607; 82728; 82746; 83540; 83550; 83735; 83880; 84145; 84484; 85025; 85610; 85652; 86850; 86900; 86901; 87086; 87502; 87811; 93005; 93306; 93970; 94640; 96360; 97116; 97163; 97167; 97530; 97535; 99285; J0248

== ENCOUNTER 2024-12-07 23:51 | Inpatient (IN) | payer OTHER, SELFPAY ==
[2024-12-07 21:04] VITALS: BP 142/94
[2024-12-07 21:05] VITALS: BP 142/94
--- NOTE | 2024-12-07 21:10 | ED.GENMED ---
History of Present Illness
General
Chief Complaint: Breathing Problem
Source: patient, records, ambulance crew and previous hospital records
Exam Limitations: clinical condition
Time Seen by Provider: 12/07/24 21:07
Nursing documentation reviewed up to this point in time: agreed with
History of Present Illness
History of Present Illness:
84-year-old male from local [facility] presents with cough and shortness of breath staff found him with a pulse ox in the mid 60s given a DuoNeb placed on a few liters of oxygen EMS found him with a sat in the mid 80s, placed on a nonrebreather
given some Zofran for vomiting,
Prior records briefly reviewed, admitted recently with COVID-pneumonia rapid A-fib treated with some antibiotics, supportive therapies, diuretics, discharged a few days ago not on any oxygen does take blood thinner, had venous Dopplers of his
bilateral lower extremities which are negative for clot
Past History
Past History
ED Past Medical History: Arrthythmia (Chronic atrial fibrillation), CAD, Cancer (Prostate cancer, bladder cancer), CHF, CVA (History of a TIA), GERD, HTN, Hypercholesterolemia, Renal failure ( chronic renal insufficiency) and Other (Influenza
October 2024); Negative Asthma or COPD
ED Past Surgical History: Urological
Social History
Tobacco: Non-smoker
Alcohol: None
Drug: None
Living: [facility] (Currently residing in a [facility] for inpatient physical therapy)
Employment: Retired
Family History
Family History: Other (Noncontributory)
Review of Systems
Review of Systems
Other source history: ambulance crew
All Other Systems: Not applicable
Respiratory: Reports cough and trouble breathing
Phy Exam
Physical Exam
Physical Exam:
Physical Exam
General: 84-year-old male moderate respiratory distress, following simple command
Neck: No jaundice
Heart: Tachycardia
Lungs: Rhonchi bilaterally
Abdomen: Not not
Neuro: alert and oriented. no focal neurological deficits
Skin: no rash
Psychiatric: cooperative
Extremities: Edema left greater than right
Scores
Heart Failure Risk
Heart Failure Risk Score: Yes
History of Stroke or TIA: No
History of intubation for respiratory distress: Yes
Heart rate on ED arrival >/= 110: Yes
SaO2 <90% on arrival on room air: Yes
HR >/=110 during 3min walk test (or too ill to perform test): Yes
ECG has acute ischemic changes: No
Urea >/=12mmol/L (BUN 33.6mg/dL): No
Serum CO2>/=35mmol/L: No
Troponin I or T elevated to NE Level (0.4mg/dL): No
NT-proBNP >/=5,000ng/L (5,000pg/ml): Yes
HF Risk Score: 6
Admission Status: VERY HIGH RISK 55.3% Consider admission to hospital
Course
Orders/Labs/Results
Orders:
Orders
12/07/24 21:07
Cardiac Monitoring- Treatment ONCE
IV Insert/Care/Rem.- Treatment PRN
O2 Therapy [RESP] Stat
Titrate/Wean O2 to maintain O2 sat greater than (%): 95
12/07/24 21:08
Electrocardiogram (*1) Stat
Reason for Study: Other
Other Reason for Exam: chest pain
EKG- Treatment ONCE
Ipratropium/Albuterol Sulfate [Duoneb] 3 ml INH R NOW STA
CR Chest Portable - 1 View Urgent
Comment:
Reason For Exam: sob
Reason Study Needs to be Portable: Unable to Transport
12/07/24 21:15
Comprehensive Metabolic Panel Urgent
Magnesium Urgent
TSH Urgent
Blood Culture Q30M
NINO Source: Blood/Venous
Specimen Description:
Blood Culture Q30M
NINO Source: Blood/Venous
Specimen Description:
12/07/24 21:16
ABG [Arterial Blood Gas] Urgent
%Oxygen/Room Air: 6
Complete Blood Count/With Diff Urgent
NT-proBNP Urgent
Procalcitonin Urgent
PCT Algorithmm Indication: Respiratory
Troponin I Urgent
12/07/24 21:20
COVID-19 Antigen Urgent
Source: Nasal Swab
Influenza A+B Rapid Molecular Urgent
NINO Source: Nasal Swab
Specimen Description:
12/07/24 22:01
Furosemide [Lasix] 40 mg IV NOW STA
Ipratropium/Albuterol Sulfate [Duoneb] 3 ml INH R NOW STA
12/07/24 22:02
Magnesium Sulfate 1 G/D5w [Magnesium Sulfate] 1 gm in 100 ml IV NOW
12/07/24 22:03
Acetaminophen 1000MG/100Ml [Ofirmev] 1,000 mg in 100 ml IV ONCE
Acetaminophen IV Indication:: No NH & No Enteral Access
12/07/24 22:15
Diltiazem 125 mg/125 ml Nss [Cardizem] 125 mg in 125 ml IV PER PROTOCOL
Initial dose in mg/hr, then titrate:: 5
Titrate to keep:: Heart rate 80-100 bpm
Titrate by mg/hr:: 5 mg/hr
Frequency of titrations (minutes):: 15
Maximum dose in mg/hr:: 15
Abnormal Lab Results
12/07/24 12/07/24
21:15 21:16
WBC 4.5 L 10^3/uL
(4.8-10.8)
RBC 4.41 L 10^6/uL
(4.70-6.10)
Hgb 11.1 L g/dL
(13.0-18.0)
Hct 37.6 L %
(39.0-52.0)
MCH 25.2 L pg
(27.0-31.0)
MCHC 29.5 L g/dL
(33.0-37.0)
RDW 18.6 H %
(11.5-14.5)
MPV 10.9 H fL
(7.4-10.4)
Absolute Lymphs (auto) 0.5 L 10^3/uL
(1.2-3.4)
Immature Gran % 0.7 H %
(0-0.5)
Neutrophils % 85.4 H %
(42.2-75.2)
Lymphocytes % 10.6 L %
(20.5-51.1)
pO2 61 L mmHg
(83-108)
ABG O2 Sat (Measured) 92.1 L %
(94-98)
Potassium 5.2 H mmol/L
(3.5-5.1)
BUN 40 H mg/dl
(9-20)
Glucose 174 H mg/dl
(70-99)
Magnesium 1.5 L mg/dl
(1.6-2.3)
ALT 71 H U/L
(0-50)
Alkaline Phosphatase 225 H U/L
(38-126)
Total Protein 6.2 L g/dl
(6.3-8.2)
12/07/24 21:16
12/07/24 21:15
Vital Signs
Initial and Last Documented VS:
Initial Vital Signs
Temp Pulse Resp BP Pulse Ox
100.2 F 104 30 142/94 86
12/07/24 21:04 12/07/24 21:04 12/07/24 21:04 12/07/24 21:04 12/07/24 21:04
Last Documented Vital Signs
Temp Pulse Resp BP Pulse Ox
100.2 F 108 22 102/89 91
12/07/24 21:04 12/07/24 21:33 12/07/24 21:33 12/07/24 21:33 12/07/24 21:33
MDM/Problems Addressed
Differential Diagnosis Includes:
Pneumonia bronchitis aspiration COPD CHF PE pneumothorax
MDM/Problems Addressed:
Shortness of breath
Chronic conditions affecting care: HTN and Arrhythmia
Acute Exacerbation and/or Progression of Chronic Illness: HTN and Arrhythmia
*Radiology
Radiology exam reviewed: preliminary read by ED provider
*Pulse Oximetry
Patient hypoxic: yes
*EKG
Interpreted by ED Provider?: Yes
Interpretation: abnormal
Comparison EKG: changes noted
Heart Rate: 128
Rate: tachycardiac
Rhythm: a-fib
Ischemia: non-specific ST changes
*[employer] Interpretation
Rate: tachycardiac
Interpretation: abnormal
Heart Rate: 118
Rhythm: a-fib
*Critical Care Note
Total Time (30-74mins, 75-104mins- exclusive of procedures): 33
Data Reviewed
Review of Other/Old Records Reveals: Labs, Records, Testing, Progress Notes and Discharge Summary
Source: patient and ambulance crew
Prescriptions/Medications Considered But Not Given:
Steroids
Further Testing Considered But Not Given:
CT of the chest
Patient Management
Social determinants of health affecting care: Living situation
Discussion with other providers: Hospitalist
Update Note
Update Note:
10:04 PM
Update chest x-ray noted proBNP noted, will try some diuretic for nebs rate control with Cardizem procalcitonin is pending
CRITICAL CARE STATEMENT: A total of 32 minutes of critical care time was provided for this patient. This includes management of unstable vital signs, evaluation of the patient at bedside, reviewing the patient's pertinent medical records discussion
with EMS providers and patient's family in addition to discussion with consultants, review of old EKGs and review of pertinent medical records. This time with separate from time utilized to perform the aforementioned documented procedures
ED Attending Note
-
Portions of this chart may have been created with voice recognition software.� Occasional wrong word or��sound alike� substitutions may have occurred due to the inherent limitations of voice recognition software.
Discharge Plan
Departure
Patient Disposition: Admit
Date of Disposition: 12/07/24
Time of Disposition: 22:05
Admit to: ICU
Presentation/result/management discussed w/ accepting MD/DO: Hospitalist
Patient with high blood pressure during this ER visit?: No
Condition: Fair
Discharge Problem:
Acute hypoxemic respiratory failure, Atrial fibrillation with RVR, Hypertensive heart disease with heart failure
Prescriptions:
No Action
atorvastatin 40 mg tablet
40 mg PO DAILY
ipratropium-albuterol 0.5 mg-3 mg(2.5 mg base)/3 mL solution for nebulization
INHALATION
tamsulosin 0.4 mg capsule
0.4 mg PO DAILY
pantoprazole 40 mg tablet,delayed release (DR/EC)
40 mg PO BID
metoprolol tartrate 50 mg tablet
150 mg PO BID
fluticasone propionate 50 mcg/actuation spray,suspension
2 spray INTRANASAL DAILY
Eliquis 5 mg tablet
5 mg PO BID
diltiazem HCl 180 mg Capsule,Extended Release 24hr
360 mg PO DAILY Qty: 30 0RF
lidocaine 4 % Adhesive Patch,Medicated
1 patch topical DAILY Qty: 10 0RF
potassium chloride 20 mEq Tablet,Er Particles/Crystals
40 meq PO DAILY Qty: 30 0RF
furosemide 20 mg Tablet
20 mg PO DAILY Qty: 30 0RF
atorvastatin 40 mg Tablet
40 mg PO QPM Qty: 30 0RF
Referrals:
UNKNOWN - PT DOES,NOT KNOW [Family Provider] -
Interventions
Interventions:
*Risk Screen - Suicide Last Done: 12/07/24 21:04
*General Assessment Last Done: 12/07/24 21:04
*Neglect/Abuse Screening Last Done: 12/07/24 21:04
*ED- Fall Risk Assessment Last Done: 12/07/24 21:04
ED- Cardiac Assessment Last Done: 12/07/24 21:36
ED- Pulmonary Assessment Last Done: 12/07/24 21:36
Discharge Date and Time
Print Language: KOREAN
[2024-12-07 21:25] LABS: B.E. 0.5 mmol/L; HCO3 24.5 mmol/L (21-28); O2 Saturation % 92.1 % (94-98); PCO2 36 mmHg (35-48); PO2 61 mmHg (83-108); pH 7.44 (7.35-7.45)
[2024-12-07 21:27] LABS: % Immature Granulocytes 0.7 % (0-0.5); % Lymphocytes 10.6 % (20.5-51.1); % Monocytes 3.3 % (1.7-9.3); % Neutrophils 85.4 % (42.2-75.2); Absolute Lymphocytes 0.5 10^3/uL (1.2-3.4); Absolute Monocytes 0.2 10^3/uL (0.1-0.6); Absolute Neutrophils 3.9 10^3/uL (1.4-6.5); Hematocrit 37.6 % (39.0-52.0); Hemoglobin 11.1 g/dL (13.0-18.0); Mean Corp Hgb Conc. 29.5 g/dL (33.0-37.0); Mean Corpuscular Hgb 25.2 pg (27.0-31.0); Mean Corpuscular Volume 85.3 fL (80.0-94.0); Mean Platelet Volume 10.9 fL (7.4-10.4); Nucleated Red Blood Cells % 0 % (-); Platelet Count 178 10^3/uL (130-400); Red Blood Cell Count 4.41 10^6/uL (4.70-6.10); Red Cell Dist. Width 18.6 % (11.5-14.5); White Blood Cell Count 4.5 10^3/uL (4.8-10.8)
[2024-12-07] MEDS: DUONEB 3 ML INH ×2 (21:29→22:28)
[2024-12-07 21:33] VITALS: BP 102/89
[2024-12-07 21:47] LABS: ALT (SGPT) 71 U/L (0-50); AST (SGOT) 38 U/L (17-59); Albumin 3.5 g/dl (3.5-5.0); Alkaline Phosphatase 225 U/L (38-126); Blood Urea Nitrogen 40 mg/dl (9-20); Calcium 8.4 mg/dl (8.4-10.2); Carbon Dioxide 26 mmol/L (22-30); Chloride 103 mmol/L (98-107); Estimated Creatinine Clearance 36 ml/min; Glucose 174 mg/dl (70-99); Magnesium 1.5 mg/dl (1.6-2.3); Potassium 5.2 mmol/L (3.5-5.1); Sodium 140 mmol/L (135-145); Total Bilirubin 1.2 mg/dl (0.2-1.3); Total Protein 6.2 g/dl (6.3-8.2); eGFR 54.51
[2024-12-07 21:49] LABS: COVID-19 Antigen Negative (Negative)
[2024-12-07 21:51] LABS: NT-proBNP 23600 pg/ml; Troponin I < 0.012 ng/ml
[2024-12-07 21:58] LABS: Procalcitonin < 0.05 ng/ml (0.0-0.25)
[2024-12-07 22:00] VITALS: BP 115/68
--- NOTE | 2024-12-07 22:16 | HPS.HSE ---
Family Physician
-
Family Physician: NOT KNOW UNKNOWN - PT DOES
Chief Complaint
-
hypoxia
History of Present Illness
Patient is a 84-year-old male with past medical history significant for permanent atrial fibrillation, HF, CAD, GERD, hypercholesterolemia, CKD, prostate cancer, bladder cancer and Hx TIA who presented to [facility] ED for evaluation of
hypoxia. Patient arrived via EMS from [facility] where he has been for rehab, at bedside stated patient yesterday was doing well and conversations for discharge home where happening. Today when she visited she stated patient had
significantly increased weakness, cough, decreased appetite and multiple episodes of emesis throughout the day. Facility staff states patient was found with cough and shortness of breath and found to be hypoxic into the 60s. Patient placed on NRB
and given DuoNeb prior to EMS arrival. EMS stated patient found to be hypoxic in 80s despite supplemental oxygen. Patient with recent hospitalization for acute hypoxic respiratory insufficiency likely 2/2 acute HFpEF and pulmonary edema.
Medical History
Past Medical History
Past Medical History: Reports Other
Additional Past Medical History:
permanent atrial fibrillation
HFpEF
CAD
GERD
hypercholesterolemia
CKD
prostate cancer
bladder cancer
Hx TIA
Past Surgical History: Reports Urological
Social History
Tobacco: Non-smoker
Alcohol: None
Personal: Single
Living: [facility] (Recently from rehab was living at home)
Employment: Retired
Family History
Family History: Not pertinent
Allergies / Home Medications
Allergies reflects when Allergies were last updated in [employer].
Home Medications with original date entered in [employer]
Allergy/Medication List:
Allergies
Allergy/AdvReac Type Severity Reaction Status Date / Time
No Known Allergies Allergy Unverified 11/24/24 04:25
Home Medications
apixaban 5 mg tablet (Eliquis) 5 mg PO BID 11/24/24
fluticasone propionate 50 mcg/actuation nasal spray,suspension 2 spray intranasal DAILY 11/24/24
ipratropium 0.5 mg-albuterol 3 mg (2.5 mg base)/3 mL nebulization soln 3 ml inhalation R Q4HPRN PRN sob 11/24/24
metoprolol tartrate 50 mg tablet 150 mg PO BID 11/24/24
pantoprazole 40 mg tablet,delayed release 40 mg PO BID 11/24/24
tamsulosin 0.4 mg capsule 0.4 mg PO DAILY 11/24/24
atorvastatin 40 mg tablet 40 mg PO QPM #30 tabs 12/02/24
furosemide 20 mg tablet 20 mg PO DAILY #30 tabs 12/02/24
potassium chloride 20 mEq tablet,extended release(part/cryst) 40 meq (2 x 20 mEq) PO DAILY #30 tabs 12/02/24
acetaminophen 325 mg tablet 650 mg PO Q6HPRN PRN mild pain 12/07/24
bisacodyl 10 mg rectal suppository 10 mg ID DAILYPRN PRN if no result from mom 12/07/24
diltiazem HCl 360 mg tablet,extended release 24 hr (Cardizem LA) 360 mg PO DAILY 12/07/24
magnesium hydroxide 400 mg/5 mL oral suspension (Milk of Magnesia) 30 ml PO [id number] PRN no bm x3 days 12/07/24
Review of Systems
-
History Source: Patient
Constitutional: Reports Fatigue
EENT: Reports No Symptoms
Respiratory: Reports Cough and Trouble Breathing
Cardiac: Reports No Symptoms
Abdomen/GI: Reports Nausea and Vomiting
: Reports No Symptoms
Musculoskeletal: Reports No Symptoms
Skin: Reports No Symptoms
Neurological: Reports Weakness
Endocrine: Reports No Symptoms
Hematologic/Lymphatic: Reports No Symptoms
Psych: Reports No Symptoms
Physical Exam
Vital Signs
Vital Signs
Temp Pulse Resp BP Pulse Ox
100.2 F 108 22 102/89 91
12/07/24 21:04 12/07/24 21:33 12/07/24 21:33 12/07/24 21:33 12/07/24 21:33
Physical Exam
General: Well Developed, Well Nourished, Respiratory Distress and Appears in Distress
HEENT: NormoCephalic
Respiratory: Rhonchi
Cardiac: S1/S2, Irregular Rhythm and Tachycardia
GI: Soft, Non Tender, Non Distended and Normal Bowel Sounds
Rectal: Deferred by Provider
Genito-urinary: Deferred by me
Musculoskeletal: No Clubbing, No Cyanosis, Edema, Left Lower Extremity and Edema, Right Lower Extremity
Skin: No Rash
Neuro: Awake, Alert and Nonfocal/grossly intact
Psych: Calm and Intact Judgment/Insight
Laboratory Results
-
12/07/24 21:16
12/07/24 21:15
Laboratory Results
pH 7.44 (7.35-7.45) 12/07/24 21:16
pCO2 36 mmHg (35-48) 12/07/24 21:16
pO2 61 mmHg (83-108) L 12/07/24 21:16
HCO3 24.5 mmol/L (21-28) 12/07/24 21:16
Total Bilirubin 1.2 mg/dl (0.2-1.3) 12/07/24 21:15
AST 38 U/L (17-59) 12/07/24 21:15
ALT 71 U/L (0-50) H 12/07/24 21:15
Alkaline Phosphatase 225 U/L (38-126) H 12/07/24 21:15
Troponin I < 0.012 ng/ml 12/07/24 21:16
Data Reviewed
-
Medical Tests (Nuc Med, Echo, EKG etc): Report Reviewed by me (EKG: ATRIAL FIBRILLATION WITH RAPID VENTRICULAR RESPONSE RIGHT BUNDLE BRANCH BLOCK T WAVE ABNORMALITY, CONSIDER INFEROLATERAL ISCHEMIA)
Lab Data: Labs Reviewed by me
Impression/Plan
-
IMPRESSION/PLAN:
#acute respiratory insufficiency likely 2/2 acute on chronic HFpEF
#HFpEF
BNP 84752
ECHO (12/01/2024): Normal left ventricular systolic function.
Left ventricular ejection fraction is 55-60% .
LVH
Mild to moderate mitral regurgitation.
Mild to moderate tricuspid regurgitation.
Small pericardial effusion.
No prior study available for comparison.
- Admit to IMU
- Consult Cardiology
- IV Lasix
- daily weights
- I & Os
#permanent atrial fibrillation
EKG: ATRIAL FIBRILLATION WITH RAPID VENTRICULAR RESPONSE
RIGHT BUNDLE BRANCH BLOCK
T WAVE ABNORMALITY, CONSIDER INFEROLATERAL ISCHEMIA
- continue diltiazem, Eliquis, metoprolol
#anemia
hgb 11.1, hct 37.6 (improving)
likely 2/2 prostate cancer
- monitor CBC
#elevated alk phos
Alk phos 225
likely 2/2 prostate cancer
- monitor LFTs
#GERD
- continue pantoprazole
#CAD
#hypercholesterolemia
- continue atorvastatin
#CKD
BUN 40, Creat 1.3
- monitor BMP
#prostate cancer
#bladder cancer
s/p radiation and chemo completed in September 2024
follow out patient
#Hx TIA
Code Status: DNR
DVt prophylaxis: Eliquis
[2024-12-07 22:18] LABS: TSH 2.56 uIU/ml (0.47-4.68)
[2024-12-07] MEDS: OFIRMEV 100 IV (22:28)
[2024-12-07] MEDS: MAGNESIUM SULFATE 100 IV (22:33)
[2024-12-07] MEDS: LASIX 40 MG IV (22:33)
[2024-12-07 23:00] VITALS: BP 95/52
--- NOTE | 2024-12-07 23:40 | W.PN.UPDATE ---
Update Note
Progress Note Update
This note serves as an addendum to the H&P by meat products demonstrator VIKASH
Rena Murdock
HPI
84M[facility] [place] speaker HX complex HX chr HFpEF, perm AF, chr Eliquis, CKD, hypertension, hyperlipidemia, prostate cancer, CVA, recent diagnosis of bladder cancer status post chemotherapy as well as XRT and general of dysuria
- cough and shortness of breath staff found him with a pulse ox in the mid 60s given a DuoNeb placed on a few liters of oxygen
- EMS found him with a sat in the mid 80s, placed on a nonrebreather given some Zofran for vomiting,
- HX recent COVID-PNA treated with ABx supportive therapies, diureticcs
- he was discharged a few days ago not on O2
PHX; see above
Vital Signs
Temp Pulse Resp BP Pulse Ox
100.2 F 95 21 95/52 94
12/07/24 21:04 12/07/24 23:15 12/07/24 23:15 12/07/24 23:00 12/07/24 23:26
PE
Gen: Not toxic , conversant , omar NRM
HEENT : anicteric
Neck: supple
Lungs: tachycardia. Rhonchi bilaterally
Cor: irregular
Abdomen: soft , benign
AIRLINE HOSTESS: language barrier
MS: b/l Jose edema left greater than right
Psych: [place] Islander speaker
Data
Selected Entries
12/07/24
21:04
Temp 100.2 F
Pulse 104
Resp Rate 30
Blood pressure 142/94
SaO2 86
Oxygen Mode of Delivery High Flow Nasal
Cannula
Nasal Cannula flow liters per minute 6
Laboratory Tests
11/30/24 11/30/24 12/01/24
04:27 15:18 12:30
WBC 4.1 L
Hgb 9.3 L
Plt Count
pH
pCO2
pO2
Potassium
BUN
Creatinine
eGFR 54.51
Glucose
Magnesium
ALT
Alkaline Phosphatase
Troponin I
Hlv-H-Iegecsmiwtu Pept 50433
Procalcitonin
TSH
SARS-CoV-2 Antigen
12/07/24 12/07/24 12/07/24
21:15 21:16 21:20
WBC 4.5 L
Hgb 11.1 L
Plt Count 178
pH 7.44
pCO2 36
pO2 61 L
Potassium 5.2 H
BUN 40 H
Creatinine 1.3
eGFR 54.51
Glucose 174 H
Magnesium 1.5 L
ALT 71 H
Alkaline Phosphatase 225 H
Troponin I < 0.012
Gry-Z-Dvmffsipclg Pept 15672
Procalcitonin < 0.05
TSH 2.56
SARS-CoV-2 Antigen Negative
TTE
Normal left ventricular systolic function.
Left ventricular ejection fraction is 55-60% . LVH
Mild to moderate mitral regurgitation.
Mild to moderate tricuspid regurgitation.
Small pericardial effusion.
No prior study available for comparison.
Last hospitalist admission: 11/24/2024 - 12/02/2024
DISCHARGE DIAGNOSES:
1. Acute congestive heart failure, preserved ejection fraction.
2. Chronic atrial fibrillation.
3. COVID-19 infection of unknown clinical significance.
4. Anemia of chronic disease.
5. Cute kidney injury secondary to cardiorenal state.
6. Essential hypertension.
ASSESSMENT & PLAN
Acute ob Chr HFpEF
Acute hypoxic RF
Weight: Only 0,5 kg down 75,2 kg today 75. 795 kg on 12/02
BLE edema
Significantly higher pro BNP 7590
- IV Lasix 40 BID
- To consider GDMT
- c/w NRM
- CBC card consult
Perm AF : Amiodarone was topped on last admission
- on metoprolol 150 mg PO BID and diltiazem to 360mg daily
- Eliquis back to 5 BID
HX CAD per chart: details unknown
- no CP
- on Eliquis/statin
Benign HTN:
-well-controlled for age
-continue home Meds
Anemia - Normocytic anemia
Suspect ACD.
No signs of acute bleed. Recent transfusion
- transfuse Goal' for Hgb < 7
BPH
- cont. tamsulosin
DVT Px: Eliquis
DNR
IMU
[2024-12-08] VITALS (32 sets, daily range): BP systolic 83–136; BP diastolic 51–87; PULSE 106–133; O2SAT 97–98; BMI 28.1
--- NOTE | 2024-12-08 01:00 | PTCARENOTE ---
Pt arrived to floor via stretcher from the ED. Pt AAOx3, Pt is [place] Speaking but able to understand and speak broken St Helenian. HR in the low 100's in AFib on the monitor. RT at bedside place pt on Hi flow NC, 50L/75%, POX 95% at this time. Lung
dec on right, dec at B/L base with scattered ex wheezes, crackles, course t/o. Harsh junky non productive cough. + bowel, round abd. Pt inc of urine. #35CC applied to help with accurate I/O. +2 pitting B/L LE edema noted. Brown PVD legs. Heels
elevated on pillows. Sacral foam applied to sacrum for area of redness/ stage 1. Pt turned with pillow. VAT RN at bedside to access right SQ port. Left AC int capped. Carlota CNRP updated on pt and new orders obtained. Call fernandez in reach. Bed alarm
in place. Will continue to monitor.
--- NOTE | 2024-12-08 01:45 | W.PN.UPDATE ---
Update Note
Progress Note Update
Patient w/increased O2 requirements was on 6L NC, sat 91%.
-Pt placed on high jean-paul O2, 50L/75%, order placed for hi jean-paul O2. Pulsox 95-97% on hi jean-paul.
-Pt BP 83/51, MAP 62. Hx CHF, ordered Levophed gtt. BP improved @ 4am BP 102/65, HR 101. Levophed not started.
[2024-12-08 04:50] LABS: Blood Urea Nitrogen 43 mg/dl (9-20); Calcium 7.7 mg/dl (8.4-10.2); Carbon Dioxide 28 mmol/L (22-30); Chloride 103 mmol/L (98-107); Estimated Creatinine Clearance 36 ml/min; Glucose 155 mg/dl (70-99); Potassium 4.1 mmol/L (3.5-5.1); Sodium 139 mmol/L (135-145); eGFR 54.51
[2024-12-08 05:08] LABS: Hematocrit 29.6 % (39.0-52.0); Hemoglobin 8.9 g/dL (13.0-18.0); Mean Corp Hgb Conc. 30.1 g/dL (33.0-37.0); Mean Corpuscular Hgb 24.9 pg (27.0-31.0); Mean Corpuscular Volume 82.7 fL (80.0-94.0); Mean Platelet Volume 10.9 fL (7.4-10.4); Platelet Count 109 10^3/uL (130-400); Red Blood Cell Count 3.58 10^6/uL (4.70-6.10); Red Cell Dist. Width 18.6 % (11.5-14.5); White Blood Cell Count 3.3 10^3/uL (4.8-10.8)
--- NOTE | 2024-12-08 07:00 | PTCARENOTE ---
report received from nightshift RN. Pt resting in bed, AAOX3, can be forgetful at time and occasionally agitated with care. mexican speaking but understands and able to communicate in slovenian. A fib on telemetry heart rate in low 100s. pulses
palpable in all extremities. +2 pitting edema in lower extremities. pt on high flow nasal cannula 50L 75%, sat 98%. lung sounds coarse throughout. intermittent non productive cough. active bowel sounds. incontinent of urine, condom catheter in
place. pt updated on plan of care. see worklist for full nursing assessment and interventions.
--- NOTE | 2024-12-08 07:52 | W.PN.HOSP.TC ---
Addendum entered and electronically signed by Christen Sampson MD 12/08/24 13:55:
with report of prior vomiting, weakness and CXR results - will start IV antibiotics
Original Note:
Today's Communication/Plan
-
Diuresis
Patient did not require Levophed
with low BP overnight, I ordered 1/2 dose TACK CLEANER Metoprolol and holding Diltiazem. BP seems improved this morning, will resume more meds later this morning based on BP readings and will follow up Cardiology recommendations
Assessment / Plan
Assessment / Plan
Patient is a 84-year-old male with past medical history significant for permanent atrial fibrillation, HF, CAD, GERD, hypercholesterolemia, CKD, prostate cancer, bladder cancer and Hx TIA who presented to [facility] ED for evaluation of
hypoxia to60's following an episode of vomiting throughout the day. EMS stated patient found to be hypoxic in 80s despite supplemental oxygen. Patient with recent hospitalization for acute hypoxic respiratory insufficiency likely 2/2 acute HFpEF
and pulmonary edema, he was also covid +.
Overnight patient had increased oxygen requirements requiring high jean-paul and hypotension requiring levophed gtt.
ECHO (12/01/2024): Normal left ventricular systolic function.
Left ventricular ejection fraction is 55-60% .
LVH
Mild to moderate mitral regurgitation.
Mild to moderate tricuspid regurgitation.
Small pericardial effusion.
No prior study available for comparison.
Acute Hypoxic Respiratory FAilure
Heart Failure preserved Ejection Fraction, acute exacerbation
-Trop negative
-admitted to ICU
-IV Lasix 40 BID
-did not require Levophed overnight
-Cardiology consult
-strict I/O, daily weights
Permanent Atrial Fibrillation
-patient is on Metoprolol 150mg PO BID and Diltiazem 360mg PO QD
-for now will resume 1/2 dose Metoprolol, hold Diltiazem given low BP overnight
-continue TACK CLEANER Eliquis
Hx Coronary Artery Disease
-TACK CLEANER Eliquis/Statin
Essential HTN
-hold TACK CLEANER Dilt for now as above
HLD - TACK CLEANER Statin
Normocytic anemia
-Hg at baseline this morning, yest value likely outlier
GERD - TACK CLEANER Protonix
BPH - TACK CLEANER Flomax
DVT PPx TACK CLEANER Eliquis
DNR
51 minutes spent on patient care
Anticipated Discharge: > 48 hours
Subjective/Interval History
-
Date of Service: December 08, 2024
on high flow
feeling better than yesterday
urinated a lot
Objective Data
-
Labs:
Laboratory Results
12/07/24 12/07/24 12/08/24
21:15 21:16 03:59
WBC 4.5 L 3.3 L
Hgb 11.1 L 8.9 L
Hct 37.6 L 29.6 L
Plt Count 178 109 L D
HCO3 24.5
Sodium 140 139
Potassium 5.2 H 4.1
Chloride 103 103
Carbon Dioxide 26 28
BUN 40 H 43 H
Creatinine 1.3 1.3
Glucose 174 H 155 H
Calcium 8.4 7.7 L
Total Bilirubin 1.2
AST 38
ALT 71 H
Alkaline Phosphatase 225 H
12/08/24
06:00
WBC
Hgb
Hct
Plt Count
HCO3 Cancelled
Sodium
Potassium
Chloride
Carbon Dioxide
BUN
Creatinine
Glucose
Calcium
Total Bilirubin
AST
ALT
Alkaline Phosphatase
Vital Signs:
Vital Signs
Temp Pulse Resp BP Pulse Ox
100.0 F 103 14 119/70 99
12/08/24 04:18 12/08/24 07:15 12/08/24 07:15 12/08/24 07:00 12/08/24 07:15
I&O
12/07/24 12/08/24 12/09/24
06:59 06:59 06:59
Intake Total 120 / 120
Output Total 200 / 200
Balance -80 / -80
Review of Systems
-
History Source: Patient
All other systems: Reviewed and negative
Physical Exam
-
General: No Apparent Distress
HEENT: Normocephalic
Respiratory: Rales
Cardiac: Irregular Rhythm, JVD and Tachycardic
GI: Soft, Nontender and Distended
Musculoskeletal: Other (trace b/l edema )
Skin: Warm
Neuro: Awake, Alert, Oriented and AO x 3
Psych: Calm
Data Reviewed
-
Diagnostic Radiology: Report Reviewed by me
Labs: Labs Reviewed by me
[2024-12-08] MEDS: PROTONIX 40 MG PO ×2 (08:22→20:57)
[2024-12-08] MEDS: ELIQUIS 5 MG PO ×2 (08:22→20:57)
[2024-12-08] MEDS: KCL 40 MEQ PO (08:22)
[2024-12-08] MEDS: FLOMAX 0.4 MG PO (08:22)
[2024-12-08] MEDS: LASIX 40 MG IV ×2 (08:22→16:22)
--- NOTE | 2024-12-08 08:56 | CON.CAR ---
Consultation
Consultation Request
Date/Time Consultation Requested: 12/08/24 @ 00:57
Date/Time Consultation Performed: 12/08/24 @ 8:56
Requesting Provider: COLE Valdez
Performing Provider: Lokesh Thurston MD
Reason for Consultation: CHF
Medical History
-
Chief Complaint: Hypoxia
History of Present Illness:
Gennaro Whiteside is an 84-year-old man with HFpEF, permanent atrial fibrillation, hypertension, CAD (details unknown) and CKD who presents from rehab after recent admission with cough, emesis, and hypoxia. He was recently hospitalized at [place] [facility] for COVID-19 and acute on chronic HFpEF. He was discharged to rehab on 12/02/2024 on 20 mg Lasix p.o. daily. Things were reportedly going well there until yesterday when he developed weakness, cough, and emesis. He was found to be hypoxic
by the staff so EMS was called and he was taken to [facility] ER. In the ER, labs were notable for BNP 23K, troponin negative, creatinine 1.3, procal negative. CXR showed pulmonary edema and improving pleural effusions. ECG A-fib with
RVR. He was placed on supplemental oxygen and given a dose of 40 mg IV Lasix. Overnight his hypoxia worsened requiring high flow nasal cannula. He also had low-grade fever (Tmax 100.2) and an episode of hypotension for which norepinephrine was
ordered but never started.
This morning he reports feeling 'okay.' He is not very talkative but denies cardiac complaints. He is breathing comfortably on HFNC.
Past Medical History
Past Medical History: Arrhythmias, CAD (?), Cancer, CHF, CVA, HTN, Hypercholesterolemia and Other (as above)
Social History
Personal:
Living: With Family
Family History
Family History: Reviewed & Not Pertinent
Allergies / Home Medications
Allergy/AdvReac Type Severity Reaction Status Date / Time
No Known Allergies Allergy Unverified 11/24/24 04:25
�Medication �Instructions �Recorded �Confirmed �Type
apixaban 5 mg tablet (Eliquis) 5 mg PO BID 11/24/24 12/07/24 History
fluticasone propionate 50 2 spray intranasal DAILY 11/24/24 12/07/24 History
mcg/actuation nasal
spray,suspension
ipratropium 0.5 mg-albuterol 3 mg 3 ml inhalation R Q4HPRN PRN sob 11/24/24 12/07/24 History
(2.5 mg base)/3 mL nebulization
soln
metoprolol tartrate 50 mg tablet 150 mg PO BID 11/24/24 12/07/24 History
pantoprazole 40 mg tablet,delayed 40 mg PO BID 11/24/24 12/07/24 History
release
tamsulosin 0.4 mg capsule 0.4 mg PO DAILY 11/24/24 12/07/24 History
atorvastatin 40 mg tablet 40 mg PO QPM #30 tabs 12/02/24 12/07/24 Rx
furosemide 20 mg tablet 20 mg PO DAILY #30 tabs 12/02/24 12/07/24 Rx
potassium chloride 20 mEq 40 meq (2 x 20 mEq) PO DAILY #30 12/02/24 12/07/24 Rx
tablet,extended release(part/cryst) tabs
acetaminophen 325 mg tablet 650 mg PO Q6HPRN PRN mild pain 12/07/24 12/07/24 History
bisacodyl 10 mg rectal suppository 10 mg ID DAILYPRN PRN if no result 12/07/24 12/07/24 History
from mom
diltiazem HCl 360 mg 360 mg PO DAILY 12/07/24 12/07/24 History
tablet,extended release 24 hr
(Cardizem LA)
magnesium hydroxide 400 mg/5 mL 30 ml PO [id number] PRN no bm x3 days 12/07/24 12/07/24 History
oral suspension (Milk of Magnesia)
Review of Systems
-
Unable to obtain full review of systems at this time due to: Language Barrier
Physical Exam
Vital Signs
Temp Pulse Resp BP Pulse Ox
98.4 F 108 20 136/79 98
12/08/24 07:52 12/08/24 08:22 12/08/24 08:15 12/08/24 08:22 12/08/24 08:22
Lab Results
12/08/24 03:59
12/08/24 03:59
Troponin I < 0.012 ng/ml 12/07/24 21:16
Oym-K-Sfdnfyudydj Pept 63446 pg/ml 12/07/24 21:16
Physical Exam
General: Well Developed, Well Nourished and Comfortable
Respiratory: Crackles and Non Labored Respirations
Cardiac: S1/S2, Irregular Rhythm and Peripheral Edema; Negative Murmur
Impression / Plan
-
Gennaro Whiteside is an 84-year-old man with HFpEF, permanent atrial fibrillation, hypertension, CAD (details unknown) and CKD who presents from rehab after recent admission with cough, emesis, and hypoxia. Cardiology is consulted due to concern for
CHF exacerbation.
Net Programmer: Dr. Christie Laboy ([place])
Acute hypoxic respiratory failure
-Currently requiring high flow nasal cannula; this diagnosis is a threat to life
-Suspect he had an aspiration event yesterday resulting in aspiration pneumonia/pneumonitis given emesis, low-grade fevers, and hypotension overnight
-There is likely also a component of volume overload for which he should continue IV diuresis as below
-Consider adding antibiotics though would defer to primary team
HFpEF, acute on chronic
-Severe exacerbation requiring telemetry monitoring and IV diuresis which requires intensive monitoring for drug toxicity
-TTE 12/01/2024: LVEF 55-60%, LVH, mild/mod MR, mild/mod TR, small pericardial effusion
-Continue IV Lasix 40 mg twice daily for now
-We will need to closely monitor kidney function and volume exam. He could easily become overdiuresed with concomitant infection
-Please obtain daily standing weights and strict I/Os
Permanent atrial fibrillation
-HR is currently in the 100s. Goal HR <120
-Continue metoprolol 75 mg twice daily (1/2 home dose due to hypotension)
-Diltiazem currently on hold for hypotension. Resume as tolerated
-Continue Eliquis 5 mg twice daily
Hypertension
-Managed with rate control agents as above
CAD
-Continue statin
CKD
-Creatinine at baseline
-Trend with diuresis
Data Reviewed
-
EKG: Tracing Personally Visualized and interpreted and Discussed with Physician
Radiology: Image Personally Visualized and interpreted and Discussed with Physician
Medical Tests (Nuc Med, Echo etc): Report Reviewed by me and Discussed with Physician
Labs: Labs Reviewed by me and Discussed with Physician
Old Records: Reviewed
[2024-12-08] MEDS: LOPRESSOR 75 MG PO ×2 (09:46→20:57)
--- NOTE | 2024-12-08 11:57 | CM ---
CM following re: discharge planning.
Reviewed pt's chart,met with pt.
Pt is an 84 year old male, admitted with primary dx of Acute Hypoxic Respiratory FAilure. Heart Failure preserved Ejection Fraction, acute exacerbation. Pt currently requires 45 L HFNC, continue supportive care.
Pt reports he was born and raised in [place], emigrated with family [place] 30 years ago and resides in [facility]. Pt reports he lives with spouse in [place], 3 steps to enter, has 3 supportive children. Pt reports he ambulates with a walker
and a cane at baseline, was at [facility] two times and per pt he was ready for discharge home from [facility] and admitted to instead. Pt expressed his desire to return back home at discharge and not going to a rehab facility.
PT and OT will evaluate the pt to determine a level of care at discharge.
PCP: Christopher Crenshaw
Pharmacy: [facility]
D/C plan: uncertain at this time and will depend on pt's progress
CM will follow with discharge plan updates as hospitalization progresses
--- NOTE | 2024-12-08 12:12 | PTCARENOTE ---
pt resting comfortably OOB in chair. pt switched to midflow nasal cannula by resp therapist. 93%. no further changes in assessment
[2024-12-08] MEDS: CARDIZEM CD 180 MG PO (13:44)
[2024-12-08] MEDS: UNASYN IV ×2 (14:41→20:58)
--- NOTE | 2024-12-08 16:11 | W.PN.UPDATE ---
Update Note
Progress Note Update
BCx with GPC, repeat BCxs, start IV Vanco AFTER repeat BCxs drawn. Check echo. c/s ID (OK for ID to see 12/09/24).
--- NOTE | 2024-12-08 16:13 | PHA.VAN.IN ---
Assessment
- Assessment
Renal Function: Appears similar to baseline
Concomitant Antimicrobials: ampicillin/sulbactam
Plan
- Plan
Initial / Loading Dose: 2000mg - administer after repeat blood cultures collected
Maintenance Regimen: dosing by level
Monitoring: random 12/09 06
Pharmacokinetics Vancomycin I
- -
Patient Age: 84
Patient Sex: Male
Vancomycin Day #: 1
Indication: Bacteremia
Requesting Provider: Dr. Multani
Pertinent Antimicrobial Allergies:
NKDA
Height / Weight:
Height 5 ft 4 in
Actual Weight 74.2 kg
Pertinent Past Medical History: CKD
- Vital Signs / Lab Results
Temp Pulse Resp BP Pulse Ox
99.7 F 119 22 111/75 96
12/08/24 15:12 12/08/24 14:30 12/08/24 14:30 12/08/24 13:44 12/08/24 11:03
Lab Results - Hematology
12/07/24 12/08/24
21:16 03:59
WBC 4.5 L 3.3 L
Lab Results - Chemistry
12/07/24 12/08/24
21:15 03:59
BUN 40 H 43 H
Creatinine 1.3 1.3
Estimated Creat Clear 36 36
Albumin 3.5
Microbiology Results
12/07/24 21:15 Blood Culture - Preliminary
Blood/Venous Positive culture in progress
Gram Stain - Preliminary
12/07/24 21:20 Influenza Types A & B (FÉLIX) - Final
Nasal Swab Negative for Influenza A & B, NAAT
Negative results must be combined with clinical observations
and patient history.
Nucleic Acid Amplification test (NAAT)performed on the
[employer] platform.
[2024-12-08] MEDS: LIPITOR 40 MG PO (17:16)
[2024-12-08] MEDS: VANCOCIN 540 MG IV (17:16)
[2024-12-08] MEDS: DESENEX/MITRAZOL/ZEASORB 1 APPLIC TOPICAL (17:17)
[2024-12-09] VITALS (12 sets, daily range): BP systolic 82–130; BP diastolic 52–85; BMI 27.9
[2024-12-09] MEDS: UNASYN IV ×4 (02:49→21:04)
[2024-12-09 05:20] LABS: % Basophils 0.3 % (0-2); % Immature Granulocytes 1.4 % (0-0.5); % Lymphocytes 6.2 % (20.5-51.1); % Monocytes 2.4 % (1.7-9.3); % Neutrophils 89.7 % (42.2-75.2); Absolute Lymphocytes 0.2 10^3/uL (1.2-3.4); Absolute Monocytes 0.1 10^3/uL (0.1-0.6); Absolute Neutrophils 2.6 10^3/uL (1.4-6.5); Hematocrit 26.7 % (39.0-52.0); Mean Corpuscular Hgb 24.8 pg (27.0-31.0); Mean Corpuscular Volume 82.7 fL (80.0-94.0); Mean Platelet Volume 10.3 fL (7.4-10.4); Nucleated Red Blood Cells % 0 % (-); Platelet Count 81 10^3/uL (130-400); Red Blood Cell Count 3.23 10^6/uL (4.70-6.10); Red Cell Dist. Width 18.4 % (11.5-14.5); White Blood Cell Count 2.9 10^3/uL (4.8-10.8)
[2024-12-09 05:27] LABS: Blood Urea Nitrogen 41 mg/dl (9-20); Calcium 7.5 mg/dl (8.4-10.2); Carbon Dioxide 28 mmol/L (22-30); Chloride 102 mmol/L (98-107); Estimated Creatinine Clearance 39 ml/min; Glucose 157 mg/dl (70-99); Magnesium 1.6 mg/dl (1.6-2.3); Potassium 3.7 mmol/L (3.5-5.1); Sodium 138 mmol/L (135-145); eGFR > 60.00
[2024-12-09 05:46] LABS: Vancomycin Random 13.4 ug/ml
--- NOTE | 2024-12-09 07:18 | PTCARENOTE ---
No acute changes overnight. Pt able to communicate in simple Beninese. Pt grossly incont in diaper. barrier cream applied generously. Afib on tele. Denies any pain. Midflow titrated per the worklist. Call fernandez within reach.
--- NOTE | 2024-12-09 07:47 | W.PN.HOSP.TC ---
Addendum entered and electronically signed by Christen Sampson MD 12/09/24 15:01:
sepsis, POA
-antibiotics as below
Sacral foam applied to sacrum for area of redness/ stage 1.
-appreciate wound care
Original Note:
Today's Communication/Plan
-
diuresis
IV Unasyn/Vanc
wean O2 as able
appreciate ID and Cardiology
Assessment / Plan
Assessment / Plan
Patient is a 84-year-old male with past medical history significant for permanent atrial fibrillation, HF, CAD, GERD, hypercholesterolemia, CKD, prostate cancer, bladder cancer and Hx TIA who presented to [facility] ED for evaluation of
hypoxia to60's following an episode of vomiting throughout the day. EMS stated patient found to be hypoxic in 80s despite supplemental oxygen. Patient with recent hospitalization for acute hypoxic respiratory insufficiency likely 2/2 acute HFpEF
and pulmonary edema, he was also covid +.
Overnight patient had increased oxygen requirements requiring high jean-paul and hypotension requiring levophed gtt.
ECHO (12/01/2024): Normal left ventricular systolic function.
Left ventricular ejection fraction is 55-60% .
LVH
Mild to moderate mitral regurgitation.
Mild to moderate tricuspid regurgitation.
Small pericardial effusion.
No prior study available for comparison.
TTE 12/08/24
CONCLUSIONS
Follow up study in setting of bacteremia.
Low normal left ventricular systolic function. LVEF is 50%.
Mild/moderate mitral regurgitation.
Aortic sclerosis without stenosis.
Enlarged right ventricular size. Mildly reduced right ventricular systolic
function.
Abnormal (paradoxical) septal motion consistent with conduction abnormality.
Moderate tricuspid regurgitation. Normal PASP.
No vegetation within limits of TTE.
Compared to 12/01/24: RV appears similar when images directly compared. TR
looks moderate, compared to mild/moderate previously. LVEF is now low normal,
but A fib rates are higher.
Acute Hypoxic Respiratory FAilure
Heart Failure preserved Ejection Fraction, acute exacerbation
-Trop negative
-admitted to IMU
-IV Lasix 40 BID
-did not require Levophed overnight
-Cardiology consult appreciated
-strict I/O, daily weights
-O2 needs weaning down
Aspiration Pneumonia
1/4 Blood cultures gram + cocci in pairs and chains
-IV Unasyn initiated on 12/08
-IV Vanc started after repeat blood cultures
-TTE without vegetation
-ID consulted
Permanent Atrial Fibrillation
-patient is on Metoprolol 150mg PO BID and Diltiazem 360mg PO QD
-for now will resume 1/2 dose Metoprolol, 1/2 dose Diltiazem given low BP overnight
-continue ROLL TRUCKER Eliquis
-F/U further Cardiology recs on med titration
Hx Coronary Artery Disease
-ROLL TRUCKER Eliquis/Statin
Essential HTN
HLD - ROLL TRUCKER Statin
Normocytic anemia
-Hg at baseline this morning, yest value likely outlier
-will repeat this afternoon given further drop overnight, no e/o active bleeding
GERD - ROLL TRUCKER Protonix
BPH - ROLL TRUCKER Flomax
DVT PPx ROLL TRUCKER Eliquis
DNR
51 minutes spent on patient care
Anticipated Discharge: > 48 hours
Subjective/Interval History
-
Date of Service: December 09, 2024
he is feeling better
breathing improved
Objective Data
-
Labs:
Laboratory Results
12/09/24 12/09/24
04:51 14:00
WBC 2.9 L
Hgb 8.0 L Pending
Hct 26.7 L
Plt Count 81 L D
Sodium 138
Potassium 3.7
Chloride 102
Carbon Dioxide 28
BUN 41 H
Creatinine 1.2
Glucose 157 H
Calcium 7.5 L
Vital Signs:
Vital Signs
Temp Pulse Resp BP Pulse Ox
98 F 116 15 82/60 92
12/09/24 03:35 12/09/24 07:15 12/09/24 07:15 12/09/24 06:00 12/09/24 07:15
I&O
12/08/24 12/09/24 12/10/24
06:59 06:59 06:59
Intake Total 120 / 120 1680 / 1680
Output Total 200 / 350 650 / 650
Balance -80 / -230 1030 / 1030
Review of Systems
-
History Source: Patient
All other systems: Reviewed and negative
Physical Exam
-
General: No Apparent Distress
HEENT: Normocephalic
Respiratory: Rales
Cardiac: Irregular Rhythm, JVD and Tachycardic
GI: Soft, Nontender and Distended
Musculoskeletal: Other (trace b/l edema )
Skin: Warm
Neuro: Awake, Alert, Oriented and AO x 3
Psych: Calm
Data Reviewed
-
Diagnostic Radiology: Report Reviewed by me
Labs: Labs Reviewed by me
[2024-12-09] MEDS: CARDIZEM CD 180 MG PO ×2 (09:08→20:36)
[2024-12-09] MEDS: LASIX 40 MG IV ×2 (09:08→16:06)
[2024-12-09] MEDS: LOPRESSOR 75 MG PO (09:08)
[2024-12-09] MEDS: PROTONIX 40 MG PO ×2 (09:08→20:36)
[2024-12-09] MEDS: ELIQUIS 5 MG PO ×2 (09:09→20:37)
[2024-12-09] MEDS: FLOMAX 0.4 MG PO (09:09)
[2024-12-09] MEDS: KCL 40 MEQ PO (09:09)
--- NOTE | 2024-12-09 09:17 | CON.ID ---
Addendum entered and electronically signed by Rolando Ingram DO 12/09/24 12:33:
I personally performed a history and physical exam of the patient and discussed management with the resident in detail. I reviewed the resident's note and agree with the documented findings and plan of care HPI/CC.
Continue with Unasyn for now in coverage of bacteremia, and suspected aspiration pneumonia.
Discontinue further vancomycin.
Await further culture data.
Monitor white count and temperature curve
Original Note:
Consultation
-
Date/Time Consultation Requested: 12/09/2024
Date/Time Consultation Performed: 12/09/2024
Requesting Provider: Dr. Rolando Ingram
Performing Provider: Dr Sujit Gutierrez
Reason for Consultation: BC -gram-positive cocci
Chief Complaint / Past History
History of Present Illness
84-year-old male with history of permanent afib, prostate cancer, bladder cancer was seen in the ER for hypoxia. History obtained from chart review and patient interview.
Patient was brought from [facility] due to hypoxia(oxygen saturation 80), cough, multiple episodes of emesis. Patient had been recently discharged from the hospital on 12/02. He was hospitalized due to acute hypoxic respiratory failure secondary
to COVID-19 infection. In the ER patient was found to have acute hypoxic respiratory failure, HFPEF with acute exacerbation, was started on high flow of oxygen and diuresed for volume overload. Few hours later he became hypotensive and was
admitted to ICU, was started on Levophed. Currently patient is afebrile, white count of 2.9 with a left shift. Blood cultures are positive for Streptococcus species and Infectious disease is asked to comment on further antimicrobial
recommendation.
Past History
Additional Past Medical History:
Permanent atrial fibrillation
HFpEF
CAD
GERD
hypercholesterolemia
CKD
prostate cancer
bladder cancer
Hx TIA
Additional Past Surgical History:
Urological
port placed in June
Allergy History:
No Known Allergies Allergy (Unverified 11/24/24 04:25)
Medications Reviewed: Yes
Current Antibiotics:
Vancomycin
Unasyn
Social History
Tobacco: Non-Smoker
Alcohol: None
Drug: None
Personal:
Living: [facility]
Employment: Retired
Family History
Family History: Not Pertinent
Review of Systems
Vital Signs
Temp Pulse Resp BP Pulse Ox
97.7 F 120 15 119/74 92
12/09/24 07:35 12/09/24 09:08 12/09/24 07:15 12/09/24 09:08 12/09/24 07:15
Physical Exam
Physical Exam
Constitutional: Non-toxic
Head: Normocephalic
Eyes: Pupils Equal and Pupils Round
Cardiovascular: S1/S2 and Other (Irregular rhythm); Negative Murmur or Rub
Pulmonary: Coarse (bilaterally ) and Other
Gastrointestinal: Soft, Tender (mild suprapubic ) and Non Distended
Extremities: Edema (2+ pitting bilateral lower extremity)
Skin: Warm and Dry
Wound: None
Neurological: Other ( not oriented to time/place/person)
Psychological: Confused
Lines: Port (right IJ, no tenderness/erythema/drainage )
Lab / Diagnostic Study Results
12/09/24 04:51
Abs Immat Gran (auto) 0.0 10^3/uL (0-0.05) 12/09/24 04:51
Absolute Neuts (auto) 2.6 10^3/uL (1.4-6.5) 12/09/24 04:51
Absolute Lymphs (auto) 0.2 10^3/uL (1.2-3.4) L 12/09/24 04:51
Absolute Monos (auto) 0.1 10^3/uL (0.1-0.6) 12/09/24 04:51
Absolute Basos (auto) 0.0 10^3/uL (0-0.2) 12/09/24 04:51
Immature Gran % 1.4 % (0-0.5) H 12/09/24 04:51
Neutrophils % 89.7 % (42.2-75.2) H 12/09/24 04:51
Lymphocytes % 6.2 % (20.5-51.1) L 12/09/24 04:51
Monocytes % 2.4 % (1.7-9.3) 12/09/24 04:51
Eosinophils % 0.0 % (0-6) 12/09/24 04:51
Basophils % 0.3 % (0-2) 12/09/24 04:51
Procalcitonin < 0.05 ng/ml (0.0-0.25) 12/07/24 21:16
Microbiology Results
Micro:
12/07/24 21:15 Blood Culture - Preliminary
Blood/Venous Streptococcus species
Gram Stain - Preliminary
12/08/24 03:59 MRSA Screen - Final
Nose No Methicillin Resistant Staphylococcus aureus isolated.
12/07/24 21:15 Blood Culture - Preliminary
Blood/Venous No Growth in 24 hours- Final report to follow
12/08/24 17:11 Blood Culture - Pending
Blood/Venous
12/08/24 16:29 Blood Culture - Pending
Blood/Venous
12/07/24 21:20 Influenza Types A & B (FÉLIX) - Final
Nasal Swab Negative for Influenza A & B, NAAT
Negative results must be combined with clinical observations
and patient history.
Nucleic Acid Amplification test (NAAT)performed on the
[employer] platform.
Imaging
12/08/2024 chest x-ray- patchy opacities in bilateral lower lobes.
Assessment / Plan
Acute hypoxic respiratory failure
-remains on 6 L O2
Bacteremia
HFpEF acute on chronic
- IV lasix
Pneumonia ; suspected aspiration given he had emesis
Permanent atrial fibrillation
CKD
Prostate cancer
Bladder cancer
Plan
Patient afebrile although leukopenic (WBC 2.9) with left shift
Chest x-ray shows bilateral lower opacities concerns for aspiration pneumonia
1/4 blood cultures positive for Streptococcus species.
Discontinue vancomycin.
Continue Unasyn as blood culture with strep species and current abx will cover for aspiration and recuperative strep species
--- NOTE | 2024-12-09 09:23 | W.PN.CD ---
Today's Communication / Plan
-
continue IV Lasix 40 mg twice daily
increase diltiazem to 180mg bid; increase metoprolol tartrate to 100mg bid
Impression / Plan
-
Gennaro Whiteside is an 84-year-old man with HFpEF, permanent atrial fibrillation, hypertension, CAD (details unknown) and CKD who presents from rehab after recent admission with cough, emesis, and hypoxia. Cardiology is consulted due acute HF and A
fib with RVR.
Psychiatric Nursing Aide: Dr. Christie Laboy ([place])
Acute hypoxic respiratory failure
-suspected aspiration, also with one Bcx + for GPC
-Abx per hospitalist
HFpEF, acute on chronic
-Severe exacerbation requiring telemetry monitoring and IV diuresis which requires intensive monitoring for drug toxicity
-TTE 12/01/2024: LVEF 55-60%, LVH, mild/mod MR, mild/mod TR, small pericardial effusion
-Continue IV Lasix 40 mg twice daily
Permanent atrial fibrillation
-HR is currently in the 110s.
-BP better, will work on increasing meds to home doses
-increase diltiazem to 180mg bid; increase metoprolol tartrate to 100mg bid
-Continue Eliquis 5 mg twice daily
Moderate TR, mild/moderate MR
-diuresis as above
Hypertension
-Managed with rate control agents as above
CAD
-Continue statin
CKD3a
-Creatinine at baseline
-Trend with diuresis
Physical Exam
Vital Signs/Labs
Vital Signs
Temp Pulse Resp BP Pulse Ox
97.7 F 120 15 119/74 92
12/09/24 07:35 12/09/24 09:08 12/09/24 07:15 12/09/24 09:08 12/09/24 07:15
12/08/24 12/09/24 12/10/24
06:59 06:59 06:59
Actual Weight 74.2 kg 73.8 kg
12/09/24 04:51
Magnesium 1.6 mg/dl (1.6-2.3) 12/09/24 04:51
TSH 2.56 uIU/ml (0.47-4.68) 12/07/24 21:15
12/07/24
21:16
[id number] Pept [id number]
LAB Results
12/07/24
21:16
Troponin I < 0.012
Physical Exam
Constitutional: No acute distress
EENT: Moist mucous membranes
Cardiovascular: Rhythm/rate is irregular, Pedal edema present, JVD present and Systolic murmur present
Respiratory: Respiratory effort normal and Lungs clear to auscul.
Neuro/Psych: AO x 3
Data Reviewed
-
Date of Service: December 09, 2024
EKG: Other (Tele: A fib 110s)
Labs: Labs Reviewed by me
--- NOTE | 2024-12-09 10:02 | PN.CDI ---
CDI
- -
CDI:
Physician Documentation Request
Admit Date: 12/07/24 23:51
Dear Doctor Camilla,
Patient admitted for heart failure.
12/08 PCN: 'Sacral foam applied to sacrum for area of redness/ stage 1.'
Nursing documentation wound care clinical panel
12/08/24
01:34 12/08/24
21:37
Pressure injury appearance (Stage 1) [Present on admission Sacrum] Non blanchable
red Non blanchable
red
Pressure injury stage [Present on admission Sacrum] Stage 1 Stage 1
Surrounding Skin - [Present on admission Sacrum] Dry and intact
Treatment provided [Present on admission Sacrum] Silicone border
foam Barrier
ointment
Open to air
Physician documentation of the type and location of wounds is required for compliant documentation. Based on the above clinical findings and your assessment, please provide the following in your progress note:
1. Location of the ulcer/wound, including laterality.
2. Type (etiology) of ulcer/wound:
- Diabetic ulcer
- Arterial (ischemic) ulcer
- Traumatic wound
- Venous stasis ulcer
- Pressure (decubitus) ulcer
- Non-healing surgical wound
- Other
- Unable to determine
3. For a non-pressure ulcer, please indicate the depth/severity:
- Limited to the breakdown of skin
- With fat layer exposed
- With necrosis of muscle
- With necrosis of bone
- Other
- Unable to determine
4. If a pressure ulcer, please also include the stage* of the ulcer:
- Stage 1 - Skin intact, non-blanchable redness
- Stage 2 - Partial thickness loss of dermis, includes intact or open blister
- Stage 3 - Full thickness tissue not including bone, tendon or muscle
- Stage 4 - Full thickness tissue loss, including exposed bone, tendon or muscle
- Unstageable - Full thickness loss in which the base of the ulcer is covered by slough (yellow, chiang, garrett, green or brown) and/or eschar (chiang, brown or black) in the wound bed.
- Unable to determine
Use of terms such as suspected, likely, concern for, or probable (associated with a specific diagnosis that is being evaluated, monitored, or treated as if it exists) are acceptable and can be coded in the inpatient setting, when documented at the
time of discharge.
Thank you,
Felicity Cope RN, BSN
CDI Specialist
Available via [place] text
Please use your independent medical judgment in providing your response.
*Source: National Pressure Ulcer Advisory Panel (NPUAP)
--- NOTE | 2024-12-09 10:05 | PN.CDI ---
CDI
- -
CDI:
Physician Documentation Request
Admit Date: 12/07/24 23:51
Dear Doctor Camilla,
Patient admitted for heart failure.
12/08 Hospitalist PN: 'Aspiration Pneumonia
09/24 Blood cultures gram + cocci in pairs and chains
-IV Unasyn initiated on 12/08
-IV Vanc started after repeat blood cultures
-TTE without vegetation
-ID consulted'
Selected Entries
12/07/24
21:30 12/07/24
22:00 12/07/24
23:45
Pulse 115 112 111
12/07/24
21:15 12/07/24
21:45 12/07/24
22:15
Resp Rate 32 25 26
Please clarify which of the following most accurately describes the status of the patient's infection:
Sepsis, POA
- Systemic manifestations of infection, with 2 or more SIRS criteria which include:
- Fever >100.4 degrees F or hypothermia < 96.8 degrees F
- Leukocytosis - WBC > 12,000 or leukopenia - WBC < 4,000 or > 10% bands
- Tachycardia > 90 beats per minute
- Tachypnea - RR > 20 breaths per minute or PaCO2 , 32mmHg
Source: Merck Manual 2013
- Indicate the known or suspected organism
- Indicate the known or suspected underlying infection, such as pneumonia
Localized Infection Only, Without Systemic Illness
- indicate the site/source, such as UTI, pneumonia etc.
Bacteremia
- Abnormal lab finding only, does not indicate systemic illness
Other
Use of terms such as suspected, likely, concern for, or probable (associated with a specific diagnosis that is being evaluated, monitored, or treated as if it exists) are acceptable and can be coded in the inpatient setting, when documented at the
time of discharge.
Thank you,
Felicity Cope RN, BSN
CDI Specialist
Available via [place] text
Please use your independent medical judgment in providing your response.
[2024-12-09 13:34] LABS: Hemoglobin 8.5 g/dL (13.0-18.0)
--- NOTE | 2024-12-09 13:42 | CM ---
CM following re: discharge planning.
Reviewed pt's chart,met with pt and pt's spouse at bedside.
Pt currently requires 6 L midflow NC, down from 45 L HFNC, continue supportive care.
Pt reports he was born and raised in [facility] [place], emigrated with family to [place] 30 years ago and resides in [facility]. Pt reports he lives with spouse in [place], 3 steps to enter, has 3 supportive children. Pt reports he ambulates with a walker
and a cane at baseline, was at [facility] two times and per pt he was ready for discharge home from [facility] and admitted to instead.
PT and OT evaluations noted - SNF level of care recommended. Both pt and his spouse are aware, expressed their agreement and [facility] preferred. per spouse, there is no needs to change SNF especially she had no issues with pt being at
[facility].
A referral to [facility] made.
D/C plan: [facility] to continue on skilled services/short term rehab.
CM will follow to assist pt with discharge to [facility].
[2024-12-09] MEDS: LIPITOR 40 MG PO (17:35)
[2024-12-09] MEDS: LOPRESSOR 100 MG PO (20:36)
[2024-12-09] MEDS: FLUSH (NSS) 1 FLUSH IV (21:06)
[2024-12-10] MEDS: UNASYN IV ×4 (03:11→21:09)
[2024-12-10 03:38] VITALS: BP 104/66
[2024-12-10 06:00] VITALS: BMI 28.2
[2024-12-10 06:24] LABS: % Immature Granulocytes 0.9 % (0-0.5); % Lymphocytes 8.2 % (20.5-51.1); % Monocytes 3.4 % (1.7-9.3); % Neutrophils 87.5 % (42.2-75.2); Absolute Lymphocytes 0.3 10^3/uL (1.2-3.4); Absolute Monocytes 0.1 10^3/uL (0.1-0.6); Absolute Neutrophils 2.8 10^3/uL (1.4-6.5); Hematocrit 26.6 % (39.0-52.0); Hemoglobin 8.1 g/dL (13.0-18.0); Mean Corp Hgb Conc. 30.5 g/dL (33.0-37.0); Mean Corpuscular Hgb 24.8 pg (27.0-31.0); Mean Corpuscular Volume 81.6 fL (80.0-94.0); Mean Platelet Volume 10.8 fL (7.4-10.4); Nucleated Red Blood Cells % 0 % (-); Platelet Count 87 10^3/uL (130-400); Red Blood Cell Count 3.26 10^6/uL (4.70-6.10); White Blood Cell Count 3.2 10^3/uL (4.8-10.8)
[2024-12-10 06:27] LABS: Blood Urea Nitrogen 36 mg/dl (9-20); Calcium 7.8 mg/dl (8.4-10.2); Carbon Dioxide 28 mmol/L (22-30); Chloride 100 mmol/L (98-107); Estimated Creatinine Clearance 43 ml/min; Glucose 149 mg/dl (70-99); Potassium 3.9 mmol/L (3.5-5.1); Sodium 135 mmol/L (135-145); eGFR > 60.00
[2024-12-10 07:00] VITALS: BP 121/78
[2024-12-10] MEDS: LASIX 40 MG IV (08:17)
[2024-12-10] MEDS: KCL 40 MEQ PO (08:18)
[2024-12-10] MEDS: PROTONIX 40 MG PO ×2 (08:18→21:09)
[2024-12-10] MEDS: CARDIZEM CD 180 MG PO ×2 (08:23→21:09)
[2024-12-10] MEDS: LOPRESSOR 100 MG PO (08:23)
[2024-12-10] MEDS: ELIQUIS 5 MG PO ×2 (08:23→21:09)
[2024-12-10] MEDS: FLOMAX 0.4 MG PO (08:23)
[2024-12-10 11:00] VITALS: BP 107/67
--- NOTE | 2024-12-10 11:46 | W.PN.CD ---
Today's Communication / Plan
-
transition to lasix 40mg PO daily
continue diltiazem to 180mg bid; increase metoprolol tartrate to 150mg bid (home dose)
Impression / Plan
-
Gennaro Whiteside is an 84-year-old man with HFpEF, permanent atrial fibrillation, hypertension, CAD (details unknown) and CKD who presents from rehab after recent admission with cough, emesis, and hypoxia. Cardiology is consulted due acute HF and A
fib with RVR.
[employer] Consultant: Dr. Christie Laboy ([place])
Acute hypoxic respiratory failure
-suspected aspiration, also with one Bcx + for GPC
-Abx per hospitalist
HFpEF, acute on chronic, improved s/p IV lasix
-TTE 12/01/2024: LVEF 55-60%, LVH, mild/mod MR, mild/mod TR, small pericardial effusion
-transition to lasix 40mg PO daily
Permanent atrial fibrillation
-HR is currently in the 110s.
-BP better, will work on increasing meds to home doses
-continue diltiazem to 180mg bid; increase metoprolol tartrate to 150mg bid (home dose)
-Continue Eliquis 5 mg twice daily
Moderate TR, mild/moderate MR
-diuresis as above
Hypertension
-Managed with rate control agents as above
CAD
-Continue statin
CKD3a
-Creatinine at baseline
-Trend with diuresis
Physical Exam
Vital Signs/Labs
Vital Signs
Temp Pulse Resp BP Pulse Ox
98.0 F 117 14 107/67 98
12/10/24 11:00 12/10/24 11:00 12/10/24 11:00 12/10/24 11:00 12/10/24 11:00
12/09/24 12/10/24 12/11/24
06:59 06:59 06:59
Actual Weight 73.8 kg 74.503 kg
12/10/24 05:30
12/10/24 05:30
Magnesium 1.6 mg/dl (1.6-2.3) 12/09/24 04:51
TSH 2.56 uIU/ml (0.47-4.68) 12/07/24 21:15
12/07/24
21:16
[id number]-K-Itdsfuvaepz Pept [id number]
LAB Results
12/07/24
21:16
Troponin I < 0.012
Physical Exam
Constitutional: No acute distress and Comfortable
EENT: Moist mucous membranes
Cardiovascular: JVD pressure is normal, Rhythm/rate is irregular, Pedal edema present and Systolic murmur present
Respiratory: Respiratory effort normal and Lungs clear to auscul.
Neuro/Psych: Alert
Data Reviewed
-
Date of Service: December 10, 2024
EKG: Other (Tele: A fib 100-110s)
Labs: Labs Reviewed by me
--- NOTE | 2024-12-10 12:42 | W.PN.HOSP.TC ---
Today's Communication/Plan
-
antibiotics
diuresis
Assessment / Plan
Assessment / Plan
Patient is a 84-year-old male with past medical history significant for permanent atrial fibrillation, HF, CAD, GERD, hypercholesterolemia, CKD, prostate cancer, bladder cancer and Hx TIA who presented to [facility] ED for evaluation of
hypoxia to60's following an episode of vomiting throughout the day. EMS stated patient found to be hypoxic in 80s despite supplemental oxygen. Patient with recent hospitalization for acute hypoxic respiratory insufficiency likely 2/2 acute HFpEF
and pulmonary edema, he was also covid +.
Overnight patient had increased oxygen requirements requiring high jean-paul and hypotension requiring levophed gtt.
ECHO (12/01/2024): Normal left ventricular systolic function.
Left ventricular ejection fraction is 55-60% .
LVH
Mild to moderate mitral regurgitation.
Mild to moderate tricuspid regurgitation.
Small pericardial effusion.
No prior study available for comparison.
TTE 12/08/24
CONCLUSIONS
Follow up study in setting of bacteremia.
Low normal left ventricular systolic function. LVEF is 50%.
Mild/moderate mitral regurgitation.
Aortic sclerosis without stenosis.
Enlarged right ventricular size. Mildly reduced right ventricular systolic
function.
Abnormal (paradoxical) septal motion consistent with conduction abnormality.
Moderate tricuspid regurgitation. Normal PASP.
No vegetation within limits of TTE.
Compared to 12/01/24: RV appears similar when images directly compared. TR
looks moderate, compared to mild/moderate previously. LVEF is now low normal,
but A fib rates are higher.
Acute Hypoxic Respiratory FAilure
Heart Failure preserved Ejection Fraction, acute exacerbation
-Trop negative
-admitted to IMU
-IV Lasix 40 BID
-Cardiology consult appreciated
-strict I/O, daily weights
-O2 needs weaning down
Aspiration Pneumonia
Sepsis 2/2 Above
1/4 Blood cultures gram + cocci in pairs and chains
-IV Unasyn initiated on 12/08
-IV Vanc started after repeat blood cultures - d/c'd
-TTE without vegetation
-ID consult appreciated
-F/U repeat cultures
Permanent Atrial Fibrillation
-patient is on Metoprolol 150mg PO BID and Diltiazem 360mg PO QD - they were started at lower dose in setting of sepsis
-Metop increased to home dose today; continue Dilt 180 BID
-continue METHODS ENGINEER Eliquis
-appreciate Cardiology
Hx Coronary Artery Disease
-METHODS ENGINEER Eliquis/Statin
Essential HTN
HLD - METHODS ENGINEER Statin
Normocytic anemia
-Hg stable > 8
-monitor daily
GERD - METHODS ENGINEER Protonix
BPH - METHODS ENGINEER Flomax
DVT PPx METHODS ENGINEER Eliquis
DNR
51 minutes spent on patient care
Anticipated Discharge: 24 - 48 hours
Subjective/Interval History
-
Date of Service: December 10, 2024
feeling well
urinating frequently
Objective Data
-
Labs:
Laboratory Results
12/10/24
05:30
WBC 3.2 L
Hgb 8.1 L
Hct 26.6 L
Plt Count 87 L
Sodium 135
Potassium 3.9
Chloride 100
Carbon Dioxide 28
BUN 36 H
Creatinine 1.1
Glucose 149 H
Calcium 7.8 L
Vital Signs:
Vital Signs
Temp Pulse Resp BP Pulse Ox
98.0 F 117 14 107/67 98
12/10/24 11:00 12/10/24 11:00 12/10/24 11:00 12/10/24 11:00 12/10/24 11:00
I&O
12/09/24 12/10/24 12/11/24
06:59 06:59 06:59
Intake Total 1680 / 1680 1160 / 1160
Output Total 650 / 650
Balance 1030 / 1030 1160 / 1160
Review of Systems
-
History Source: Patient
All other systems: Reviewed and negative
Physical Exam
-
General: No Apparent Distress
HEENT: Normocephalic
Respiratory: Rales
Cardiac: Irregular Rhythm, JVD and Tachycardic
GI: Soft, Nontender and Distended
Musculoskeletal: Other (trace b/l edema )
Skin: Warm
Neuro: Awake, Alert, Oriented and AO x 3
Psych: Calm
Data Reviewed
-
Diagnostic Radiology: Report Reviewed by me
Labs: Labs Reviewed by me
[2024-12-10 15:15] VITALS: BP 108/72
[2024-12-10] MEDS: LIPITOR 40 MG PO (17:18)
[2024-12-10] MEDS: ROBITUSSIN 100 MG PO ×2 (19:23→23:22)
[2024-12-10 19:35] VITALS: BP 114/76
[2024-12-10] MEDS: LOPRESSOR 150 MG PO (21:09)
[2024-12-10 23:30] VITALS: BP 104/66
[2024-12-11] MEDS: UNASYN IV ×4 (03:41→20:34)
[2024-12-11 04:32] VITALS: BP 125/75
--- NOTE | 2024-12-11 05:46 | VATNOTE ---
Patient refused lab work, primary RN notified.
[2024-12-11 06:00] VITALS: BMI 28.5
[2024-12-11] MEDS: CARDIZEM CD 180 MG PO ×2 (07:38→20:34)
[2024-12-11] MEDS: KCL 40 MEQ PO (07:38)
[2024-12-11] MEDS: LOPRESSOR 150 MG PO ×2 (07:38→20:35)
[2024-12-11] MEDS: PROTONIX 40 MG PO ×2 (07:38→20:34)
[2024-12-11] MEDS: LASIX 40 MG PO (07:39)
[2024-12-11] MEDS: FLOMAX 0.4 MG PO (07:39)
[2024-12-11 07:42] VITALS: BP 123/81
--- NOTE | 2024-12-11 07:57 | VATNOTE ---
Reassessed for AM lab draw, again refused.
[2024-12-11] MEDS: ELIQUIS 5 MG PO ×2 (08:10→20:35)
--- NOTE | 2024-12-11 09:18 | VATNOTE ---
Again refused labs
--- NOTE | 2024-12-11 10:10 | W.PN.HOSP.TC ---
Today's Communication/Plan
-
see plan
Assessment / Plan
Assessment / Plan
Patient is a 84-year-old male with past medical history significant for permanent atrial fibrillation, HF, CAD, GERD, hypercholesterolemia, CKD, prostate cancer, bladder cancer and Hx TIA who presented to [facility] ED for evaluation of
hypoxia to60's following an episode of vomiting throughout the day. EMS stated patient found to be hypoxic in 80s despite supplemental oxygen. Patient with recent hospitalization for acute hypoxic respiratory insufficiency likely 2/2 acute HFpEF
and pulmonary edema, he was also covid +.
Overnight patient had increased oxygen requirements requiring high jean-paul and hypotension requiring levophed gtt.
ECHO (12/01/2024): Normal left ventricular systolic function.
Left ventricular ejection fraction is 55-60% .
LVH
Mild to moderate mitral regurgitation.
Mild to moderate tricuspid regurgitation.
Small pericardial effusion.
No prior study available for comparison.
TTE 12/08/24
CONCLUSIONS
Follow up study in setting of bacteremia.
Low normal left ventricular systolic function. LVEF is 50%.
Mild/moderate mitral regurgitation.
Aortic sclerosis without stenosis.
Enlarged right ventricular size. Mildly reduced right ventricular systolic
function.
Abnormal (paradoxical) septal motion consistent with conduction abnormality.
Moderate tricuspid regurgitation. Normal PASP.
No vegetation within limits of TTE.
Compared to 12/01/24: RV appears similar when images directly compared. TR
looks moderate, compared to mild/moderate previously. LVEF is now low normal,
but A fib rates are higher.
Acute Hypoxic Respiratory FAilure
Heart Failure preserved Ejection Fraction, acute exacerbation
-Trop negative
-admitted to IMU, now transferred to telemetry
-s/p IV diuresis; changed to oral. Discussing possible further IV with Cardiology with increased weight and JVP, on 3L. Although patient refused AM labs - need to obtain labs first
-Cardiology consult appreciated
-strict I/O, daily weights
-O2 as needed
Aspiration Pneumonia
Sepsis 2/2 Above
1/4 Blood cultures gram + cocci in pairs and chains
-IV Unasyn initiated on 12/08
-IV Vanc started after repeat blood cultures - d/c'd
-TTE without vegetation
-ID consult appreciated
-F/U repeat cultures - per micro should return later this afternoon
Permanent Atrial Fibrillation
-patient is on Metoprolol 150mg PO BID and Diltiazem 360mg PO QD - they were started at lower dose in setting of sepsis
-Metop increased to home dose today; continue Dilt 180 BID
-continue ACCOUNT DEVELOPMENT MANAGER Eliquis
-appreciate Cardiology
Hx Coronary Artery Disease
-ACCOUNT DEVELOPMENT MANAGER Eliquis/Statin
Essential HTN
HLD - ACCOUNT DEVELOPMENT MANAGER Statin
Normocytic anemia
-Hg stable > 8
-monitor daily
GERD - ACCOUNT DEVELOPMENT MANAGER Protonix
BPH - ACCOUNT DEVELOPMENT MANAGER Flomax
DVT PPx ACCOUNT DEVELOPMENT MANAGER Eliquis
DNR
51 minutes spent on patient care
Anticipated Discharge: 24 - 48 hours
Subjective/Interval History
-
Date of Service: December 11, 2024
refused blood work earlier but says he'll get it later
denies chest pain or shortness of breath
Objective Data
-
Labs:
Laboratory Results
12/11/24
06:00
Sodium Pending
Potassium Pending
Chloride Pending
Carbon Dioxide Pending
BUN Pending
Creatinine Pending
Glucose Pending
Calcium Pending
Vital Signs:
Vital Signs
Temp Pulse Resp BP Pulse Ox
98.0 F 118 16 123/81 93
12/11/24 07:42 12/11/24 07:42 12/11/24 07:42 12/11/24 07:42 12/11/24 07:46
I&O
12/10/24 12/11/24 12/12/24
06:59 06:59 06:59
Intake Total 1160 / 1160 360 / 360
Output Total 500 / 500
Balance 1160 / 1160 -140 / -140
Review of Systems
-
History Source: Patient
All other systems: Reviewed and negative
Physical Exam
-
General: No Apparent Distress
HEENT: Normocephalic
Respiratory: Rales
Cardiac: Irregular Rhythm, JVD and Tachycardic
GI: Soft, Nontender and Distended
Musculoskeletal: Edema, Right Lower Extrem, Edema, Left Lower Extrem and Other
Skin: Warm
Neuro: Awake, Alert, Oriented and AO x 3
Psych: Calm
Data Reviewed
-
Diagnostic Radiology: Report Reviewed by me
Labs: Labs Reviewed by me
--- NOTE | 2024-12-11 10:40 | W.PN.ID1 ---
Date of Service
Date of Service: December 11, 2024
Today's Communication
Continue antibiotics for today.
Assessment / Plan
Acute hypoxic respiratory failure
-remains on 6 L O2
Bacteremia
HFpEF acute on chronic
- IV lasix
Pneumonia ; suspected aspiration given he had emesis
Permanent atrial fibrillation
CKD
Prostate cancer
Bladder cancer
Recommendations:
Remains afebrile but leukopenic.
Chest x-ray shows bilateral lower opacities concerns for aspiration pneumonia, although given lack of symptomatology may only be pneumonitis.
1 of 4 blood cultures positive for Streptococcus species from ER draw; suspect contaminant.
Continue Unasyn for today, although may be able to transition to oral regimen or discontinue antibiotics in the next 24 to 48 hours.
����������������������������������������������������������
Chief Complaint
-: Pneumonia (Aspiration) and Bacteremia
Subjective / Review of Systems
Review of Systems: No Fever, No Chills and Cough (Slight)
Vital Signs / Physical Exam
Vital Signs
Vital Signs
Temp Pulse Resp BP Pulse Ox
98.0 F 118 16 123/81 93
12/11/24 07:42 12/11/24 07:42 12/11/24 07:42 12/11/24 07:42 12/11/24 07:46
Physical Exam
Constitutional: Comfortable, Chronically Ill and Non-toxic
Eyes: Sclera Anicteric
Cardiovascular: S1/S2; Negative S3/S4
Pulmonary: Non Labored; Negative Wheezes or Rales
Gastrointestinal: Soft, Non Tender and Non Distended
Neurological: Awake and Alert
Psychological: Calm
Lines: Port (Accessed; no surrounding tenderness or erythema)
Objective Data
Lab Data
Lab Results
12/10/24 05:30
Estimated Creat Clear 43 ml/min 12/10/24 05:30
Total Bilirubin 1.2 mg/dl (0.2-1.3) 12/07/24 21:15
AST 38 U/L (17-59) 12/07/24 21:15
ALT 71 U/L (0-50) H 12/07/24 21:15
Alkaline Phosphatase 225 U/L (38-126) H 12/07/24 21:15
Most recent labs reviewed.
Micro Results:
12/07/24 21:15 Blood Culture - Preliminary
Blood/Venous No Growth in 72 hours- Final report to follow
12/08/24 17:11 Blood Culture - Preliminary
Blood/Venous No Growth in 48 hours- Final report to follow
12/08/24 16:29 Blood Culture - Preliminary
Blood/Venous No Growth in 48 hours- Final report to follow
12/07/24 21:15 Blood Culture - Preliminary
Blood/Venous Streptococcus species
Gram Stain - Preliminary
12/08/24 03:59 MRSA Screen - Final
Nose No Methicillin Resistant Staphylococcus aureus isolated.
12/07/24 21:20 Influenza Types A & B (FÉLIX) - Final
Nasal Swab Negative for Influenza A & B, NAAT
Negative results must be combined with clinical observations
and patient history.
Nucleic Acid Amplification test (NAAT)performed on the
[email or web address] platform.
Imaging
12/08/2024 chest x-ray- patchy opacities in bilateral lower lobes.
Care Review
Plan reviewed with: Physician (Hospitalist)
[2024-12-11 11:00] VITALS: BP 120/78
[2024-12-11] MEDS: ROBITUSSIN 100 MG PO (11:33)
[2024-12-11 12:18] LABS: Blood Urea Nitrogen 35 mg/dl (9-20); Calcium 8.1 mg/dl (8.4-10.2); Carbon Dioxide 28 mmol/L (22-30); Chloride 101 mmol/L (98-107); Estimated Creatinine Clearance 39 ml/min; Glucose 185 mg/dl (70-99); Potassium 4.4 mmol/L (3.5-5.1); Sodium 136 mmol/L (135-145); eGFR > 60.00
--- NOTE | 2024-12-11 13:41 | W.PN.CD ---
Today's Communication / Plan
-
increase PO lasix to 80mg daily
Impression / Plan
-
Gennaro Whiteside is an 84-year-old man with HFpEF, permanent atrial fibrillation, hypertension, CAD (details unknown) and CKD who presents from rehab after recent admission with cough, emesis, and hypoxia. Cardiology is consulted due acute HF and A
fib with RVR.
Television Installer: Dr. Christie Laboy ([place])
Acute hypoxic respiratory failure: improved
-suspected aspiration, also with one Bcx + for GPC
-Abx per hospitalist
HFpEF, acute on chronic, improved s/p IV lasix
-TTE 12/01/2024: LVEF 55-60%, LVH, mild/mod MR, mild/mod TR, small pericardial effusion
-weight up
-increase PO lasix to 80mg daily
Permanent atrial fibrillation
-rates mildly elevated
-continue diltiazem to 180mg bid; continue metoprolol tartrate to 150mg bid (home dose)
-Continue Eliquis 5 mg twice daily
Moderate TR, mild/moderate MR
-diuresis as above
Hypertension
-Managed with rate control agents as above
CAD
-Continue statin
CKD3a
-Creatinine at baseline
-Trend with diuresis
Physical Exam
Vital Signs/Labs
Vital Signs
Temp Pulse Resp BP Pulse Ox
98.3 F 105 18 120/78 91
12/11/24 11:00 12/11/24 11:00 12/11/24 11:00 12/11/24 11:00 12/11/24 11:00
12/10/24 12/11/24 12/12/24
06:59 06:59 06:59
Actual Weight 74.503 kg 75.296 kg
12/10/24 05:30
12/11/24 11:10
Magnesium 1.6 mg/dl (1.6-2.3) 12/09/24 04:51
TSH 2.56 uIU/ml (0.47-4.68) 12/07/24 21:15
12/07/24
21:16
Wrn-Q-Wteivjkrnap Pept [id number]
Physical Exam
Constitutional: No acute distress and Comfortable
EENT: Moist mucous membranes
Cardiovascular: Systolic murmur absent, Rhythm/rate is irregular, Pedal edema present and JVD present
Respiratory: Respiratory effort normal
Neuro/Psych: Alert and Oriented
Data Reviewed
-
Date of Service: December 11, 2024
EKG: Other (Tele: A fib, avg HR 100-105)
Labs: Labs Reviewed by me
[2024-12-11 15:00] VITALS: BP 123/74
[2024-12-11] MEDS: LASIX 80 MG PO (17:20)
[2024-12-11] MEDS: LIPITOR 40 MG PO (17:20)
[2024-12-11 19:25] VITALS: BP 129/78
[2024-12-11 23:31] VITALS: BP 123/80
[2024-12-12] VITALS (7 sets, daily range): BP systolic 122–143; BP diastolic 85–88; O2SAT 92; BMI 29.4
[2024-12-12] MEDS: UNASYN IV ×3 (03:17→15:14)
[2024-12-12] MEDS: ROBITUSSIN 100 MG PO (03:18)
[2024-12-12 05:28] LABS: Blood Urea Nitrogen 35 mg/dl (9-20); Calcium 8.1 mg/dl (8.4-10.2); Carbon Dioxide 29 mmol/L (22-30); Chloride 100 mmol/L (98-107); Estimated Creatinine Clearance 36 ml/min; Glucose 154 mg/dl (70-99); Sodium 136 mmol/L (135-145); eGFR 54.51
--- NOTE | 2024-12-12 08:22 | W.PN.CD ---
Today's Communication / Plan
-
IV Lasix 40 BID
Metop + Dilt for rate control
Impression / Plan
-
Gennaro Whiteside is an 84-year-old man with HFpEF, permanent atrial fibrillation, hypertension, CAD (details unknown) and CKD who presents from rehab after recent admission with cough, emesis, and hypoxia. Cardiology is consulted due acute HF and A
fib with RVR.
Shovel Mechanic: Dr. Christie Laboy ([place])
HFpEF, acute on chronic, improved s/p IV lasix
-Severe exacerbation requiring telemetry monitoring and IV diuresis which requires intensive monitoring for drug toxicity
-TTE 12/01/2024: LVEF 55-60%, LVH, mild/mod MR, mild/mod TR, small pericardial effusion
-weight continues to uptrend and continued LE edema
-agree with switching back to IV Lasix 40mg BID. Reassess for PO tomorrow.
Acute hypoxic respiratory failure: improved
-suspected aspiration, also with one Bcx + for GPC
-Abx per hospitalist
Permanent atrial fibrillation
-rates mildly elevated but would not on max AV deepti blocking therapy
-continue diltiazem 180mg bid; continue metoprolol tartrate 150mg bid (home dose)
-Continue Eliquis 5 mg twice daily
Moderate TR, mild/moderate MR
-diuresis as above
Hypertension
-Managed with rate control agents as above
CAD
-Continue statin
CKD3a
-Creatinine at baseline
-Trend with diuresis
Subjective: No CV complaints. Sitting up eating breakfast. Lasix switched back to IV this morning.
Physical Exam
Vital Signs/Labs
Vital Signs
Temp Pulse Resp BP Pulse Ox
97.9 F 103 22 130/85 96
12/12/24 03:19 12/12/24 03:19 12/12/24 03:19 12/12/24 03:19 12/12/24 03:19
12/11/24 12/12/24 12/13/24
06:59 06:59 06:59
Actual Weight 75.296 kg 77.621 kg
12/12/24 04:39
Magnesium 1.6 mg/dl (1.6-2.3) 12/09/24 04:51
TSH 2.56 uIU/ml (0.47-4.68) 12/07/24 21:15
12/07/24
21:16
Uet-E-Lyqaemfzolf Pept [id number]
Physical Exam
Constitutional: No acute distress and Comfortable
Cardiovascular: Rhythm/rate is irregular, Pedal edema present and Murmur/rub/gallop absent
Respiratory: Respiratory effort normal and Lungs clear to auscul.
Data Reviewed
-
Date of Service: December 12, 2024
Medical Decision Making: Reviewed Test Results, Independent Historian Assessment, Test Interpretation and Review of Case with other Provider
EKG: Tracing Personally Visualized and interpreted
Echo: Report Reviewed by me
X-Ray/CT/US/MRI/NUC/PET: Report Reviewed by me
Labs: Labs Reviewed by me
[2024-12-12] MEDS: KCL 40 MEQ PO (09:05)
[2024-12-12] MEDS: LOPRESSOR 150 MG PO ×2 (09:05→20:29)
[2024-12-12] MEDS: FLOMAX 0.4 MG PO (09:06)
[2024-12-12] MEDS: PROTONIX 40 MG PO ×2 (09:06→20:29)
[2024-12-12] MEDS: CARDIZEM CD 180 MG PO ×2 (09:06→20:30)
[2024-12-12] MEDS: ELIQUIS 5 MG PO ×2 (09:06→20:29)
[2024-12-12] MEDS: LASIX 40 MG IV ×2 (09:07→16:18)
[2024-12-12 09:22] LABS: Hematocrit 28.7 % (39.0-52.0); Hemoglobin 8.6 g/dL (13.0-18.0); Mean Corpuscular Hgb 24.7 pg (27.0-31.0); Mean Corpuscular Volume 82.5 fL (80.0-94.0); Mean Platelet Volume 10.8 fL (7.4-10.4); Platelet Count 118 10^3/uL (130-400); Red Blood Cell Count 3.48 10^6/uL (4.70-6.10); Red Cell Dist. Width 17.7 % (11.5-14.5); White Blood Cell Count 3.1 10^3/uL (4.8-10.8)
--- NOTE | 2024-12-12 10:08 | W.PN.HOSP.TC ---
Addendum entered and electronically signed by Christen Sampson MD 12/12/24 15:05:
pancytopenia in setting of acute illness
-CTM
Original Note:
Today's Communication/Plan
-
diuresis
IV Unasyn
appreciate consultants
Assessment / Plan
Assessment / Plan
Patient is a 84-year-old male with past medical history significant for permanent atrial fibrillation, HF, CAD, GERD, hypercholesterolemia, CKD, prostate cancer, bladder cancer and Hx TIA who presented to [facility] ED for evaluation of
hypoxia to 60's following an episode of vomiting throughout the day. EMS stated patient found to be hypoxic in 80s despite supplemental oxygen. Patient with recent hospitalization for acute hypoxic respiratory insufficiency likely 2/2 acute HFpEF
and pulmonary edema, he was also covid +. (negative this admission).
Overnight admission patient had increased oxygen requirements requiring high jean-paul and low blood pressures. 1/4 blood cultures + strep, unclear if contaminant. He has been on IV Unasyn for presumed aspiration pneumonia.
ECHO (12/01/2024): Normal left ventricular systolic function.
Left ventricular ejection fraction is 55-60% .
LVH
Mild to moderate mitral regurgitation.
Mild to moderate tricuspid regurgitation.
Small pericardial effusion.
No prior study available for comparison.
TTE 12/08/24
CONCLUSIONS
Follow up study in setting of bacteremia.
Low normal left ventricular systolic function. LVEF is 50%.
Mild/moderate mitral regurgitation.
Aortic sclerosis without stenosis.
Enlarged right ventricular size. Mildly reduced right ventricular systolic
function.
Abnormal (paradoxical) septal motion consistent with conduction abnormality.
Moderate tricuspid regurgitation. Normal PASP.
No vegetation within limits of TTE.
Compared to 12/01/24: RV appears similar when images directly compared. TR
looks moderate, compared to mild/moderate previously. LVEF is now low normal,
but A fib rates are higher.
Acute Hypoxic Respiratory FAilure
Heart Failure preserved Ejection Fraction, acute exacerbation
-Trop negative
-admitted to IMU, now transferred to telemetry
-s/p IV diuresis; changed to oral on 12/11 but patient with weight gain, remains overloaded. Refused labs yesterday morning, now has been accepting therefore OK to resume IV lasix
-Lasix 40mg IV BID
-repeat TTE from 12/08 (for bacteremia) - above
-Cardiology consult appreciated
-strict I/O, daily weights
-wean O2 as able
Aspiration Pneumonia
Sepsis 2/2 Above
1/4 Blood cultures gram + cocci in pairs and chains
-IV Unasyn initiated on 12/08
-IV Vanc started after repeat blood cultures - d/c'd
-TTE without vegetation
-ID consult appreciated
-F/U final cultures - strep species
Permanent Atrial Fibrillation
-patient is on Metoprolol 150mg PO BID and Diltiazem 360mg PO QD - they were started at lower dose in setting of sepsis
-Metop increased to home dose; continue Dilt 180 BID
-continue GEAR GRINDING MACHINE OPERATOR Eliquis
-appreciate Cardiology
Hx Coronary Artery Disease
-GEAR GRINDING MACHINE OPERATOR Eliquis/Statin
Essential HTN
HLD - GEAR GRINDING MACHINE OPERATOR Statin
Normocytic anemia
-Hg stable > 8
-monitor daily
Thrombocytopenia in setting of sepsis
-resolving
GERD - GEAR GRINDING MACHINE OPERATOR Protonix
BPH - GEAR GRINDING MACHINE OPERATOR Flomax
DVT PPx GEAR GRINDING MACHINE OPERATOR Eliquis
DNR
51 minutes spent on patient care
Anticipated Discharge: 24 - 48 hours
Subjective/Interval History
-
Date of Service: December 12, 2024
urinating frequently this morning
Objective Data
-
Labs:
Laboratory Results
12/12/24 12/12/24
04:39 08:59
WBC 3.1 L
Hgb 8.6 L
Hct 28.7 L
Plt Count 118 L D
Sodium 136
Potassium 4.0
Chloride 100
Carbon Dioxide 29
BUN 35 H
Creatinine 1.3
Glucose 154 H
Calcium 8.1 L
Vital Signs:
Vital Signs
Temp Pulse Resp BP Pulse Ox
98.1 F 113 18 136/88 98
12/12/24 07:25 12/12/24 09:05 12/12/24 07:25 12/12/24 09:05 12/12/24 07:25
I&O
12/11/24 12/12/24 12/13/24
06:59 06:59 06:59
Intake Total 360 / 360 360 / 360
Output Total 500 / 500 775 / 775
Balance -140 / -140 -415 / -415
Review of Systems
-
History Source: Patient
All other systems: Reviewed and negative
Physical Exam
-
General: No Apparent Distress
HEENT: Normocephalic
Respiratory: Rales
Cardiac: Irregular Rhythm, JVD and Tachycardic
GI: Soft, Nontender and Distended
Musculoskeletal: Edema, Right Lower Extrem, Edema, Left Lower Extrem and Other
Skin: Warm
Neuro: Awake, Alert, Oriented and AO x 3
Psych: Calm
Data Reviewed
-
Diagnostic Radiology: Report Reviewed by me
Labs: Labs Reviewed by me
[2024-12-12 11:03] LABS: Magnesium 1.6 mg/dl (1.6-2.3)
--- NOTE | 2024-12-12 13:06 | PN.CDI ---
CDI
- -
CDI:
Physician Documentation Request
Admit Date: 12/07/24 23:51
Dear Doctor Camilla,
Patient admitted for sepsis.
12/12 Hospitalist PN: 'Normocytic anemia...Thrombocytopenia in setting of sepsis'
Laboratory Tests
12/09/24 12/10/24 12/12/24
04:51 05:30 08:59
WBC 2.9 L 3.2 L 3.1 L
RBC 3.23 L 3.26 L 3.48 L
Hgb 8.0 L 8.1 L 8.6 L
Plt Count 81 L D 87 L 118 L D
Based on the above, could you clarify in the progress notes, the appropriate diagnosis, if significant, that supports the above abnormalities and additional evaluation, monitoring and/or treatment rendered:
Pancytopenia
Abnormal lab values insignificant
Other
Use of terms such as suspected, likely, concern for, or probable (associated with a specific diagnosis that is being evaluated, monitored, or treated as if it exists) are acceptable and can be coded in the inpatient setting, when documented at the
time of discharge.
Thank you,
Felicity Cope RN, BSN
CDI Specialist
Available via [facility] text
Please use your independent medical judgment in providing your response.
[2024-12-12] MEDS: MAG-TAB SR 84 MG PO (13:13)
--- NOTE | 2024-12-12 13:36 | CM ---
Chart reviewed for d/c planning. Therapy rec skilled rehab, referral placed to [facility] who is able to accept patient once medically stable
Patient will need insurance auth prior to d/c
Cont w/ IV Unasyn
Plan: [facility] when stable and auth approval
--- NOTE | 2024-12-12 16:15 | W.PN.ID1 ---
Date of Service
Date of Service: December 12, 2024
Today's Communication
Transition to Augmentin.
Assessment / Plan
Acute hypoxic respiratory failure
- Improved
Bacteremia
- suspect contaminate
HFpEF acute on chronic
- IV lasix
Pneumonia ; suspected aspiration given he had emesis
Permanent atrial fibrillation
CKD
Prostate cancer
Bladder cancer
Recommendations:
Remains afebrile but leukopenic.
Chest x-ray shows bilateral lower opacities concerns for aspiration pneumonia, although given lack of symptomatology may only be pneumonitis.
1 of 4 blood cultures positive for Streptococcus species from ER draw; suspect contaminant.
Transition to Augmentin 500 mg p.o. twice daily for an additional 7 days.
����������������������������������������������������������
Chief Complaint
-: Pneumonia (Aspiration) and Bacteremia
Subjective / Review of Systems
Review of Systems: No Fever, No Chills and Cough (Slight)
Vital Signs / Physical Exam
Vital Signs
Vital Signs
Temp Pulse Resp BP Pulse Ox
98.1 F 116 20 122/86 96
12/12/24 15:37 12/12/24 15:37 12/12/24 15:37 12/12/24 15:37 12/12/24 15:37
Physical Exam
Constitutional: Comfortable, Chronically Ill and Non-toxic
Eyes: Sclera Anicteric
Cardiovascular: S1/S2; Negative S3/S4
Pulmonary: Non Labored; Negative Wheezes or Rales
Gastrointestinal: Soft, Non Tender and Non Distended
Neurological: Awake and Alert
Psychological: Calm
Lines: Port (Accessed; no surrounding tenderness or erythema)
Objective Data
Lab Data
Lab Results
12/12/24 08:59
12/12/24 04:39
Estimated Creat Clear 36 ml/min 12/12/24 04:39
Total Bilirubin 1.2 mg/dl (0.2-1.3) 12/07/24 21:15
AST 38 U/L (17-59) 12/07/24 21:15
ALT 71 U/L (0-50) H 12/07/24 21:15
Alkaline Phosphatase 225 U/L (38-126) H 12/07/24 21:15
Most recent labs reviewed.
Micro Results:
12/07/24 21:15 Blood Culture - Final
Blood/Venous Enterococcus casseliflavus
Gram Stain - Final
12/07/24 21:15 Blood Culture - Preliminary
Blood/Venous No Growth in 4 days- Final report to follow
12/08/24 17:11 Blood Culture - Preliminary
Blood/Venous No Growth in 72 hours- Final report to follow
12/08/24 16:29 Blood Culture - Preliminary
Blood/Venous No Growth in 72 hours- Final report to follow
12/08/24 03:59 MRSA Screen - Final
Nose No Methicillin Resistant Staphylococcus aureus isolated.
12/07/24 21:20 Influenza Types A & B (FÉLIX) - Final
Nasal Swab Negative for Influenza A & B, NAAT
Negative results must be combined with clinical observations
and patient history.
Nucleic Acid Amplification test (NAAT)performed on the
[employer] platform.
Imaging
12/08/2024 chest x-ray- patchy opacities in bilateral lower lobes.
[2024-12-12] MEDS: LIPITOR 40 MG PO (17:52)
[2024-12-12] MEDS: AUGMENTIN 500 MG/125 MG 1 TABLET PO (20:29)
[2024-12-13 03:38] VITALS: BP 115/62
[2024-12-13 06:00] VITALS: BMI 28.1
[2024-12-13 07:30] VITALS: BP 140/88
--- NOTE | 2024-12-13 08:20 | W.PN.CD ---
Today's Communication / Plan
-
Switch to Lasix PO 80mg daily
Consider CLAY PUDDLER evaluation if not already completed
Impression / Plan
-
Gennaro Whiteside is an 84-year-old man with HFpEF, permanent atrial fibrillation, hypertension, CAD (details unknown) and CKD who presents from rehab after recent admission with cough, emesis, and hypoxia. Cardiology is consulted due acute HF and A
fib with RVR.
Splitter Operator: Dr. Christie Laboy ([place])
HFpEF, acute on chronic, improved s/p IV lasix
-Severe exacerbation requiring telemetry monitoring and IV diuresis which requires intensive monitoring for drug toxicity
-TTE 12/01/2024: LVEF 55-60%, LVH, mild/mod MR, mild/mod TR, small pericardial effusion
-weight down today. Suspect past few days were erroneous. LE edema improving
-switch to PO Lasix 80mg daily
Acute hypoxic respiratory failure: improved
-suspected aspiration, also with one Bcx + for GPC
-Abx per hospitalist
-Consider CLAY PUDDLER evaluation. Coughing with thin liquids this AM
Permanent atrial fibrillation
-rates mildly elevated but he is on max AV deepti blocking therapy
-continue diltiazem 180mg bid; continue metoprolol tartrate 150mg bid (home dose)
-Continue Eliquis 5 mg twice daily
Moderate TR, mild/moderate MR
-diuresis as above
Hypertension
-Managed with rate control agents as above
CAD
-Continue statin
CKD3a
-Creatinine at baseline
-Trend with diuresis
Subjective: Breathing comfortably on NC. Coughing with water. Says breathing and LE edema are improved.
Physical Exam
Vital Signs/Labs
Vital Signs
Temp Pulse Resp BP Pulse Ox
97.4 F 109 21 115/62 94
12/13/24 03:38 12/13/24 03:38 12/13/24 03:38 12/13/24 03:38 12/13/24 03:38
12/12/24 12/13/24 12/14/24
06:59 06:59 06:59
Actual Weight 77.621 kg 74.191 kg
12/12/24 08:59
Magnesium 1.6 mg/dl (1.6-2.3) 12/12/24 04:39
TSH 2.56 uIU/ml (0.47-4.68) 12/07/24 21:15
12/07/24
21:16
[id number] Pept [id number]
Physical Exam
Constitutional: No acute distress and Comfortable
Cardiovascular: Rhythm/rate is irregular, Pedal edema present and Murmur/rub/gallop absent
Respiratory: Crackles Present
Data Reviewed
-
Date of Service: December 13, 2024
Medical Decision Making: Reviewed Test Results, Independent Historian Assessment, Test Interpretation and Review of Case with other Provider
EKG: Tracing Personally Visualized and interpreted
Echo: Report Reviewed by me
X-Ray/CT/US/MRI/NUC/PET: Report Reviewed by me
Labs: Labs Reviewed by me
[2024-12-13] MEDS: PROTONIX 40 MG PO ×2 (09:54→20:01)
[2024-12-13] MEDS: LOPRESSOR 150 MG PO ×2 (09:57→20:00)
[2024-12-13] MEDS: FLOMAX 0.4 MG PO (09:57)
[2024-12-13] MEDS: MAG-TAB SR 84 MG PO (09:57)
[2024-12-13] MEDS: CARDIZEM CD 180 MG PO ×2 (09:58→20:00)
[2024-12-13] MEDS: AUGMENTIN 500 MG/125 MG 1 TABLET PO ×2 (09:58→20:01)
[2024-12-13] MEDS: ELIQUIS 5 MG PO (09:58)
--- NOTE | 2024-12-13 09:58 | W.PN.HOSP.TC ---
Today's Communication/Plan
-
Discharge tomorrow
Assessment / Plan
Assessment / Plan
Patient is a 84-year-old male with past medical history significant for permanent atrial fibrillation, HF, CAD, GERD, hypercholesterolemia, CKD, prostate cancer, bladder cancer and Hx TIA who presented to [facility] ED for evaluation of
hypoxia to 60's following an episode of vomiting throughout the day. EMS stated patient found to be hypoxic in 80s despite supplemental oxygen. Patient with recent hospitalization for acute hypoxic respiratory insufficiency likely 2/2 acute HFpEF
and pulmonary edema, he was also covid +. (negative this admission).
Overnight admission patient had increased oxygen requirements requiring high jean-paul and low blood pressures. 1/4 blood cultures + strep, unclear if contaminant. He has been on IV Unasyn for presumed aspiration pneumonia.
ECHO (12/01/2024): Normal left ventricular systolic function.
Left ventricular ejection fraction is 55-60% .
LVH
Mild to moderate mitral regurgitation.
Mild to moderate tricuspid regurgitation.
Small pericardial effusion.
No prior study available for comparison.
TTE 12/08/24
CONCLUSIONS
Follow up study in setting of bacteremia.
Low normal left ventricular systolic function. LVEF is 50%.
Mild/moderate mitral regurgitation.
Aortic sclerosis without stenosis.
Enlarged right ventricular size. Mildly reduced right ventricular systolic
function.
Abnormal (paradoxical) septal motion consistent with conduction abnormality.
Moderate tricuspid regurgitation. Normal PASP.
No vegetation within limits of TTE.
Compared to 12/01/24: RV appears similar when images directly compared. TR
looks moderate, compared to mild/moderate previously. LVEF is now low normal,
but A fib rates are higher.
Acute Hypoxic Respiratory Failure
-Due to aspiration pneumonia and heart failure
-Currently requiring 4 L of oxygen, wean as tolerated
Heart Failure preserved Ejection Fraction, acute exacerbation
-Trop negative, admitted to IMU, now transferred to telemetry
-s/p IV diuresis; changed to oral on 12/11 but patient with weight gain, remains overloaded. Refused labs yesterday morning, now has been accepting therefore OK to resume IV lasix
-repeat TTE from 12/08 (for bacteremia) - above
-Appreciate cardiology input, IV Lasix changed to Lasix 80 mg p.o. daily 12/13
Aspiration Pneumonia
Sepsis 2/2 Above
09/24 Blood cultures gram + cocci in pairs and chains. Strep species
-IV Unasyn initiated on 12/08
-IV Vanc started after repeat blood cultures - d/c'd
-TTE without vegetation.
-Appreciate ID input, recommend Augmentin 500 mg twice daily for an additional 7 days
-Consult SPL
Permanent Atrial Fibrillation
-patient is on Metoprolol 150mg PO BID and Diltiazem 360mg PO QD - they were started at lower dose in setting of sepsis
-Metop increased to home dose; continue Dilt 180 BID
-continue FINANCE ANALYST Eliquis
-appreciate Cardiology
Hx Coronary Artery Disease
-FINANCE ANALYST Eliquis/Statin
Essential HTN
HLD - FINANCE ANALYST Statin
Normocytic anemia
-Hg stable > 8
-monitor daily
Thrombocytopenia in setting of sepsis
-resolving
GERD - FINANCE ANALYST Protonix
BPH - FINANCE ANALYST Flomax
DVT prophylaxis�Eliquis
DNR
Dispo - PT rec SNF
Total time spent to see the patient on the floor, examine the patient, review data and lab results, discuss treatment plan with patient, nursing staff around 41 minutes.
Physical Exam
General: No acute distress
HEENT: Normocephalic, Atraumatic, EOMI, MMM
Respiratory: Left basilar crackles
Cardiac: Normal S1/S2, Regular Rate and Rhythm
GI: Soft, Nontender, Nondistended, Normal Bowel Sounds
Extremities: No Clubbing, Cyanosis
Neuro: Nonfocal/Grossly Intact
Psych: Calm, Cooperative
Derm: No Visible lesions
Anticipated Discharge: Within 24 hours
Subjective/Interval History
-
Date of Service: December 13, 2024
Patient reports not feeling well today. He complains of shortness of breath, cough. No fever, pain.
Objective Data
-
Labs:
Laboratory Results
12/13/24
09:35
Sodium Pending
Potassium Pending
Chloride Pending
Carbon Dioxide Pending
BUN Pending
Creatinine Pending
Glucose Pending
Calcium Pending
Vital Signs:
Vital Signs
Temp Pulse Resp BP Pulse Ox
97.9 F 118 18 140/88 93
12/13/24 07:30 12/13/24 07:30 12/13/24 07:30 12/13/24 07:30 12/13/24 07:30
I&O
12/12/24 12/13/24 12/14/24
06:59 06:59 06:59
Intake Total 360 / 360 720 / 720
Output Total 775 / 775 700 / 700
Balance -415 / -415
[2024-12-13 10:31] LABS: Blood Urea Nitrogen 29 mg/dl (9-20); Calcium 8.2 mg/dl (8.4-10.2); Carbon Dioxide 33 mmol/L (22-30); Chloride 100 mmol/L (98-107); Estimated Creatinine Clearance 39 ml/min; Glucose 180 mg/dl (70-99); Magnesium 1.6 mg/dl (1.6-2.3); Potassium 3.8 mmol/L (3.5-5.1); Sodium 139 mmol/L (135-145); eGFR > 60.00
[2024-12-13] MEDS: LASIX 80 MG PO (10:35)
[2024-12-13] MEDS: KCL 40 MEQ PO (10:35)
[2024-12-13] MEDS: LASIX IV (10:41)
[2024-12-13 11:16] VITALS: BP 117/59
--- NOTE | 2024-12-13 13:32 | PTOTSP ---
ST Acute Care Evaluation
Pt currently presents with oropharyngeal swallowing parameters that are WFL, per bedside assessment.
Recommendations:
- Continue with regular solids, thin liquids, meds as tolerated.
- Continue with general aspiration and reflux precautions.
- MANAGER INTEL to sign off, as no skilled dysphagia services are indicated at this time.
[2024-12-13 15:23] VITALS: BP 124/73
--- NOTE | 2024-12-13 16:37 | W.PN.ID1 ---
Date of Service
Date of Service: December 13, 2024
Today's Communication
Continue Augmentin.
Assessment / Plan
Acute hypoxic respiratory failure
- Improved
Bacteremia
- suspect contaminate
HFpEF acute on chronic
- IV lasix
Pneumonia ; suspected aspiration given he had emesis
Permanent atrial fibrillation
CKD
Prostate cancer
Bladder cancer
Recommendations:
Remains afebrile but leukopenic.
Chest x-ray shows bilateral lower opacities concerns for aspiration pneumonia, although given lack of symptomatology may only be pneumonitis.
1 of 4 blood cultures positive for Streptococcus species from ER draw; suspect contaminant.
Continue Augmentin 500 mg p.o. twice daily for an additional 6 days.
����������������������������������������������������������
Chief Complaint
-: Pneumonia (Aspiration) and Bacteremia
Subjective / Review of Systems
Review of Systems: No Fever
Vital Signs / Physical Exam
Vital Signs
Vital Signs
Temp Pulse Resp BP Pulse Ox
98.8 F 113 20 124/73 98
12/13/24 15:23 12/13/24 15:23 12/13/24 15:23 12/13/24 15:23 12/13/24 16:05
Physical Exam
Constitutional: Comfortable and Chronically Ill
Eyes: Sclera Anicteric
Pulmonary: Non Labored
Neurological: Awake and Alert
Psychological: Calm
Objective Data
Lab Data
Lab Results
12/12/24 08:59
12/13/24 09:35
Estimated Creat Clear 39 ml/min 12/13/24 09:35
Total Bilirubin 1.2 mg/dl (0.2-1.3) 12/07/24 21:15
AST 38 U/L (17-59) 12/07/24 21:15
ALT 71 U/L (0-50) H 12/07/24 21:15
Alkaline Phosphatase 225 U/L (38-126) H 12/07/24 21:15
Most recent labs reviewed.
Micro Results:
12/07/24 21:15 Blood Culture - Final
Blood/Venous No Growth - Final Report
12/08/24 17:11 Blood Culture - Preliminary
Blood/Venous No Growth in 4 days- Final report to follow
12/08/24 16:29 Blood Culture - Preliminary
Blood/Venous No Growth in 4 days- Final report to follow
12/07/24 21:15 Blood Culture - Final
Blood/Venous Enterococcus casseliflavus
Gram Stain - Final
12/08/24 03:59 MRSA Screen - Final
Nose No Methicillin Resistant Staphylococcus aureus isolated.
12/07/24 21:20 Influenza Types A & B (FÉLIX) - Final
Nasal Swab Negative for Influenza A & B, NAAT
Negative results must be combined with clinical observations
and patient history.
Nucleic Acid Amplification test (NAAT)performed on the
[employer] platform.
Imaging
12/08/2024 chest x-ray- patchy opacities in bilateral lower lobes.
[2024-12-13 16:45] VITALS: BP 123/76; PULSE 107; O2SAT 92
[2024-12-13] MEDS: LIPITOR 40 MG PO (17:46)
[2024-12-13] MEDS: ELIQUIS PO (18:47)
[2024-12-13 23:00] VITALS: BP 111/67
[2024-12-14] VITALS (7 sets, daily range): BP systolic 125–157; BP diastolic 71–103; PULSE 93; O2SAT 93; BMI 28.4
--- NOTE | 2024-12-14 08:08 | W.PN.CD ---
Today's Communication / Plan
-
feels well eating breakfast. On O2
Back on oral diuretic
Continue to current therapy
consider follow up CXR
Impression / Plan
-
Gennaro Whiteside is an 84-year-old man with HFpEF, permanent atrial fibrillation, hypertension, CAD (details unknown) and CKD who presents from rehab after recent admission with cough, emesis, and hypoxia. Cardiology is consulted due acute HF and A
fib with RVR.
Manager Security And Safety: Dr. Christie Laboy ([place])
HFpEF, acute on chronic, improved s/p IV lasix
- trasntioned to oral lasix
-TTE 12/01/2024: LVEF 55-60%, LVH, mild/mod MR, mild/mod TR, small pericardial effusion
-switch to PO Lasix 80mg daily
Acute hypoxic respiratory failure: improved
-suspected aspiration, also with one Bcx + for GPC
-Abx per hospitalist
-Consider PAPER PATTERN FOLDER evaluation. Coughing with thin liquids this AM
Permanent atrial fibrillation
-rates mildly elevated but he is on max AV deepti blocking therapy
-continue diltiazem 180mg bid; continue metoprolol tartrate 150mg bid (home dose)
-Continue Eliquis 5 mg twice daily
Moderate TR, mild/moderate MR
-diuresis as above
Hypertension
-Managed with rate control agents as above
CAD
-Continue statin
CKD3a
-Creatinine at baseline
-Trend with diuresis
Subjective: Breathing comfortably on NC. Coughing with water. Says breathing and LE edema are improved.
Physical Exam
Vital Signs/Labs
Vital Signs
Temp Pulse Resp BP Pulse Ox
97.7 F 103 24 126/80 91
12/14/24 03:13 12/14/24 03:13 12/14/24 03:13 12/14/24 03:13 12/14/24 03:13
12/13/24 12/14/24 12/15/24
06:59 06:59 06:59
Actual Weight 74.191 kg 74.871 kg
12/12/24 08:59
Magnesium 1.6 mg/dl (1.6-2.3) 12/13/24 09:35
TSH 2.56 uIU/ml (0.47-4.68) 12/07/24 21:15
12/07/24
21:16
[id number] Pept [id number]
Physical Exam
Constitutional: No acute distress
Cardiovascular: Rhythm/rate is irregular
Respiratory: Wheeze Absent, Rhonchi Absent and Other (decreased left base with rare crackle)
GI: Soft
Neuro/Psych: Alert
Data Reviewed
-
Date of Service: December 14, 2024
Medical Decision Making: Reviewed Test Results
Medical Tests (PFT, Pathology etc): Report Reviewed by me
Labs: Labs Reviewed by me
[2024-12-14] MEDS: AUGMENTIN 500 MG/125 MG 1 TABLET PO ×2 (08:27→21:02)
[2024-12-14] MEDS: PROTONIX 40 MG PO ×2 (08:27→21:02)
[2024-12-14] MEDS: LOPRESSOR 150 MG PO ×2 (08:27→21:02)
[2024-12-14] MEDS: MAG-TAB SR 84 MG PO (08:30)
[2024-12-14] MEDS: FLOMAX 0.4 MG PO (08:31)
[2024-12-14] MEDS: CARDIZEM CD 180 MG PO ×2 (08:31→21:01)
[2024-12-14] MEDS: LASIX 80 MG PO (08:31)
[2024-12-14] MEDS: KCL 40 MEQ PO (08:32)
[2024-12-14] MEDS: FLUSH (NSS) 1 FLUSH IV (08:32)
--- NOTE | 2024-12-14 09:23 | W.PN.HOSP.TC ---
Today's Communication/Plan
-
Continue holding eliquis
Poss resume tomorrow am if hematuria resolves
Assessment / Plan
Assessment / Plan
Patient is a 84-year-old male with past medical history significant for permanent atrial fibrillation, HF, CAD, GERD, hypercholesterolemia, CKD, prostate cancer, bladder cancer and Hx TIA who presented to [facility] ED for evaluation of
hypoxia to 60's following an episode of vomiting throughout the day. EMS stated patient found to be hypoxic in 80s despite supplemental oxygen. Patient with recent hospitalization for acute hypoxic respiratory insufficiency likely 2/2 acute HFpEF
and pulmonary edema, he was also covid +. (negative this admission).
Overnight admission patient had increased oxygen requirements requiring high jean-paul and low blood pressures. 1/ blood cultures + strep, unclear if contaminant. He has been on IV Unasyn for presumed aspiration pneumonia.
Acute Hypoxic Respiratory Failure
-Due to aspiration pneumonia and heart failure
-Currently requiring 2 L of oxygen, down from 4, wean as tolerated
Heart Failure preserved Ejection Fraction, acute exacerbation
-Trop negative, admitted to IMU, now transferred to telemetry
-s/p IV diuresis; changed to oral on 12/11 but patient with weight gain, remains overloaded. Refused labs yesterday morning, now has been accepting therefore OK to resume IV lasix
-repeat TTE from 12/08 (for bacteremia) - above
-Appreciate cardiology input, IV Lasix changed to Lasix 80 mg p.o. daily 12/13
Aspiration Pneumonia
Sepsis 2/2 Above
1/4 Blood cultures gram + cocci in pairs and chains. Strep species
-IV Unasyn initiated on 12/08
-IV Vanc started after repeat blood cultures - d/c'd
-TTE without vegetation.
-Appreciate ID input, recommend Augmentin 500 mg twice daily for an additional 7 days
-Seen by SPL, cleared for regular diet with thin liquids
Permanent Atrial Fibrillation
-patient is on Metoprolol 150mg PO BID and Diltiazem 360mg PO QD - they were started at lower dose in setting of sepsis
-Metop increased to home dose; continue Dilt 180 BID
-Hold Eliquis due to hematuria
-appreciate Cardiology
Acute hematuria
-Son reports patient has been having intermittent hematuria for the last 2 months
-Appreciate urology input, differential diagnosis include radiation-induced vs. recurrence of bladder cancer
-Discussed with son, who states patient recently followed up with his cancer doctor at [place], no concern for recurrence of bladder cancer
-Hold Eliquis for now, monitor hemoglobin, check bladder ultrasound
Hx Coronary Artery Disease
-BLOCK AND CASE MAKER Statin
Essential HTN
HLD - BLOCK AND CASE MAKER Statin
Normocytic anemia
-Hg stable > 8
-monitor daily
Thrombocytopenia in setting of sepsis
-resolving
GERD - BLOCK AND CASE MAKER Protonix
BPH - BLOCK AND CASE MAKER Flomax
DVT prophylaxis�Hold Eliquis due to hematuria
DNR
Dispo - PT rec SNF
Updated son 12/14
Total time spent to see the patient on the floor, examine the patient, review data and lab results, discuss treatment plan with patient, nursing staff around 52 minutes.
Physical Exam
General: No acute distress
HEENT: Normocephalic, Atraumatic, EOMI, MMM
Respiratory: Left basilar crackles
Cardiac: Normal S1/S2, Regular Rate and Rhythm
GI: Soft, Nontender, Nondistended, Normal Bowel Sounds
Extremities: No Clubbing, Cyanosis
Neuro: Nonfocal/Grossly Intact
Psych: Calm, Cooperative
Anticipated Discharge: 24 - 48 hours
Subjective/Interval History
-
Date of Service: December 14, 2024
Still short of breath. Reports his breathing is worse today. Had hematuria yesterday and this morning. Eliquis held since last night. Hematuria improving. No fever, no vomiting.
Objective Data
-
Labs:
Laboratory Results
12/14/24
09:03
WBC Pending
Hgb Pending
Hct Pending
Plt Count Pending
Sodium Pending
Potassium Pending
Chloride Pending
Carbon Dioxide Pending
BUN Pending
Creatinine Pending
Glucose Pending
Calcium Pending
Vital Signs:
Vital Signs
Temp Pulse Resp BP Pulse Ox
97.4 F 112 20 140/90 94
12/14/24 07:40 12/14/24 08:31 12/14/24 07:40 12/14/24 08:31 12/14/24 08:26
I&O
12/13/24 12/14/24 12/15/24
06:59 06:59 06:59
Intake Total 720 / 720 480 / 480
Output Total 700 / 700 795 / 795
Balance -315 / -315
[2024-12-14 09:41] LABS: Hematocrit 30.6 % (39.0-52.0); Hemoglobin 9.4 g/dL (13.0-18.0); Mean Corp Hgb Conc. 30.7 g/dL (33.0-37.0); Mean Corpuscular Hgb 24.7 pg (27.0-31.0); Mean Corpuscular Volume 80.5 fL (80.0-94.0); Mean Platelet Volume 11.3 fL (7.4-10.4); Platelet Count 170 10^3/uL (130-400); Red Cell Dist. Width 17.2 % (11.5-14.5); White Blood Cell Count 3.5 10^3/uL (4.8-10.8)
--- NOTE | 2024-12-14 09:47 | W.PN.URO.CBU ---
Today's Communication / Plan
-
MEASURE POST VOID RESIDUAL PLEASE TIGE TEXT DR KNOWLES WITH RESULTS
Assessment / Plan
-
PT WITH SOB AND HEMATURIA FROM COMBINATION BLADDER CANCER AND RADIATION CYSTITIS UNMASKED BY ELIQUIS WILL MONITOR FOR RETENTION OF URINE BUT WILL SEE [facility] IN FOLLOW UP UNLESS RETENTION OF URINE HERE WILL FOLLOW
Diagnosis
-
Date of Service: December 14, 2024
-
Patient Diagnosis:
hematuria on eliquis for a fib admitted with sob H/o seeds for prostaTe cancer years ago and radiation and chemo for muscle invasive bladder cancer now at [facility]
Post Op Day:
Subjective
-
FEELS LIKE EMPTIES BLADDER NO DYSURUA
Objective
-
Vital Signs
Temp Pulse Resp BP Pulse Ox
97.4 F 112 20 140/90 94
12/14/24 07:40 12/14/24 08:31 12/14/24 07:40 12/14/24 08:31 12/14/24 08:26
Intake and Output
12/13/24 12/14/24 12/15/24
06:59 06:59 06:59
Intake Total 720 / 720 480 / 480
Output Total 700 / 700 795 / 795
Balance 20 / 20 -315 / -315
Intake:
Oral fluids 720 / 720 480 / 480
Output:
Urine, Voided 700 / 700 795 / 795
Other:
Number of approximated MODERATE 2
amounts of urine
How many times incontinent 1
MODERATE amount urine
Laboratory Results
12/14/24 09:03
Review of Systems
-
: Bleeding
Physical Exam
-
General - well developed, well nourished, no acute distress
Chest - clear bilaterallySOB
Abdomen - soft, non-tender, positive bowel sounds, no CVAT, no incisional pain or distention
Genitalia - normal
Rectal - normal
Skin - warm & dry with no rash
Neuro - AOx3, no motor deficits
Extremities - no clubbing, no cyanosis, no edema
Incision - clean, dry
Dressing - clean, dry, intact
Care Review
Data Reviewed
Discussed with: Hospitalist, Nursing and Family (CALLED [facility])
[2024-12-14 10:33] LABS: Urine Albumin 3+ (Neg - Trace); Urine Bilirubin Negative (Negative); Urine Character Cloudy (Clear); Urine Color Red; Urine Glucose Negative (Negative); Urine Ketone Negative (Negative); Urine Leukocyte 3+ (Negative); Urine Nitrite Negative (Negative); Urine Occult Blood 4+ (Negative); Urine Specific Gravity 1.005 (<1.030); Urine Urobilinogen Negative (Neg - 1+)
--- NOTE | 2024-12-14 10:37 | CM ---
Chart reviewed. Patient cont to be recommended for skilled rehab w/ some progress. [facility] accepted patient when medically ready.
Discussed w/ hospitalist, patient plan for d/c was today, however, patient is now having hematuria and will remain in hospital. Depending on urology recs and hematuria, poss can d/c Thursday.
Updated [facility] admissions
Patient will need insurance auth
Plan: [facility] when stable and auth approval
[2024-12-14 10:43] LABS: Blood Urea Nitrogen 32 mg/dl (9-20); Calcium 8.4 mg/dl (8.4-10.2); Carbon Dioxide 31 mmol/L (22-30); Chloride 100 mmol/L (98-107); Estimated Creatinine Clearance 36 ml/min; Glucose 208 mg/dl (70-99); Potassium 4.3 mmol/L (3.5-5.1); Sodium 138 mmol/L (135-145); eGFR 54.51
[2024-12-14 11:52] LABS: Urine Amorphous Seen; Urine Urothelial Cell 0-2 /LPF (FEW)
[2024-12-14 11:54] LABS: Urine Red Blood Cell >100 /HPF (0-2); Urine White Cell >100 /HPF (0-5)
--- NOTE | 2024-12-14 15:48 | W.PN.ID1 ---
Date of Service
Date of Service: December 14, 2024
Today's Communication
Sign off.
Assessment / Plan
Acute hypoxic respiratory failure
- Improved
Bacteremia
- suspect contaminate
HFpEF acute on chronic
- IV lasix
Pneumonia ; suspected aspiration given he had emesis
Permanent atrial fibrillation
CKD
Prostate cancer
Bladder cancer
Recommendations:
Remains afebrile but leukopenic.
Chest x-ray shows bilateral lower opacities concerns for aspiration pneumonia, although given lack of symptomatology may only be pneumonitis.
1 of 4 blood cultures positive for Streptococcus species from ER draw; suspect contaminant.
Continue Augmentin 500 mg p.o. twice daily for an additional 5 days.
Little more to offer from a Infectious Disease standpoint.
Will see again at your request.
����������������������������������������������������������
Chief Complaint
-: Pneumonia (Aspiration) and Bacteremia
Subjective / Review of Systems
Review of Systems: No Fever, No Chills and No Cough
Vital Signs / Physical Exam
Vital Signs
Vital Signs
Temp Pulse Resp BP Pulse Ox
97.8 F 104 24 132/77 93
12/14/24 11:20 12/14/24 11:20 12/14/24 11:20 12/14/24 11:20 12/14/24 11:20
Physical Exam
Constitutional: Comfortable and Chronically Ill
Eyes: Sclera Anicteric
Pulmonary: Non Labored; Negative Wheezes
Extremities: Negative Edema
Neurological: Awake and Alert
Psychological: Calm
Objective Data
Lab Data
Lab Results
12/14/24 09:03
12/14/24 09:03
Estimated Creat Clear 36 ml/min 12/14/24 09:03
Total Bilirubin 1.2 mg/dl (0.2-1.3) 12/07/24 21:15
AST 38 U/L (17-59) 12/07/24 21:15
ALT 71 U/L (0-50) H 12/07/24 21:15
Alkaline Phosphatase 225 U/L (38-126) H 12/07/24 21:15
Most recent labs reviewed.
Micro Results:
12/14/24 09:49 Urine Culture - Pending
Urine
12/08/24 17:11 Blood Culture - Final
Blood/Venous No Growth - Final Report
12/08/24 16:29 Blood Culture - Final
Blood/Venous No Growth - Final Report
12/07/24 21:15 Blood Culture - Final
Blood/Venous No Growth - Final Report
12/07/24 21:15 Blood Culture - Final
Blood/Venous Enterococcus casseliflavus
Gram Stain - Final
12/08/24 03:59 MRSA Screen - Final
Nose No Methicillin Resistant Staphylococcus aureus isolated.
12/07/24 21:20 Influenza Types A & B (FÉLIX) - Final
Nasal Swab Negative for Influenza A & B, NAAT
Negative results must be combined with clinical observations
and patient history.
Nucleic Acid Amplification test (NAAT)performed on the
[employer] platform.
Imaging
12/08/2024 chest x-ray- patchy opacities in bilateral lower lobes.
--- NOTE | 2024-12-14 16:29 | PTCARENOTE ---
Pt AAO x3, TORIBIO; OOB to chair/ambulates in room with assist x1/walker, jim well. VSS. Telemetry:A fib to 100's, no c/o CP/palpitations. On nc 2 lpm- pulseox 95%, pt with (+) MARTINEZ; occ dry cough. Abd soft, rounded, jim PO well. Voids small amts of
sl pink-tinged to clear yellow urine. Resting in bed at present. Will continue to monitor.
--- NOTE | 2024-12-14 16:50 | W.PN.UPDATE ---
Update Note
Progress Note Update
pt had ct scan month ago withno gu pathology ie stomnes tumors etc. 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 If possible try ad limit eliquis
[2024-12-14] MEDS: LIPITOR 40 MG PO (17:27)
[2024-12-15 03:22] VITALS: BP 127/74
[2024-12-15 05:37] VITALS: BMI 28.2
[2024-12-15 07:17] LABS: Hematocrit 31.2 % (39.0-52.0); Hemoglobin 9.5 g/dL (13.0-18.0); Mean Corp Hgb Conc. 30.4 g/dL (33.0-37.0); Mean Corpuscular Hgb 24.6 pg (27.0-31.0); Mean Corpuscular Volume 80.8 fL (80.0-94.0); Mean Platelet Volume 10.9 fL (7.4-10.4); Platelet Count 204 10^3/uL (130-400); Red Blood Cell Count 3.86 10^6/uL (4.70-6.10); Red Cell Dist. Width 17.4 % (11.5-14.5)
[2024-12-15 07:52] LABS: Blood Urea Nitrogen 32 mg/dl (9-20); Calcium 8.8 mg/dl (8.4-10.2); Carbon Dioxide 37 mmol/L (22-30); Chloride 99 mmol/L (98-107); Estimated Creatinine Clearance 36 ml/min; Glucose 170 mg/dl (70-99); Magnesium 1.7 mg/dl (1.6-2.3); Phosphorus 3.9 mg/dl (2.5-4.5); Potassium 4.5 mmol/L (3.5-5.1); Sodium 140 mmol/L (135-145); eGFR 54.51
[2024-12-15] MEDS: KCL 40 MEQ PO (07:58)
[2024-12-15] MEDS: LASIX 80 MG PO (07:58)
[2024-12-15] MEDS: LOPRESSOR 150 MG PO (07:58)
[2024-12-15] MEDS: CARDIZEM CD 180 MG PO ×2 (07:58→21:14)
[2024-12-15] MEDS: FLOMAX 0.4 MG PO (07:58)
[2024-12-15] MEDS: MAG-TAB SR 84 MG PO (07:58)
[2024-12-15] MEDS: PROTONIX 40 MG PO ×2 (07:58→21:07)
[2024-12-15] MEDS: AUGMENTIN 500 MG/125 MG 1 TABLET PO ×2 (07:59→21:07)
[2024-12-15 08:00] VITALS: BP 142/91
--- NOTE | 2024-12-15 08:37 | W.PN.URO.CBU ---
Today's Communication / Plan
-
STABLE URIEN CLEAR ENCOURAGE FLUIDS
Assessment / Plan
-
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
Diagnosis
-
Date of Service: December 15, 2024
-
Patient Diagnosis:
Post Op Day:
Patient Diagnosis:
hematuria on eliquis for a fib admitted with sob H/o seeds for prostaTe cancer years ago and radiation and chemo for muscle invasive bladder cancer now at [facility]
Post Op Day:
Subjective
-
no more hematuria no gu sxs
Objective
-
Vital Signs
Temp Pulse Resp BP Pulse Ox
98 F 96 20 142/91 97
12/15/24 08:00 12/15/24 08:00 12/15/24 08:00 12/15/24 08:00 12/15/24 08:00
Intake and Output
12/14/24 12/15/24 12/16/24
06:59 06:59 06:59
Intake Total 480 / 480 1410 / 1410
Output Total 795 / 795 1425 / 1425
Balance -315 / -315 -15 / -15
Intake:
Oral fluids 480 / 480 1410 / 1410
Output:
Urine, Voided 795 / 795 1425 / 1425
Other:
Number of approximated MODERATE 1
amounts of urine
Laboratory Results
12/15/24 06:44
12/15/24 06:44
Review of Systems
-
: No Symptoms
Physical Exam
-
General - well developed, well nourished, no acute distress
Chest - clear bilaterally
Abdomen - soft, non-tender, positive bowel sounds, no CVAT, no incisional pain or distention
Genitalia - normal
Rectal - normal
Skin - warm & dry with no rash
Neuro - AOx3, no motor deficits
Extremities - no clubbing, no cyanosis, no edema
Incision - clean, dry
Dressing - clean, dry, intact
Care Review
Data Reviewed
Discussed with: Hospitalist and Family
--- NOTE | 2024-12-15 08:44 | W.PN.HOSP.TC ---
Today's Communication/Plan
-
Resume Eliquis
Repeat chest x-ray
Hopeful for discharge tomorrow
Assessment / Plan
Assessment / Plan
Patient is a 84-year-old male with past medical history significant for permanent atrial fibrillation, HF, CAD, GERD, hypercholesterolemia, CKD, prostate cancer, bladder cancer and Hx TIA who presented to [facility] ED for evaluation of
hypoxia to 60's following an episode of vomiting throughout the day. EMS stated patient found to be hypoxic in 80s despite supplemental oxygen. Patient with recent hospitalization for acute hypoxic respiratory insufficiency likely 2/2 acute HFpEF
and pulmonary edema, he was also covid +. (negative this admission).
Overnight admission patient had increased oxygen requirements requiring high jean-paul and low blood pressures. 1/4 blood cultures + strep, unclear if contaminant. He has been on IV Unasyn for presumed aspiration pneumonia.
Acute Hypoxic Respiratory Failure
-Due to aspiration pneumonia and heart failure
-Currently requiring 2 L of oxygen, down from 4, wean as tolerated
Heart Failure preserved Ejection Fraction, acute exacerbation
-Trop negative, admitted to IMU, now transferred to telemetry
-s/p IV diuresis; changed to oral on 12/11 but patient with weight gain, remains overloaded. Refused labs yesterday morning, now has been accepting therefore OK to resume IV lasix
-repeat TTE from 12/08 (for bacteremia) - above
-Appreciate cardiology input, IV Lasix changed to Lasix 80 mg p.o. daily 12/13
-Repeat chest x-ray, repeat BNP
Aspiration Pneumonia
Sepsis 2/2 Above
1/4 Blood cultures gram + cocci in pairs and chains. Strep species
-IV Unasyn initiated on 12/08
-IV Vanc started after repeat blood cultures - d/c'd
-TTE without vegetation.
-Appreciate ID input, recommend Augmentin 500 mg twice daily for an additional 7 days
-Seen by SPL, cleared for regular diet with thin liquids
Permanent Atrial Fibrillation
-patient is on Metoprolol 150mg PO BID and Diltiazem 360mg PO QD - they were started at lower dose in setting of sepsis
-Metop increased to home dose; continue Dilt 180 BID
-12/15�resume Eliquis
Acute hematuria
-Son reports patient has been having intermittent hematuria for the last 2 months
-Appreciate urology input, differential diagnosis include radiation-induced vs. recurrence of bladder cancer
-Discussed with son, who states patient recently followed up with his cancer doctor at [place], no concern for recurrence of bladder cancer
-12/15, hematuria resolved, resume Eliquis
Hx Coronary Artery Disease
-ELECTRIC ORGAN INSPECTOR AND REPAIRER Statin
Essential HTN
HLD - ELECTRIC ORGAN INSPECTOR AND REPAIRER Statin
Normocytic anemia
-Hg stable > 8
-monitor daily
Thrombocytopenia in setting of sepsis
-resolving
GERD - ELECTRIC ORGAN INSPECTOR AND REPAIRER Protonix
BPH - ELECTRIC ORGAN INSPECTOR AND REPAIRER Flomax
DVT prophylaxis�Hold Eliquis due to hematuria
DNR
Dispo - PT rec SNF
Updated son 12/14
Total time spent to see the patient on the floor, examine the patient, review data and lab results, discuss treatment plan with patient, nursing staff around 51 minutes.
Physical Exam
General: No acute distress
HEENT: Normocephalic, Atraumatic, EOMI, MMM
Respiratory: Left basilar crackles
Cardiac: Normal S1/S2, Regular Rate and Rhythm
GI: Soft, Nontender, Nondistended, Normal Bowel Sounds
Extremities: No Clubbing, Cyanosis
Bilateral lower extremity edema noted
Neuro: Nonfocal/Grossly Intact
Psych: Calm, Cooperative
Anticipated Discharge: Within 24 hours
Subjective/Interval History
-
Date of Service: December 15, 2024
Hematuria resolved. Still reports being short of breath, overall improved. No fever, no vomiting.
Objective Data
-
Labs:
Laboratory Results
12/15/24
06:44
WBC 4.0 L
Hgb 9.5 L
Hct 31.2 L
Plt Count 204
Sodium 140
Potassium 4.5
Chloride 99
Carbon Dioxide 37 H
BUN 32 H
Creatinine 1.3
Glucose 170 H
Calcium 8.8
Vital Signs:
Vital Signs
Temp Pulse Resp BP Pulse Ox
98 F 96 20 142/91 97
12/15/24 08:00 12/15/24 08:00 12/15/24 08:00 12/15/24 08:00 12/15/24 08:00
I&O
12/14/24 12/15/24 12/16/24
06:59 06:59 06:59
Intake Total 480 / 480 1410 / 1410
Output Total 795 / 795 1425 / 1425
Balance -315 / -315 -15 / -15
[2024-12-15] MEDS: ELIQUIS 5 MG PO ×2 (09:19→21:06)
--- NOTE | 2024-12-15 10:19 | W.PN.CD ---
Today's Communication / Plan
-
-Continue Lasix 80 mg PO daily.
-Will increase metoprolol tartrate to 200 mg BID.
-Continue diltiazem CD 180 mg BID.
-Eliquis resumed.
-No further cardiac recommendations at this time; can follow-up with his primary Programmer as an outpatient.
Impression / Plan
-
Gennaro Whiteside is an 84-year-old man with HFpEF, permanent atrial fibrillation, hypertension, CAD (details unknown) and CKD who presents from rehab after recent admission with cough, emesis, and hypoxia. Cardiology is consulted due acute HF and A
fib with RVR.
Programmer: Dr. Christie Laboy ([place])
HFpEF, acute on chronic, improved s/p IV lasix
-Continue Lasix 80 mg PO daily.
-TTE 12/01/2024: LVEF 55-60%, LVH, mild/mod MR, mild/mod TR, small pericardial effusion
Acute hypoxic respiratory failure: improved
-suspected aspiration, also with one Bcx + for GPC
-Abx per hospitalist
Permanent atrial fibrillation
-Rates mildly elevated.
-Will increase metoprolol tartrate to 200 mg BID.
-Continue diltiazem CD 180 mg BID.
-Eliquis resumed.
Moderate TR, mild/moderate MR
-Relatively stable.
Hypertension
-Fairly controlled.
CAD
-Continue statin
CKD3a
-Creatinine at baseline
-Trend with diuresis
Physical Exam
Vital Signs/Labs
Vital Signs
Temp Pulse Resp BP Pulse Ox
98 F 96 20 142/91 97
12/15/24 08:00 12/15/24 08:00 12/15/24 08:00 12/15/24 08:00 12/15/24 08:00
12/14/24 12/15/24 12/16/24
06:59 06:59 06:59
Actual Weight 74.871 kg 74.435 kg
12/15/24 06:44
12/15/24 06:44
Magnesium 1.7 mg/dl (1.6-2.3) 12/15/24 06:44
TSH 2.56 uIU/ml (0.47-4.68) 12/07/24 21:15
12/07/24
21:16
Ota-X-Wkoponjebxc Pept [id number]
Physical Exam
Constitutional: No acute distress and Comfortable
EENT: Anicteric
Cardiovascular: Systolic murmur absent, Rhythm/rate is irregular, Pedal edema present (1-2+) and S1S2 is normal
Respiratory: Respiratory effort normal and Lungs clear to auscul.
GI: Soft
Neuro/Psych: AO x 3
Other: Skin (Warm, dry)
Data Reviewed
-
Date of Service: December 15, 2024
EKG: Tracing Personally Visualized and interpreted (Atrial fibrillation at 110s)
Labs: Labs Reviewed by me
[2024-12-15 11:26] VITALS: BP 136/92
[2024-12-15] MEDS: LOPRESSOR 50 MG PO (11:28)
--- NOTE | 2024-12-15 13:43 | PN.CDI ---
CDI
- -
CDI:
Physician Documentation Request
Admit Date: 12/07/24 23:51
Dear Doctor Do,
Patient admitted with sepsis.
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
12/14 Urology Update Note: 'If possible try ad limit eliquis'
12/15 Hospitalist PN: '12/15, hematuria resolved, resume Eliquis'
Please clarify the relationship between these conditions:
Yes, hematuria is related to/associated with/exacerbated by Eliquis
No, hematuria is not related to/associated with/exacerbated by Eliquis
Unable to determine
Use of terms such as suspected, likely, concern for, or probable (associated with a specific diagnosis that is being evaluated, monitored, or treated as if it exists) are acceptable and can be coded in the inpatient setting, when documented at the
time of discharge.
Thank you,
Felicity Cope RN, BSN
CDI Specialist
Available via [place] text
Please use your independent medical judgment in providing your response.
[2024-12-15 15:53] VITALS: BP 133/82
[2024-12-15 16:02] VITALS: BP 119/67; PULSE 104
[2024-12-15] MEDS: LIPITOR 40 MG PO (17:51)
[2024-12-15] MEDS: LOPRESSOR 200 MG PO (21:13)
[2024-12-15 23:00] VITALS: BP 124/70
[2024-12-16] VITALS (9 sets, daily range): BP systolic 103–126; BP diastolic 70–87; PULSE 88–100; O2SAT 97; BMI 27.6
[2024-12-16] MEDS: ROBITUSSIN 100 MG PO ×3 (01:06→20:53)
--- NOTE | 2024-12-16 07:36 | W.PN.HOSP.TC ---
Today's Communication/Plan
-
see bold
Assessment / Plan
Assessment / Plan
Patient is a 84-year-old male with past medical history significant for permanent atrial fibrillation, HF, CAD, GERD, hypercholesterolemia, CKD, prostate cancer, bladder cancer and Hx TIA who presented to [facility] ED for evaluation of
hypoxia to 60's following an episode of vomiting throughout the day. EMS stated patient found to be hypoxic in 80s despite supplemental oxygen. Patient with recent hospitalization for acute hypoxic respiratory insufficiency likely 2/2 acute HFpEF
and pulmonary edema, he was also covid +. (negative this admission). Overnight admission patient had increased oxygen requirements requiring high jean-paul and low blood pressures. 1/ blood cultures + strep, unclear if contaminant. He has been on IV
Unasyn for presumed aspiration pneumonia.
Acute Hypoxic Respiratory Failure
-Due to aspiration pneumonia and heart failure
-Currently requiring 2 L of oxygen, down from 4, wean as tolerated
Heart Failure preserved Ejection Fraction, acute exacerbation
-Trop negative, admitted to IMU, now transferred to telemetry
-s/p IV diuresis; changed to oral on 12/11 but patient with weight gain, remains overloaded. Refused labs yesterday morning, now has been accepting therefore OK to resume IV lasix
-repeat TTE from 12/08 (for bacteremia) - above
-Appreciate cardiology input, IV Lasix changed to Lasix 80 mg p.o. daily 12/13
-12/15 repeat chest x-ray shows significantly progressed findings suggesting probable pulmonary edema, progressed moderate right pleural effusion
-12/16 cardiology changed patient back to Lasix 80 mg IV twice daily
Moderate right pleural effusion
-Status post right thoracentesis draining 1750 cc of clear yellow pleural fluid
-Transudative effusion, likely due to his CHF
Aspiration Pneumonia
Sepsis 2/2 Above
1/ Blood cultures gram + cocci in pairs and chains. Strep species
-IV Unasyn initiated on 12/08
-IV Vanc started after repeat blood cultures - d/c'd
-TTE without vegetation.
-Appreciate ID input, recommend Augmentin 500 mg twice daily for an additional 7 days
-Seen by SPL, cleared for regular diet with thin liquids
Permanent Atrial Fibrillation
-patient is on Metoprolol 150mg PO BID and Diltiazem 360mg PO QD - they were started at lower dose in setting of sepsis
-Metop increased to home dose; continue Dilt 180 BID
-12/15�resumed Eliquis
-12/16-holding Eliquis due to hematuria again
Subacute intermittent hematuria exacerbated by Eliquis use
-Son reports patient has been having intermittent hematuria for the last 2 months
-Appreciate urology input, differential diagnosis include radiation-induced vs. recurrence of bladder cancer
-Discussed with son, who states patient recently followed up with his cancer doctor at [place], no concern for recurrence of bladder cancer
-12/15, hematuria resolved, resumed Eliquis
-12/16, hematuria recurred, hold Eliquis�urology recommends holding for 3 days -can resume on Tuesday 12/19
Hx Coronary Artery Disease
-COUNTER POCKET SEWER Statin
Essential HTN
HLD - COUNTER POCKET SEWER Statin
Normocytic anemia
-Hg stable > 8
-monitor daily
Thrombocytopenia in setting of sepsis
-resolving
GERD - COUNTER POCKET SEWER Protonix
BPH - COUNTER POCKET SEWER Flomax
DVT prophylaxis�Hold Eliquis due to hematuria
DNR
Dispo - PT rec SNF, discharge to [facility] when medically stable
Updated son 12/14
Total time spent to see the patient on the floor, examine the patient, review data and lab results, discuss treatment plan with patient, nursing staff around 53 minutes.
Physical Exam
General: No acute distress
HEENT: Normocephalic, Atraumatic, EOMI, MMM
Respiratory: Left basilar crackles
Cardiac: Normal S1/S2, Regular Rate and Rhythm
GI: Soft, Nontender, Nondistended, Normal Bowel Sounds
Extremities: No Clubbing, Cyanosis
Bilateral lower extremity edema noted
Neuro: Nonfocal/Grossly Intact
Psych: Calm, Cooperative
Anticipated Discharge: 24 - 48 hours
Subjective/Interval History
-
Date of Service: December 15, 2024
Patient reports hematuria this morning. Continues to feel 'terrible', but overall reports his breathing is better. No fever, no vomiting.
Objective Data
-
Labs:
Laboratory Results
12/15/24
06:44
WBC 4.0 L
Hgb 9.5 L
Hct 31.2 L
Plt Count 204
Sodium 140
Potassium 4.5
Chloride 99
Carbon Dioxide 37 H
BUN 32 H
Creatinine 1.3
Glucose 170 H
Calcium 8.8
Vital Signs:
Vital Signs
Temp Pulse Resp BP Pulse Ox
98 F 105 20 136/92 97
12/15/24 11:26 12/15/24 11:26 12/15/24 11:26 12/15/24 11:26 12/15/24 11:26
I&O
12/14/24 12/15/24 12/16/24
06:59 06:59 06:59
Intake Total 480 / 480 1410 / 1410 240 / 240
Output Total 795 / 795 1425 / 1425
Balance -315 / -315 -15 / -15 240 / 240
[2024-12-16] MEDS: FLOMAX 0.4 MG PO (08:24)
[2024-12-16] MEDS: PROTONIX 40 MG PO ×2 (08:24→20:51)
[2024-12-16] MEDS: LOPRESSOR 200 MG PO ×2 (08:24→20:51)
[2024-12-16] MEDS: AUGMENTIN 500 MG/125 MG 1 TABLET PO ×2 (08:25→20:47)
[2024-12-16] MEDS: LASIX 80 MG PO (08:25)
[2024-12-16] MEDS: MAG-TAB SR 84 MG PO (08:25)
[2024-12-16] MEDS: ELIQUIS PO ×2 (08:25→09:09)
[2024-12-16] MEDS: CARDIZEM CD 180 MG PO ×2 (08:26→20:51)
[2024-12-16 08:27] LABS: Hematocrit 32.1 % (39.0-52.0); Hemoglobin 9.7 g/dL (13.0-18.0); Mean Corp Hgb Conc. 30.2 g/dL (33.0-37.0); Mean Corpuscular Hgb 24.2 pg (27.0-31.0); Mean Platelet Volume 10.1 fL (7.4-10.4); Platelet Count 227 10^3/uL (130-400); Red Blood Cell Count 4.01 10^6/uL (4.70-6.10); Red Cell Dist. Width 17.4 % (11.5-14.5); White Blood Cell Count 4.6 10^3/uL (4.8-10.8)
[2024-12-16 08:53] LABS: NT-proBNP 15800 pg/ml
[2024-12-16 09:14] LABS: Blood Urea Nitrogen 33 mg/dl (9-20); Calcium 8.8 mg/dl (8.4-10.2); Carbon Dioxide 29 mmol/L (22-30); Chloride 100 mmol/L (98-107); Estimated Creatinine Clearance 39 ml/min; Glucose 154 mg/dl (70-99); Potassium 4.5 mmol/L (3.5-5.1); Sodium 140 mmol/L (135-145); eGFR > 60.00
[2024-12-16] MEDS: KCL 40 MEQ PO (09:47)
--- NOTE | 2024-12-16 09:50 | CM ---
Addendum entered by Natalie Bonds 12/16/24 15:07:
OT assessment pending; OT notes needed to submit Authorization for SNF;
Pending AUTH approval, patient will discharge to [facility] over the weekend
Addendum entered by Natalie Bonds 12/16/24 11:25:
Report # [phone]

Original Note:
Plan: discharge to [facility] tomorrow
[2024-12-16 10:12] LABS: LDH 225 U/L (120-246); Total Protein 5.9 g/dl (6.3-8.2)
[2024-12-16 12:11] LABS: Body Fluid LDH < 90 U/L; Body Fluid Protein < 2.0 g/dl
--- NOTE | 2024-12-16 13:17 | W.PN.URO.CBU ---
Today's Communication / Plan
-
stop eliquis x 72 hours
Assessment / Plan
-
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
Diagnosis
-
Date of Service: December 16, 2024
-
Patient Diagnosis:
Post Op Day:
Patient Diagnosis:
Post Op Day:
Patient Diagnosis:
hematuria on eliquis for a fib admitted with sob H/o seeds for prostaTe cancer years ago and radiation and chemo for muscle invasive bladder cancer now at [facility]
Post Op Day:
Subjective
-
intermitent hematuiria on eliquis
Objective
-
Vital Signs
Temp Pulse Resp BP Pulse Ox
97.7 F 101 20 115/78 94
12/16/24 11:45 12/16/24 11:45 12/16/24 11:45 12/16/24 11:45 12/16/24 11:45
Intake and Output
12/15/24 12/16/24 12/17/24
06:59 06:59 06:59
Intake Total 1410 / 1410 600 / 600
Output Total 1425 / 1425 1000 / 1000
Balance -15 / -15 -400 / -400
Intake:
Oral fluids 1410 / 1410 600 / 600
Output:
Urine, Voided 1425 / 1425 1000 / 1000
Other:
Number of approximated MODERATE 1
amounts of urine
Laboratory Results
12/16/24 07:18
12/16/24 07:18
Review of Systems
-
: Bleeding
Physical Exam
-
General - well developed, well nourished, no acute distress
Chest - clear bilaterally
Abdomen - soft, non-tender, positive bowel sounds, no CVAT, no incisional pain or distention
Genitalia - normal
Rectal - normal
Skin - warm & dry with no rash
Neuro - AOx3, no motor deficits
Extremities - no clubbing, no cyanosis, no edema
Incision - clean, dry
Dressing - clean, dry, intact
Care Review
Data Reviewed
Discussed with: Hospitalist and Family ()
CT Scan: Image Pers Reviewed
--- NOTE | 2024-12-16 13:37 | W.PN.CD ---
Today's Communication / Plan
-
IV lasix
Impression / Plan
-
Gennaro Whiteside is an 84-year-old man with HFpEF, permanent atrial fibrillation, hypertension, CAD (details unknown) and CKD who presents from rehab after recent admission with cough, emesis, and hypoxia. Cardiology is consulted due acute HF and A
fib with RVR.
Asked to see agian for ongoing IV diuresis.
Plant Hr Manager: Dr. Christie Laboy ([place])
HFpEF, acute on chronic, improved s/p IV lasix
-Lasix 80 mg IV bid; likely will need more tomorrow
-TTE 12/01/2024: LVEF 55-60%, LVH, mild/mod MR, mild/mod TR, small pericardial effusion
Acute hypoxic respiratory failure: improved
-suspected aspiration, also with one Bcx + for GPC
-Abx per hospitalist
Permanent atrial fibrillation
-Rates mildly elevated.
-contmetoprolol tartrate to 200 mg BID.
-Continue diltiazem CD 180 mg BID.
-Eliquis resumed.
Moderate TR, mild/moderate MR
-Relatively stable.
Hypertension
-Fairly controlled.
CAD
-Continue statin
CKD3a
-Creatinine at baseline
-Trend with diuresis
Subjective: Cont to have SOB and swelling
Physical Exam
Vital Signs/Labs
Vital Signs
Temp Pulse Resp BP Pulse Ox
97.7 F 101 20 115/78 94
12/16/24 11:45 12/16/24 11:45 12/16/24 11:45 12/16/24 11:45 12/16/24 11:45
12/15/24 12/16/24 12/17/24
06:59 06:59 06:59
Actual Weight 164 lb 1.6 oz 160 lb 14.4 oz
12/16/24 07:18
12/16/24 07:18
Magnesium 1.7 mg/dl (1.6-2.3) 12/15/24 06:44
TSH 2.56 uIU/ml (0.47-4.68) 12/07/24 21:15
12/07/24 12/16/24
21:16 07:18
Nwx-R-Axdyjnxixje Pept [id number]
Physical Exam
Constitutional: No acute distress
EENT: Anicteric
Cardiovascular: Rhythm/rate is irregular and Pedal edema present
Respiratory: Crackles Present
GI: Soft
Neuro/Psych: Alert and Oriented
Data Reviewed
-
Date of Service: December 16, 2024
EKG: Tracing Personally Visualized and interpreted (af)
Echo: Report Reviewed by me
Labs: Labs Reviewed by me
[2024-12-16 13:48] LABS: Body Fluid Mononuclear 98.6 %; Body Fluid Polymorphonuclear 1.4 %; Body Fluid WBC 146 /CUMM
[2024-12-16 13:57] LABS: Body Fluid Second Tech AMA
[2024-12-16] MEDS: LASIX 80 MG IV (15:25)
[2024-12-16] MEDS: LIPITOR 40 MG PO (17:46)
[2024-12-17 06:00] VITALS: BMI 26.5
[2024-12-17 08:16] VITALS: BP 120/69
--- NOTE | 2024-12-17 08:17 | W.PN.URO.CBU ---
Today's Communication / Plan
-
hold eliquis until thursday
Assessment / Plan
-
hx of prostate and bladder cancer treated with xrt
hematuria on eliquis
currently pt is stable
in short term- have rec hold of eliquis until thursday- then may restart and observe
watermelon inspector- difficult situation as pt is at high risk for continued hematuria due to his xrt treatment
will need prompt f/u after discharge with his [facility] urologist
will follow
Diagnosis
-
Date of Service: December 17, 2024
-
Patient Diagnosis:
hx of prostate cancer s/p brachytherapy
hx of chemo/xrt for bladder cancer- deemed non-operative candidate at [facility]
on eliquis
hematuria
Subjective
-
pt asleep
spoke to nursing
reports no trouble urinating and clear yellow urine- eliquis is again on hold due to hematuria yesterday
Objective
-
Vital Signs
Temp Pulse Resp BP Pulse Ox
97.9 F 103 20 120/69 96
12/17/24 08:16 12/17/24 08:16 12/17/24 08:16 12/17/24 08:16 12/17/24 08:16
Intake and Output
12/16/24 12/17/24 12/18/24
06:59 06:59 06:59
Intake Total 600 / 600 1000 / 1000
Output Total 1000 / 1000 2024 100 / 100
Balance -400 / -400 -1025 / -1025 -100 / -100
Intake:
Oral fluids 600 / 600 1000 / 1000
Output:
Urine, Voided 1000 / 1000 2024 100 / 100
Other:
Number of approximated SMALL 1
amounts of urine
Number of approximated MODERATE 1 1
amounts of urine
Physical Exam
-
General - no acute distress
--- NOTE | 2024-12-17 08:51 | W.PN.HOSP.TC ---
Today's Communication/Plan
-
see bold
Assessment / Plan
Assessment / Plan
Patient is a 84-year-old male with past medical history significant for permanent atrial fibrillation, HF, CAD, GERD, hypercholesterolemia, CKD, prostate cancer, bladder cancer and Hx TIA who presented to [facility] ED for evaluation of
hypoxia to 60's following an episode of vomiting throughout the day. EMS stated patient found to be hypoxic in 80s despite supplemental oxygen. Patient with recent hospitalization for acute hypoxic respiratory insufficiency likely 2/2 acute HFpEF
and pulmonary edema, he was also covid +. (negative this admission). Overnight admission patient had increased oxygen requirements requiring high jean-paul and low blood pressures. 1/4 blood cultures + strep, unclear if contaminant. He has been on IV
Unasyn for presumed aspiration pneumonia.
Acute Hypoxic Respiratory Failure
-Due to aspiration pneumonia and heart failure
-Currently requiring 1 L of oxygen, down from 4, wean as tolerated
Heart Failure preserved Ejection Fraction, acute exacerbation
-Trop negative, admitted to IMU, now transferred to telemetry
-s/p IV diuresis; changed to oral on 12/11 but patient with weight gain, remains overloaded. Refused labs yesterday morning, now has been accepting therefore OK to resume IV lasix
-repeat TTE from 12/08 (for bacteremia) - above
-Appreciate cardiology input, IV Lasix changed to Lasix 80 mg p.o. daily 12/13
-12/15 repeat chest x-ray shows significantly progressed findings suggesting probable pulmonary edema, progressed moderate right pleural effusion
-12/16 cardiology changed patient back to Lasix 80 mg IV twice daily
-Trend creatinine, trend daily weights
Moderate right pleural effusion
-Status post right thoracentesis draining 1750 cc of clear yellow pleural fluid
-Transudative effusion, likely due to his CHF
Aspiration Pneumonia
Sepsis 2/2 Above
1/4 Blood cultures gram + cocci in pairs and chains. Strep species
-IV Unasyn initiated on 12/08
-IV Vanc started after repeat blood cultures - d/c'd
-TTE without vegetation.
-Appreciate ID input, recommend Augmentin 500 mg twice daily for an additional 7 days through 12/18/24
-Seen by SPL, cleared for regular diet with thin liquids
Permanent Atrial Fibrillation
-patient is on Metoprolol 150mg PO BID and Diltiazem 360mg PO QD - they were started at lower dose in setting of sepsis
-Metop increased to home dose; continue Dilt 180 BID
-12/15�resumed Eliquis
-12/16-holding Eliquis due to recurrent hematuria
Subacute intermittent hematuria exacerbated by Eliquis use
-Son reports patient has been having intermittent hematuria for the last 2 months
-Appreciate urology input, differential diagnosis include radiation-induced vs. recurrence of bladder cancer
-Discussed with son, who states patient recently followed up with his cancer doctor at [place], no concern for recurrence of bladder cancer
-12/15, hematuria resolved, resumed Eliquis
-12/16, hematuria recurred, hold Eliquis�urology recommends holding for 3 days -can resume on Tuesday 12/19
Hx Coronary Artery Disease
-FIELD SERVICE ANALYST Statin
Essential HTN
HLD - FIELD SERVICE ANALYST Statin
Normocytic anemia
-Hg stable > 8
-monitor daily
Thrombocytopenia in setting of sepsis
-resolving
GERD - FIELD SERVICE ANALYST Protonix
BPH - FIELD SERVICE ANALYST Flomax
DVT prophylaxis�Hold Eliquis due to hematuria
DNR
Dispo - PT rec SNF, discharge to [facility] when medically stable
Updated son 12/14
Total time spent to see the patient on the floor, examine the patient, review data and lab results, discuss treatment plan with patient, nursing staff around 43 minutes.
Physical Exam
General: No acute distress
HEENT: Normocephalic, Atraumatic, EOMI, MMM
Respiratory: Left basilar crackles
Cardiac: Normal S1/S2, Regular Rate and Rhythm
GI: Soft, Nontender, Nondistended, Normal Bowel Sounds
Extremities: No Clubbing, Cyanosis
Bilateral lower extremity edema noted
Neuro: Nonfocal/Grossly Intact
Psych: Calm, Cooperative
Anticipated Discharge: 24 - 48 hours
Subjective/Interval History
-
Date of Service: December 17, 2024
Patient reports feeling better today. Shortness of breath improved. Hematuria resolved. No fever, no vomiting.
Objective Data
-
Labs:
Laboratory Results
12/17/24
06:00
WBC Pending
Hgb Pending
Hct Pending
Plt Count Pending
Sodium Pending
Potassium Pending
Chloride Pending
Carbon Dioxide Pending
BUN Pending
Creatinine Pending
Glucose Pending
Calcium Pending
Vital Signs:
Vital Signs
Temp Pulse Resp BP Pulse Ox
97.9 F 103 20 120/69 96
12/17/24 08:16 12/17/24 08:16 12/17/24 08:16 12/17/24 08:16 12/17/24 08:16
I&O
12/16/24 12/17/24 12/18/24
06:59 06:59 06:59
Intake Total 600 / 600 1000 / 1000
Output Total 1000 / 1000 2024 100 / 100
Balance -400 / -400 -1025 / -1025 -100 / -100
[2024-12-17] MEDS: LOPRESSOR 200 MG PO ×2 (10:52→20:51)
[2024-12-17] MEDS: LASIX 80 MG IV (10:53)
[2024-12-17] MEDS: MAG-TAB SR 84 MG PO (10:54)
[2024-12-17] MEDS: FLOMAX 0.4 MG PO (10:54)
[2024-12-17] MEDS: PROTONIX 40 MG PO ×2 (10:54→20:51)
[2024-12-17] MEDS: AUGMENTIN 500 MG/125 MG 1 TABLET PO ×2 (10:54→20:50)
[2024-12-17] MEDS: CARDIZEM CD 180 MG PO ×2 (10:54→20:50)
[2024-12-17] MEDS: FLUSH (NSS) 1 FLUSH IV (10:55)
[2024-12-17] MEDS: KCL 40 MEQ PO (12:54)
--- NOTE | 2024-12-17 13:06 | W.PN.CD ---
Addendum entered and electronically signed by Chano Walters MD 12/17/24 13:21:
-
-
Hematuria => Eliquis hold noted.
Urology comments appreciated.
Hx of bladder and prostate cancer noted
Check pBNP tomorrow.
-
-
Original Note:
Today's Communication / Plan
-
- Continue IV diuresis for now
- Will need to pick a goal weight
- Over time add GDMT (MRA, SGLT2-I)
- I stopped KCl and started MRA (spironolactone)
- Check cost of SGLT2-I, start if cost acceptable
Impression / Plan
-
Background: Gennaro Whiteside is an 84-year-old man with HFpEF, permanent atrial fibrillation, hypertension, CAD (details unknown) and CKD who presents from rehab after recent admission with cough, emesis, and hypoxia. Cardiology is consulted due acute
HF and A fib with RVR. Asked to see agian for ongoing IV diuresis. Airline Mechanic: Dr. Christie Laboy ([place])
HFpEF, acute on chronic
- No clear precipitant
- Goal weight uncertain, weight 11/24/2024 was 80.4 kg. Admit weight 12/08/2023 was 75 kg, and now 70 kg!!
- Continue diuresis
- S/p thoracentesis 1700 mL right
- Over time add GDMT (MRA, SGLT2-I)
- Will stop KCl and start MRA (spironolactone)
- Check cost of SGLT2-I, start if cost acceptable
AFIb, permanent, on Eliquis, high dose meds for rate control, was fast on admit with severe HF.
Mild to mod valvular heart disease
HTN
CAD
Mixed hyperlipidemia
CKD3A
RBBB
Bacteremia
- On antibiotics
Subjective: Cont to have SOB and swelling
Data: Echo 12/01/2024: LVEF 55-60%, LVH, mild/mod MR, mild/mod TR, small pericardial effusion
Physical Exam
Vital Signs/Labs
Vital Signs
Temp Pulse Resp BP Pulse Ox
97.9 F 108 20 130/76 96
12/17/24 08:16 12/17/24 10:52 12/17/24 08:16 12/17/24 10:52 12/17/24 08:16
12/16/24 12/17/24 12/18/24
06:59 06:59 06:59
Actual Weight 72.983 kg 69.989 kg
Magnesium 1.7 mg/dl (1.6-2.3) 12/15/24 06:44
TSH 2.56 uIU/ml (0.47-4.68) 12/07/24 21:15
12/07/24 12/16/24
21:16 07:18
Cyd-D-Inddfjljtge Pept [id number]
Physical Exam
Constitutional: No acute distress
EENT: Anicteric
Cardiovascular: Rhythm/rate is irregular and S1S2 is normal
Respiratory: Respiratory effort normal and Lungs clear to auscul.
GI: Soft and Distention absent
Data Reviewed
-
Date of Service: December 17, 2024
[2024-12-17 13:12] LABS: Hematocrit 29.2 % (39.0-52.0); Mean Corp Hgb Conc. 30.8 g/dL (33.0-37.0); Mean Corpuscular Hgb 24.9 pg (27.0-31.0); Mean Corpuscular Volume 80.9 fL (80.0-94.0); Mean Platelet Volume 10.1 fL (7.4-10.4); Platelet Count 220 10^3/uL (130-400); Red Blood Cell Count 3.61 10^6/uL (4.70-6.10); Red Cell Dist. Width 17.4 % (11.5-14.5); White Blood Cell Count 3.8 10^3/uL (4.8-10.8)
[2024-12-17 13:37] LABS: Blood Urea Nitrogen 35 mg/dl (9-20); Calcium 8.3 mg/dl (8.4-10.2); Carbon Dioxide 34 mmol/L (22-30); Chloride 99 mmol/L (98-107); Estimated Creatinine Clearance 31 ml/min; Glucose 201 mg/dl (70-99); Potassium 3.7 mmol/L (3.5-5.1); Sodium 141 mmol/L (135-145); eGFR 45.91
[2024-12-17] MEDS: ALDACTONE 25 MG PO (14:39)
[2024-12-17 15:00] VITALS: BP 104/53
[2024-12-17] MEDS: LIPITOR 40 MG PO (17:24)
[2024-12-17 23:58] VITALS: BP 115/74
[2024-12-18 06:00] VITALS: BMI 25.6
[2024-12-18 07:00] VITALS: BP 137/84
[2024-12-18 07:17] LABS: Hematocrit 29.2 % (39.0-52.0); Mean Corp Hgb Conc. 30.8 g/dL (33.0-37.0); Mean Corpuscular Hgb 25.1 pg (27.0-31.0); Mean Corpuscular Volume 81.3 fL (80.0-94.0); Mean Platelet Volume 10.3 fL (7.4-10.4); Platelet Count 219 10^3/uL (130-400); Red Blood Cell Count 3.59 10^6/uL (4.70-6.10); Red Cell Dist. Width 17.2 % (11.5-14.5); White Blood Cell Count 3.9 10^3/uL (4.8-10.8)
[2024-12-18 07:39] LABS: NT-proBNP 9410 pg/ml
[2024-12-18 08:04] LABS: Blood Urea Nitrogen 36 mg/dl (9-20); Calcium 8.6 mg/dl (8.4-10.2); Carbon Dioxide 32 mmol/L (22-30); Chloride 103 mmol/L (98-107); Estimated Creatinine Clearance 31 ml/min; Glucose 185 mg/dl (70-99); Potassium 4.1 mmol/L (3.5-5.1); Sodium 143 mmol/L (135-145); eGFR 45.91
--- NOTE | 2024-12-18 08:48 | W.PN.HOSP.TC ---
Today's Communication/Plan
-
Continue IV Lasix as per cardiology
Resume Eliquis tomorrow
Assessment / Plan
Assessment / Plan
Patient is a 84-year-old male with past medical history significant for permanent atrial fibrillation, HF, CAD, GERD, hypercholesterolemia, CKD, prostate cancer, bladder cancer and Hx TIA who presented to [facility] ED for evaluation of
hypoxia to 60's following an episode of vomiting throughout the day. EMS stated patient found to be hypoxic in 80s despite supplemental oxygen. Patient with recent hospitalization for acute hypoxic respiratory insufficiency likely 2/2 acute HFpEF
and pulmonary edema, he was also covid +. (negative this admission). Overnight admission patient had increased oxygen requirements requiring high jean-paul and low blood pressures. 1/4 blood cultures + strep, unclear if contaminant. He has been on IV
Unasyn for presumed aspiration pneumonia.
Acute Hypoxic Respiratory Failure
-Due to aspiration pneumonia and heart failure
-Currently requiring 2 L of oxygen, down from 4, wean as tolerated
Heart Failure preserved Ejection Fraction, acute exacerbation
-Trop negative, admitted to IMU, now transferred to telemetry
-s/p IV diuresis; changed to oral on 12/11 but patient with weight gain, remains overloaded. Refused labs yesterday morning, now has been accepting therefore OK to resume IV lasix
-repeat TTE from 12/08 (for bacteremia) - above
-Appreciate cardiology input, IV Lasix changed to Lasix 80 mg p.o. daily 12/13
-12/15 repeat chest x-ray shows significantly progressed findings suggesting probable pulmonary edema, progressed moderate right pleural effusion
-12/16 cardiology changed patient back to Lasix 80 mg IV twice daily, now changed to Lasix 80 mg IV daily
-Trend creatinine, trend daily weights
Moderate right pleural effusion
-Status post right thoracentesis draining 1750 cc of clear yellow pleural fluid
-Transudative effusion, likely due to his CHF
Aspiration Pneumonia
Sepsis 2/2 Above
1/4 Blood cultures gram + cocci in pairs and chains. Strep species
-IV Unasyn initiated on 12/08
-IV Vanc started after repeat blood cultures - d/c'd
-TTE without vegetation.
-Appreciate ID input, recommend Augmentin 500 mg twice daily for an additional 7 days through 12/18/24
-Seen by SPL, cleared for regular diet with thin liquids
Permanent Atrial Fibrillation
-patient is on Metoprolol 150mg PO BID and Diltiazem 360mg PO QD - they were started at lower dose in setting of sepsis
-Metop increased to home dose; continue Dilt 180 BID
-12/15�resumed Eliquis
-12/16-holding Eliquis due to recurrent hematuria
Subacute intermittent hematuria exacerbated by Eliquis use
-Son reports patient has been having intermittent hematuria for the last 2 months
-Appreciate urology input, differential diagnosis include radiation-induced vs. recurrence of bladder cancer
-Discussed with son, who states patient recently followed up with his cancer doctor at [place], no concern for recurrence of bladder cancer
-12/15, hematuria resolved, resumed Eliquis
-12/16, hematuria recurred, hold Eliquis�urology recommends holding for 3 days -can resume on Tuesday 12/19
Hx Coronary Artery Disease
-FINANCIAL DATA ANALYST Statin
Essential HTN
HLD - FINANCIAL DATA ANALYST Statin
Normocytic anemia
-Hg stable > 8
-monitor daily
Thrombocytopenia in setting of sepsis
-resolving
GERD - FINANCIAL DATA ANALYST Protonix
BPH - FINANCIAL DATA ANALYST Flomax
DVT prophylaxis�Hold Eliquis due to hematuria
DNR
Dispo - PT rec SNF, discharge to [facility] when medically stable
Updated son 12/14
Total time spent to see the patient on the floor, examine the patient, review data and lab results, discuss treatment plan with patient, nursing staff around 48 minutes.
Physical Exam
General: No acute distress
HEENT: Normocephalic, Atraumatic, EOMI, MMM
Respiratory: Left basilar crackles
Cardiac: Normal S1/S2, Regular Rate and Rhythm
GI: Soft, Nontender, Nondistended, Normal Bowel Sounds
Extremities: No Clubbing, Cyanosis
Bilateral lower extremity edema noted
Neuro: Nonfocal/Grossly Intact
Psych: Calm, Cooperative
Anticipated Discharge: 24 - 48 hours
Subjective/Interval History
-
Date of Service: December 18, 2024
Patient reports feeling better. His shortness of breath has resolved. Hematuria resolved. No fever, no vomiting.
Objective Data
-
Labs:
Laboratory Results
12/18/24
06:40
WBC 3.9 L
Hgb 9.0 L
Hct 29.2 L
Plt Count 219
Sodium 143
Potassium 4.1
Chloride 103
Carbon Dioxide 32 H
BUN 36 H
Creatinine 1.5 H
Glucose 185 H
Calcium 8.6
Vital Signs:
Vital Signs
Temp Pulse Resp BP Pulse Ox
98.1 F 107 24 137/84 97
12/18/24 07:00 12/18/24 07:00 12/18/24 07:00 12/18/24 07:00 12/18/24 07:00
I&O
12/17/24 12/18/24 12/19/24
06:59 06:59 06:59
Intake Total 1000 / 1000 720 / 720
Output Total 2024 1875 / 187
Balance -1025 / -1025 -1155 / -1155
[2024-12-18] MEDS: ALDACTONE 25 MG PO (09:12)
[2024-12-18] MEDS: AUGMENTIN 500 MG/125 MG 1 TABLET PO ×2 (09:12→20:09)
[2024-12-18] MEDS: CARDIZEM CD 180 MG PO ×2 (09:12→20:09)
[2024-12-18] MEDS: PROTONIX 40 MG PO ×2 (09:13→20:09)
[2024-12-18] MEDS: LOPRESSOR 200 MG PO ×2 (09:13→20:10)
[2024-12-18] MEDS: LASIX 80 MG IV (09:13)
[2024-12-18] MEDS: MAG-TAB SR 84 MG PO (09:13)
[2024-12-18] MEDS: FLUSH (NSS) 2 FLUSH IV (09:13)
[2024-12-18] MEDS: FLOMAX 0.4 MG PO (09:13)
--- NOTE | 2024-12-18 10:03 | W.PN.CD ---
Today's Communication / Plan
-
Continue IV diuresis today and tomorrow AM and then reassess
Will need to pick goal weight at discharge
Will need BMP 2, 4, and 8-12 weeks after discharge given then med changes
Eliquis resumption per urology
Add SGLT2-I if cost acceptable, case management consulted
Impression / Plan
-
Background: Gennaro Whiteside is an 84-year-old man with HFpEF, permanent atrial fibrillation, hypertension, CAD (details unknown) and CKD who presents from rehab after recent admission with cough, emesis, and hypoxia. Cardiology is consulted due acute
HF and A fib with RVR. Asked to see agian for ongoing IV diuresis. Medical Parasitologist: Dr. Christie Laboy ([place])
HFpEF, acute on chronic
- No clear precipitant
- Goal weight uncertain, weight 11/24/2024 was 80.4 kg. Admit weight 12/08/2023 was 75 kg => 70 kg and now 67.7 kg (12/18/2024)!!
- Admit pBNP 15,800 and now 9410 (12/18/2024)
- Continue the IV diuresis another day
- S/p thoracentesis 1700 mL right
- GDMT is being pursued: Now off KCl and now on MRA (spironolactone), checking cost of SGLT2-I with plans to start if cost acceptable
AFib, permanent, on Eliquis, high dose meds for rate control, was fast on admit with severe HF.
Mild to mod valvular heart disease
HTN
CAD, details unknown
Mixed hyperlipidemia
CKD3A
RBBB
Bacteremia
- On antibiotics
Urology
- Hematuria => Eliquis hold noted.
- Urology comments appreciated.
- Hx of bladder and prostate cancer noted
Subjective: Feels a bit better
Data: Echo 12/01/2024: LVEF 55-60%, LVH, mild/mod MR, mild/mod TR, small pericardial effusion
Physical Exam
Vital Signs/Labs
Vital Signs
Temp Pulse Resp BP Pulse Ox
98.1 F 107 24 137/84 97
12/18/24 07:00 12/18/24 09:12 12/18/24 07:00 12/18/24 09:12 12/18/24 07:00
12/17/24 12/18/24 12/19/24
06:59 06:59 06:59
Actual Weight 69.989 kg 67.727 kg
12/18/24 06:40
12/18/24 06:40
Magnesium 1.7 mg/dl (1.6-2.3) 12/15/24 06:44
TSH 2.56 uIU/ml (0.47-4.68) 12/07/24 21:15
12/07/24 12/16/24 12/18/24
21:16 07:18 06:40
Twd-V-Hzohvwddmcg Pept [id number]
Physical Exam
Constitutional: No acute distress
EENT: Anicteric
Cardiovascular: Rhythm & rate is regular and Pedal edema is absent
Respiratory: Respiratory effort normal and Lungs clear to auscul.
GI: Soft and Distention absent
Neuro/Psych: Alert
Data Reviewed
-
Date of Service: December 18, 2024
[2024-12-18] MEDS: ROBITUSSIN 100 MG PO (14:45)
[2024-12-18 15:00] VITALS: BP 105/60
--- NOTE | 2024-12-18 16:05 | W.PN.UPDATE ---
Update Note
Progress Note Update
Discharge diagnosis:
Acute hypoxic respiratory failure
Acute heart failure with a preserved ejection fraction
Moderate right pleural effusion
Sepsis due to aspiration pneumonia
Permanent atrial fibrillation on Eliquis
Subacute intermittent hematuria exacerbated by Eliquis use
History of bladder cancer
Coronary artery disease
Chronic normocytic anemia
Essential hypertension
Thrombocytopenia
Hyperlipidemia
Consults: Cardiology, urology, ID
Procedures:
12/16/2024 right thoracentesis draining 1750 cc of clear yellow pleural fluid
Hospital course:
84-year-old male with a past medical history of bladder cancer, CAD, atrial fibrillation on Eliquis, and CHF was admitted for acute hypoxic respiratory failure secondary to CHF exacerbation and pneumonia.
Patient was seen in conjunction with ID for his sepsis secondary to pneumonia. Patient was treated with a full course of Augmentin, and does not need any more antibiotics upon discharge. He was seen in conjunction with speech pathology, and was
cleared for a regular diet with thin liquids.
Patient was seen in conjunction with cardiology for his CHF exacerbation. He initially required 4 L of oxygen. He was treated with high-dose IV Lasix. He underwent right thoracentesis on 12/16/2024, draining 1750 cc of clear yellow pleural fluid.
It is transudative in nature, consistent with CHF in etiology. He will be discharged on an increased dose of oral Lasix as per cardiology recommendations.
Patient's hospital course was complicated by intermittent subacute hematuria. Family reports this has been going on for the past 2 months. His Eliquis was held, he was seen in conjunction with urology. Urology recommends holding Eliquis for 3
days, then resuming on 12/19/2024. He does have a history of bladder cancer. Family reports he was recently seen by his oncologist, who states that his bladder cancer is in remission. His hematuria is likely due to radiation-induced injury.
Patient is medically stable and cleared by cardiology and urology for discharge. He needs to follow-up with his primary care doctor 1 week after he leaves rehab.
Disposition: Short-term rehab
Discharge planning: Required 46 minutes
[2024-12-18] MEDS: LIPITOR 40 MG PO (18:16)
[2024-12-18 23:15] VITALS: BP 98/44
[2024-12-19 03:36] VITALS: BP 108/64
[2024-12-19 04:33] VITALS: BMI 25.9
--- NOTE | 2024-12-19 08:07 | W.PN.CD ---
Today's Communication / Plan
-
start furosemide 80mg po daily
reweigh to establish 'dry weight'
pricing sglt2i, if affordable would recommend initiation
No further cardiology recommendations
Impression / Plan
-
Background: Gennaro Whiteside is an 84-year-old man with HFpEF, permanent atrial fibrillation, hypertension, CAD (details unknown) and CKD who presents from rehab after recent admission with cough, emesis, and hypoxia. Cardiology is consulted due acute
HF and A fib with RVR. Asked to see agian for ongoing IV diuresis. Fence Making Machine Operator: Dr. Christie Laboy ([place])
HFpEF, acute on chronic
- No clear precipitant
- Goal weight uncertain, weight 11/24/2024 was 80.4 kg. Admit weight 12/08/2023 was 75 kg => 70 kg and now 67.7 kg (12/18/2024)
-negative but gained weight will reweigh
-will transition to po lasix: 80 mg po daily
- Admit pBNP 15,800 and now 9410 (12/18/2024)
- S/p thoracentesis 1700 mL right
- GDMT is being pursued: Now off KCl and now on MRA (spironolactone), checking cost of SGLT2-I with plans to start if cost acceptable
AFib, permanent, on Eliquis, high dose meds for rate control, was fast on admit with severe HF.
Mild to mod valvular heart disease
HTN
CAD, details unknown
Mixed hyperlipidemia
CKD3A
RBBB
Bacteremia
- On antibiotics
Urology
- Hematuria => Eliquis hold noted, resumed 12/19/24
- Urology comments appreciated.
- Hx of bladder and prostate cancer noted
Subjective: no complaints of cp or sob. no dizziness
Data: Echo 12/01/2024: LVEF 55-60%, LVH, mild/mod MR, mild/mod TR, small pericardial effusion
Physical Exam
Vital Signs/Labs
Vital Signs
Temp Pulse Resp BP Pulse Ox
98.3 F 102 19 108/64 95
12/18/24 23:15 12/19/24 03:36 12/18/24 23:15 12/19/24 03:36 12/19/24 00:07
12/18/24 12/19/24 12/20/24
06:59 06:59 06:59
Actual Weight 67.727 kg 68.356 kg
12/18/24 06:40
Magnesium 1.7 mg/dl (1.6-2.3) 12/15/24 06:44
TSH 2.56 uIU/ml (0.47-4.68) 12/07/24 21:15
12/07/24 12/16/24 12/18/24
21:16 07:18 06:40
Rfs-U-Juhxnnrctjr Pept 81720 [id number] 9410
Physical Exam
Constitutional: No acute distress
Cardiovascular: Pedal edema is absent, JVD pressure is normal, Systolic murmur absent, Diastolic murmur absent and Rhythm/rate is irregular
Respiratory: Respiratory effort normal, Lungs clear to auscul., Wheeze Absent, Crackles Absent and Rhonchi Absent
Neuro/Psych: AO x 3
Data Reviewed
-
Date of Service: December 19, 2024
Medical Decision Making: Review of Case with other Provider (Dr Reveles ok to discharge form cardiology perspective)
[2024-12-19 08:10] VITALS: BP 122/73
[2024-12-19 08:39] LABS: Blood Urea Nitrogen 35 mg/dl (9-20); Calcium 8.1 mg/dl (8.4-10.2); Carbon Dioxide 32 mmol/L (22-30); Chloride 103 mmol/L (98-107); Estimated Creatinine Clearance 31 ml/min; Glucose 203 mg/dl (70-99); Potassium 4.2 mmol/L (3.5-5.1); Sodium 142 mmol/L (135-145); eGFR 45.91
[2024-12-19] MEDS: ALDACTONE 25 MG PO (09:53)
[2024-12-19] MEDS: PROTONIX 40 MG PO (09:53)
[2024-12-19] MEDS: MAG-TAB SR 84 MG PO (09:53)
[2024-12-19] MEDS: LASIX 80 MG PO (09:53)
[2024-12-19] MEDS: CARDIZEM CD 180 MG PO (09:53)
[2024-12-19] MEDS: LOPRESSOR 200 MG PO (09:53)
[2024-12-19] MEDS: FLOMAX 0.4 MG PO (09:53)
[2024-12-19] MEDS: ELIQUIS 5 MG PO (09:53)
[2024-12-19] MEDS: LASIX IV (10:00)
[2024-12-19 10:29] VITALS: BP 122/70; PULSE 105; O2SAT 93
--- NOTE | 2024-12-19 12:08 | CM ---
Patient is medically stable for d/c today. Patient cont to need skilled placement. [facility] agreeable to accept to resume rehab.
Spoke w/ patient's son, Ke, regarding d/c today. Confirmed he and patient's spouse want patient to return to [facility]. Spouse will transport patient to SNF
CM called [phone] to initiate auth. Spoke w/ Suzan. Auth approved 5 days, beginning today, next review date is 12/23. Facility to call [phone] for updates.
Auth ref# [id number]
IMM verbally reviewed, copy on chart
[facility]
Report: [phone]

Plan: Return to [facility] to resume rehab. Spouse will transport
--- NOTE | 2024-12-19 12:10 | W.DS.TRANS ---
DC Summary - Harness Brusher
-
Discharge Instructions:
Sleep Apnea Risk Intermediate
Discharge Diagnosis/Procedures Acute CHF
Diet 2 Gram Sodium
Instructions: *PCP/Other Retail Shift Manager Heart Failure Instructions
Stand-Alone Forms:
Changes to Home Medications: Yes
Discharge Medications:
DC Medications w/original date entered in [email or web address]
apixaban 5 mg tablet (Eliquis) 5 mg PO BID Blood Clot Prevention/Tx 11/24/24
fluticasone propionate 50 mcg/actuation nasal spray,suspension 2 spray intranasal DAILY Allergies 11/24/24
ipratropium 0.5 mg-albuterol 3 mg (2.5 mg base)/3 mL nebulization soln 3 ml inhalation R Q4HPRN PRN sob 11/24/24
pantoprazole 40 mg tablet,delayed release 40 mg PO BID Gastrointestinal Issue 11/24/24
tamsulosin 0.4 mg capsule 0.4 mg PO DAILY Urinary Issue 11/24/24
atorvastatin 40 mg tablet 40 mg PO QPM #30 tabs 12/02/24
potassium chloride 20 mEq tablet,extended release(part/cryst) 40 meq (2 x 20 mEq) PO DAILY #30 tabs 12/02/24
acetaminophen 325 mg tablet 650 mg PO Q6HPRN PRN mild pain 12/07/24
bisacodyl 10 mg rectal suppository 10 mg [place] DAILYPRN PRN if no result from mom 12/07/24
magnesium hydroxide 400 mg/5 mL oral suspension (Milk of Magnesia) 30 ml PO [id number] PRN no bm x3 days 12/07/24
diltiazem HCl 180 mg capsule,extended release 24 hr 180 mg PO BID #60 caps 12/19/24
furosemide 80 mg tablet 80 mg PO DAILY #30 tabs 12/19/24
metoprolol tartrate 100 mg tablet 200 mg (2 x 100 mg) PO BID #120 tabs 12/19/24
spironolactone 25 mg tablet 25 mg PO DAILY #30 tabs 12/19/24
Home Medication Changes
Lasix and Metoprolol increased.
Aldactone initiated
Pending Results: No
--- NOTE | 2024-12-20 10:52 | W.HF.CON ---
Heart Failure
- LV Function
Left ventricular function study result: LV Ejection fraction >/= 50%
Ejection Fraction Percentage: 50
- ARNI
Patient already on ARNI: No
Heart Failure ARNI Not Indicated: LV Ejection Fraction >/= 40%
- ACEI/ARB
Patient already on ACEI/ARB: No
Heart Failure ACEI/ARB Not Indicated: LV Ejection Fraction > 40%
- Beta Jennifer
Patient already on Evidence Based Beta Jennifer: No
Heart Failure Evidence Based Beta Jennifer Not Indicated: LV Ejection Fraction > 40%
- Mineralocorticord Receptor Antagonist
Patient already on MRA: Yes
- SGLT-2 Inhibitor
Patient already on SGLT-2 Inhibitor: No
Heart Failure SGLT-2 Inhibitor Contraindication: Patient Refusal
- Afib Anticoagulation
Patient already on Anticoagulation for Afib: Yes
- NYHA CHF Classification
NYHA CHF Classification Level: Class III - Symptoms w/ min exertion, interferes w/ nml daily activity
- ACC/AHA Stage
ACC/AHA Stage: Stage C: Symptomatic Heart Failure
== END 2024-12-19 14:09 | DRG 291 ==
LOC: 4 EAST ACU 23:51
PROVIDERS: Family Medicine; Internal Medicine; Internal Medicine Cardiovascular Disease; Nurse Practitioner Family; Radiology Diagnostic Radiology; Student in an Organized Health Care Education/Training Program; ADMITTING PHYSICIAN Internal Medicine; ATTENDING PHYSICIAN Internal Medicine; CONSULT PHYSICIAN Specialist; CONSULT PHYSICIAN Student in an Organized Health Care Education/Training Program; EMERGENCY PHYSICIAN Emergency Medicine; OTHER PHYSICIAN Internal Medicine Infectious Disease
PROC: 5A0935A Assistance with Respiratory Ventilation, Less than 24 Consecutive Hours, High Flow/Velocity Cannula (ICD-10-PCS; 2024-12-08)
PROC: 0W993ZZ Drainage of Right Pleural Cavity, Percutaneous Approach (ICD-10-PCS; 2024-12-16)
DX: I13.0 Hypertensive heart and chronic kidney disease with heart failure and stage 1 through stage 4 chronic kidney disease, or unspecified chronic kidney disease (principal); I50.33 Acute on chronic diastolic (congestive) heart failure; J96.01 Acute respiratory failure with hypoxia; I48.21 Permanent atrial fibrillation; I31.39 Other pericardial effusion (noninflammatory); D61.818 Other pancytopenia; N30.41 Irradiation cystitis with hematuria; D68.32 Hemorrhagic disorder due to extrinsic circulating anticoagulants; Y84.2 Radiological procedure and radiotherapy as the cause of abnormal reaction of the patient, or of later complication, without mention of misadventure at the time of the procedure; E78.00 Pure hypercholesterolemia, unspecified; I45.10 Unspecified right bundle-branch block; D63.8 Anemia in other chronic diseases classified elsewhere; R31.0 Gross hematuria; T45.515A Adverse effect of anticoagulants, initial encounter; Y92.9 Unspecified place or not applicable; C61 Malignant neoplasm of prostate; C67.9 Malignant neoplasm of bladder, unspecified; I25.10 Atherosclerotic heart disease of native coronary artery without angina pectoris; L89.151 Pressure ulcer of sacral region, stage 1; I08.1 Rheumatic disorders of both mitral and tricuspid valves; I70.0 Atherosclerosis of aorta; N40.0 Benign prostatic hyperplasia without lower urinary tract symptoms; E78.2 Mixed hyperlipidemia; K21.9 Gastro-esophageal reflux disease without esophagitis; N18.31 Chronic kidney disease, stage 3a; D69.6 Thrombocytopenia, unspecified; Z66 Do not resuscitate; Z86.73 Personal history of transient ischemic attack (TIA), and cerebral infarction without residual deficits; Z79.51 Long term (current) use of inhaled steroids; Z86.16 Personal history of COVID-19; Z87.01 Personal history of pneumonia (recurrent); Z79.01 Long term (current) use of anticoagulants; Z92.3 Personal history of irradiation; Z92.21 Personal history of antineoplastic chemotherapy; Z11.52 Encounter for screening for COVID-19
CPT/HCPCS: 88305; 93308; 32555; 71045; 71046; 76770; 80048; 80053; 80202; 81003; 81015; 82805; 83615; 83735; 83880; 84100; 84145; 84155; 84157; 84443; 84484; 85018; 85025; 85027; 87015; 87040; 87070; 87077; 87086; 87186; 87205; 87502; 87811; 88112; 89051; 92610; 93005; 93321; 93325; 94640; 96365; 96375; 97110; 97116; 97163; 97167; 97530; 97535; 99291

== ENCOUNTER 2025-02-04 21:41 | Inpatient (IN) | payer OTHER, SELFPAY ==
[2025-02-04] VITALS (19 sets, daily range): BP systolic 71–132; BP diastolic 45–82; BMI 27.9; BMI 27.8
[2025-02-04 18:35] LABS: % Basophils 0.5 % (0-2); % Eosinophils 0.5 % (0-6); % Immature Granulocytes 4.1 % (0-0.5); % Lymphocytes 21.3 % (20.5-51.1); % Monocytes 13.9 % (1.7-9.3); % Neutrophils 59.7 % (42.2-75.2); Absolute Immature Granulocytes 0.4 10^3/uL (0-0.05); Absolute Lymphocytes 1.8 10^3/uL (1.2-3.4); Absolute Monocytes 1.2 10^3/uL (0.1-0.6); Absolute Neutrophils 5.1 10^3/uL (1.4-6.5); Hemoglobin 9.1 g/dL (13.0-18.0); Mean Corp Hgb Conc. 30.3 g/dL (33.0-37.0); Mean Corpuscular Hgb 24.1 pg (27.0-31.0); Mean Corpuscular Volume 79.6 fL (80.0-94.0); Mean Platelet Volume 10.9 fL (7.4-10.4); Nucleated Red Blood Cells % 0.6 % (-); Platelet Count 329 10^3/uL (130-400); Red Blood Cell Count 3.77 10^6/uL (4.70-6.10); Red Cell Dist. Width 17.6 % (11.5-14.5); White Blood Cell Count 8.6 10^3/uL (4.8-10.8)
[2025-02-04] MEDS: DOPamine 400 MG 250 IV (18:44)
[2025-02-04 18:46] LABS: APTT 41.3 Sec (23.4-35.0); INR 3.07; PT 31.6 Sec (11.4-14.6)
[2025-02-04 18:55] LABS: ALT (SGPT) 138 U/L (0-50); AST (SGOT) 267 U/L (17-59); Albumin 3.6 g/dl (3.5-5.0); Alkaline Phosphatase 363 U/L (38-126); Blood Urea Nitrogen 92 mg/dl (9-20); Calcium 6.9 mg/dl (8.4-10.2); Carbon Dioxide 7 mmol/L (22-30); Chloride 108 mmol/L (98-107); Estimated Creatinine Clearance 12 ml/min; Glucose 201 mg/dl (70-99); Magnesium 1.1 mg/dl (1.6-2.3); Potassium 5.9 mmol/L (3.5-5.1); Sodium 135 mmol/L (135-145); Total Bilirubin 1.1 mg/dl (0.2-1.3); Total Protein 6.3 g/dl (6.3-8.2); eGFR 11.66
[2025-02-04 19:02] LABS: NT-proBNP 20600 pg/ml; Troponin I < 0.012 ng/ml
[2025-02-04] MEDS: CALCIUM GLUCONATE 1000 MG IV (19:10)
[2025-02-04] MEDS: ADRENALIN 250 IV (19:19)
[2025-02-04] MEDS: MAGNESIUM SULFATE 50 IV ×2 (19:46→23:59)
[2025-02-04] MEDS: CALCIUM GLUCONATE 2000 MG IV (20:02)
[2025-02-04] MEDS: SODIUM BICARBONATE 50 MEQ IV (20:05)
--- NOTE | 2025-02-04 20:10 | ED.GENMED ---
History of Present Illness
General
Chief Complaint: Heart Rate Problem
Time Seen by Provider: 02/04/25 18:27
History of Present Illness
History of Present Illness:
Patient is a 84-year-old male with history of atrial fibrillation, CHF, diabetes, bladder cancer presenting to the emergency department with bradycardia and hypotension. Per medics they received a call as patient had a change in his respiratory
status. On their arrival he was bradycardic in the 50s and hypotensive with systolic in the 30s. They did give him 500 cc fluid with no response. They then gave him atropine without any change. Ultimately gave him 100 mics of epinephrine which
did improve his blood pressure to 107/50. Per other twelve-lead it looks like he was in a slow junctional rhythm. He did not need any pacing. Patient is Zambian-speaking so difficult to obtain any additional history.
Past History
Past History
ED Past Medical History: Arrthythmia (Chronic atrial fibrillation), CAD, Cancer (Prostate cancer, bladder cancer), CHF, CVA (History of a TIA), GERD, HTN, Hypercholesterolemia, Renal failure ( chronic renal insufficiency) and Other (Influenza
October 2024); Negative Asthma or COPD
ED Past Surgical History: Urological
Social History
Tobacco: Non-smoker
Alcohol: None
Drug: None
Living: assisted (Currently residing in a assisted for inpatient physical therapy)
Employment: Retired
Family History
Family History: Other (Noncontributory)
Phy Exam
Physical Exam
Physical Exam:
GENERAL: Appears ill up
HEENT: normocephalic, extraocular movements intact, moist oral mucosa
NECK: normal inspection
RESPIRATORY: Tachypneic, crackles in all lung lincoln
CARDIOVASCULAR: Bradycardic rate
ABDOMEN/: soft, non-distended, non-tender to palpation, no rebound or guarding
EXTREMITIES: non-tender, bilateral edema
NEUROLOGIC: awake and alert, moves all extremities
SKIN: warm
Course
Orders/Labs/Results
Orders:
Orders
02/04/25 18:24
Electrocardiogram (*1) Urgent
Reason for Study: Shortness of Breath
EKG- Treatment ONCE
02/04/25 18:27
Complete Blood Count/With Diff Urgent
Comprehensive Metabolic Panel Urgent
Magnesium Urgent
NT-proBNP Urgent
PTT Urgent
Prothrombin Time Urgent
TSH Reflex To Free T4 Urgent
Comment: ADD ON
Troponin I Urgent
02/04/25 18:29
EPINEPHrine 4 mg/250 mL NSS [Adrenalin] 4 mg in 250 ml IV NOW
Initial dose in mcg/min, then titrate:: 2
Titrate to keep:: MAP > 65 mmHg
Titrate by mcg/min:: 0.5 - 1 mcg/minute
Frequency of titrations (minutes):: 5
Maximum dose in mcg/min:: 10
Begin to taper infusion when:: Remained at goal for 4hrs
Taper by mcg/min:: 0.5 - 1 mcg/minute
Frequency of taper (minutes) if patient maintains goal:: 30
Taper to off?: Yes
If infusion off & no longer maintaining goal:: Contact Provider
02/04/25 18:39
DOPamine 400 MG/D5W 250 ML [DOPamine 400 MG] 400 mg in 250 ml IV NOW
Initial dose in mcg/kg/min, then titrate:: 5
Titrate to keep:: MAP > 65 mmHg
Titrate by mcg/kg/min:: 1-2 mcg/kg/min
Frequency of titrations (minutes):: 15
Maximum dose in ICU in mcg/kg/min:: 20
Maximum dose in IMU in mcg/kg/min:: 10
Begin to taper infusion when:: Remained at goal for 4hrs
Taper by mcg/kg/min:: 1-2 mcg/kg/min
Frequency of taper (minutes) if patient maintains goal:: 30
Taper to off?: Yes
If infusion off & no longer maintaining goal:: Contact Provider
02/04/25 18:42
CR Chest Portable - 1 View Urgent
Comment:
Reason For Exam: sob
Reason Study Needs to be Portable: Patient Unstable
02/04/25 19:01
Calcium Gluconate 1,000 mg IV NOW STA
02/04/25 19:24
Add On- LAB Urgent
Tests Added?: tsh reflex
02/04/25 19:40
Magnesium Sulfate 2 Gram/50 ml [Magnesium Sulfate] 2 gram in 50 ml IV NOW
02/04/25 19:43
Calcium Gluconate 2,000 mg IV NOW STA
02/04/25 19:48
Sodium Bicarbonate 50 meq IV NOW STA
02/04/25 19:49
[place] Placement- Treatment ONCE
Reason for insertion: I&O's Critical Care
02/04/25 19:50
Sodium Zirconium Cyclosilicate [Lokelma] 10 gram PO NOW STA
02/04/25 20:15
Sterile Water For Inj [Sterile Water For Injection 1000 ml] 1,000 ml Sodium Bicarbonate 150 meq IV 80 mls/hr
02/05/25 06:00
Sodium Zirconium Cyclosilicate [Lokelma] 10 gram PO TID@0600,1400,1800
Abnormal Lab Results
02/04/25
18:27
RBC 3.77 L 10^6/uL
(4.70-6.10)
Hgb 9.1 L g/dL
(13.0-18.0)
Hct 30.0 L %
(39.0-52.0)
MCV 79.6 L fL
(80.0-94.0)
MCH 24.1 L pg
(27.0-31.0)
MCHC 30.3 L g/dL
(33.0-37.0)
RDW 17.6 H %
(11.5-14.5)
MPV 10.9 H fL
(7.4-10.4)
Abs Immat Gran (auto) 0.4 H 10^3/uL
(0-0.05)
Absolute Monos (auto) 1.2 H 10^3/uL
(0.1-0.6)
Immature Gran % 4.1 H %
(0-0.5)
Monocytes % 13.9 H %
(1.7-9.3)
PT 31.6 H Sec
(11.4-14.6)
APTT 41.3 H Sec
(23.4-35.0)
Potassium 5.9 H mmol/L
(3.5-5.1)
Chloride 108 H mmol/L
(98-107)
Carbon Dioxide 7 L* mmol/L
(22-30)
BUN 92 H mg/dl
(9-20)
Creatinine 4.7 H* mg/dL
(0.7-1.3)
Glucose 201 H mg/dl
(70-99)
Calcium 6.9 L* mg/dl
(8.4-10.2)
Magnesium 1.1 L mg/dl
(1.6-2.3)
AST 267 H U/L
(17-59)
ALT 138 H U/L
(0-50)
Alkaline Phosphatase 363 H U/L
(38-126)
02/04/25 18:27
02/04/25 18:27
Vital Signs
Initial and Last Documented VS:
Initial Vital Signs
BP
92/66
02/04/25 18:24
Last Documented Vital Signs
Temp Pulse Resp BP Pulse Ox
96.4 F L 88 17 83/69 96
02/04/25 20:20 02/04/25 19:30 02/04/25 19:30 02/04/25 19:30 02/04/25 19:30
MDM/Problems Addressed
Differential Diagnosis Includes:
Patient is a 84-year-old man presenting to the emergency department with concerns for bradycardia and hypotension. On arrival patient was immediately placed on the monitor. He was placed on a nonrebreather. Initially his heart rate on the monitor
did look like slow A-fib though occasionally it looks as if he was going into a heart block. His initial blood pressure was in the 80s though he did receive 20 mics of epinephrine prior to him coming to the room. Concern for cardiac arrhythmia,
CHF exacerbation, renal failure, electrolyte derangement. initial EKG per my interpretation was slow atrial fibrillation. Given his hypotension and the slow A-fib we did prime epinephrine for additional support as it did work for medics. I did
immediately discuss with Dr. jerry from cardiology who is in agreement with the EKG. I did send a picture of the telemetry as I was concerned for heart block. After discussion with cardiology he is in AV block and junctional escape rhythm though
the underlying rhythm is atrial fibrillation. He did recommend dopamine at 5 with epi additionally as needed. His blood work did resolve with a CBC similar to prior. However he is in acute renal failure with hyper-K low bicarb and a creatinine of
4.7. He did have a low calcium and magnesium. His troponin was normal although his BNP was significantly elevated. Chest x-ray per my interpretation with pulmonary edema. Per the official read could be pneumonia though patient is afebrile and
does not have leukocytosis so we will hold off on antibiotics.
I did have a lengthy goals of care discussion with family. He is a DNR/DNI. They do not want dialysis or other aggressive measures but are okay with vasopressor support. Will use his port in the interim. I did discuss with nephrology regarding
patient's renal failure. He did recommend Lokelma x 3, bicarb amp and then a bicarb drip at 80 an hour. He also recommend additional calcium. He also recommended 80 Lasix after he has been stabilized on pressors for a few hours as well as [place]
catheter.
Unfortunately nursing with difficulty with patient's France catheter given anatomy. Also appears to have significant hematuria with patient's family member state that he does have history of. I did discuss with urology who will come to bedside.
Case discussed with hospitalist who accepted patient to their service.
*Critical Care Note
Total Time (30-74mins, 75-104mins- exclusive of procedures): 80
comment:
Critical care statement: A total of 80 minutes of critical care time was provided for this patient. This includes management of unstable vital signs, evaluation of the patient at bedside, reviewing the patient's pertinent medical records, ordering
and reviewing studies, arranging urgent treatment with development of a management plan, evaluating patient's response to treatment, frequent reassessment, and discussion with consultants. This time was separate from time utilized to perform the
aforementioned documented procedures.
ED Attending Note
-
Portions of this chart may have been created with voice recognition software.� Occasional wrong word or��sound alike� substitutions may have occurred due to the inherent limitations of voice recognition software.
Discharge Plan
Departure
Patient Disposition: Admit
Date of Disposition: 02/04/25
Time of Disposition: 20:25
Presentation/result/management discussed w/ accepting MD/DO: Hospitalist
Discharge Problem:
Acute renal failure, Hyperkalemia, Cardiogenic shock, Volume overload
Prescriptions:
No Action
ipratropium-albuterol 0.5 mg-3 mg(2.5 mg base)/3 mL solution for nebulization
3 ml INHALATION R Q4HPRN PRN (Reason: sob)
tamsulosin 0.4 mg capsule
0.4 mg PO DAILY
pantoprazole 40 mg tablet,delayed release (DR/EC)
40 mg PO BID
fluticasone propionate 50 mcg/actuation spray,suspension
2 spray INTRANASAL DAILY
Eliquis 5 mg tablet
5 mg PO BID
potassium chloride 20 mEq Tablet,Er Particles/Crystals
40 meq PO DAILY Qty: 30 0RF
atorvastatin 40 mg Tablet
40 mg PO QPM Qty: 30 0RF
acetaminophen 325 mg Tablet
650 mg PO Q6HPRN PRN (Reason: mild pain)
magnesium hydroxide [Milk of Magnesia] 400 mg/5 mL Suspension
30 ml PO [id number] PRN (Reason: no bm x3 days)
bisacodyl 10 mg Suppository
10 mg ID DAILYPRN PRN (Reason: if no result from mom)
diltiazem HCl 180 mg Capsule,Extended Release 24hr
180 mg PO BID Qty: 60 0RF
spironolactone 25 mg Tablet
25 mg PO DAILY Qty: 30 0RF
metoprolol tartrate 100 mg Tablet
200 mg PO BID Qty: 120 0RF
furosemide 80 mg Tablet
80 mg PO DAILY Qty: 30 0RF
Referrals:
Chip Wolf MD [Family Provider] -
Interventions
Interventions:
*Risk Screen - Suicide Last Done: 02/04/25 18:32
*General Assessment Last Done: 02/04/25 18:32
*Neglect/Abuse Screening Last Done: 02/04/25 18:32
*ED- Fall Risk Assessment Last Done: 02/04/25 18:32
*ED COVID-19 Vaccine History Last Done: 02/04/25 18:32
ED- Cardiac Assessment Last Done: 02/04/25 19:35
ED- Pulmonary Assessment Last Done: 02/04/25 19:35
Discharge Date and Time
Print Language: BARBADIAN
[2025-02-04] MEDS: SODIUM BICARBONATE 1150 MEQ IV (20:23)
[2025-02-04 20:29] LABS: TSH Reflex To Free T4 7.57 uIU/ml (0.47-4.68)
[2025-02-04] MEDS: LOKELMA 10 GRAM PO (20:34)
[2025-02-04 20:58] LABS: Free T4 1.76 ng/dl (0.78-2.19)
--- NOTE | 2025-02-04 21:29 | HPS.HSE ---
Family Physician
-
Family Physician: Chip Wolf
Chief Complaint
-
SOB
History of Present Illness
Patient is an 84y M with PMH significant for A-Fib, HFpEF, prostate cancer and bladder cancer who presents to ED complaining of SOB. History obtained from at the bedside and discussion with ED staff. states that he has been feeling
more fatigued and SOB over the past few days. Mild increase in LE edema - but has been much worse in the past. He does not weigh himself at home. reports recent gross hematuria - which he has quite frequently. She does state that he has
been making urine however. Today the patient became acutely more SOB and 911 was called. EMS reports that patient had bradycardia and hypotension on their initial assessment. He was given atropine with no response. He was given epi with
improvement and was brought to the ED for further evaluation.
In the ED, patient was noted to be in A-Fib with bradycardia. Hypotensive with systolic pressures 70-100.
reports no recent cough, fevers / chills, N/V/D, etc.
Patient was reportedly seen by his PCP two days ago. He had had blood work done which showed worsening renal function. As a result his metformin was discontinued.
also notes that diltiazem was restarted at that visit as his heart rate was in the 110s.
No other recent medication changes - though is not able to tell me all of his current meds / doses.
Medical History
Past Medical History
Past Medical History: Reports Other
Additional Past Medical History:
Atrial Fibrillation
HFpEF
ASCVD
GERD
CKD III
Prostate cancer s/p Radiation / Seeds
Bladder cancer followed at [facility]
DM-II
Past Surgical History: Reports Other
Additional Past Surgical History:
TURBT
Social History
Tobacco: Non-smoker
Alcohol: None
Personal: Single
Living: Penitentiary (Recently from rehab was living at home)
Employment: Retired
Family History
Family History: Not pertinent
Allergies / Home Medications
Allergies reflects when Allergies were last updated in [email or web address].
Home Medications with original date entered in [email or web address]
Allergy/Medication List:
unable to provide current med list.
If medication reconciliation has not been performed, why?: Medication List N/A
Review of Systems
-
History Source: Patient and Family
A 12 point ROS was completed and negative except as noted: Yes
Constitutional: Reports Fatigue; Denies Fever or Chills
Respiratory: Reports Trouble Breathing; Denies Cough
Cardiac: Denies Chest Pain or Palpitations
Abdomen/GI: Denies Abdominal Pain, Nausea, Vomiting or Diarrhea
: Reports Bleeding; Denies Difficulty Voiding
Musculoskeletal: Reports Edema
Neurological: Denies Dizzy or Headache
Physical Exam
Vital Signs
Vital Signs
Temp Pulse Resp BP Pulse Ox
96.4 F L 102 21 132/59 95
02/04/25 20:20 02/04/25 21:00 02/04/25 21:00 02/04/25 21:00 02/04/25 21:00
Physical Exam
General: Other (84y M in no acute distress.)
HEENT: Moist mucous membranes and PERRLA
Respiratory: Other (Few bibasilar rales- otherwise clear.)
Cardiac: S1/S2, Irregular Rhythm and Bradycardia; No Murmur
GI: Soft, Non Tender, Non Distended and Normal Bowel Sounds
Genito-urinary: Other (France now in place draining bloody urine.)
Musculoskeletal: No Clubbing, No Cyanosis and Other (Trace - 1+ pitting edema.)
Neuro: AO x 3
Laboratory Results
-
02/04/25 18:27
02/04/25 18:27
Laboratory Results
PT 31.6 Sec (11.4-14.6) H 02/04/25 18:
INR 3.07 02/04/25 18:
APTT 41.3 Sec (23.4-35.0) H 02/04/25 18:
Total Bilirubin 1.1 mg/dl (0.2-1.3) 02/04/25 18:
AST 267 U/L (17-59) H 02/04/25 18:
ALT 138 U/L (0-50) H 02/04/25 18:
Alkaline Phosphatase 363 U/L (38-126) H 02/04/25:
Troponin I < 0.012 ng/ml 02/04/25:
Impression/Plan
-
A/P: Patient is an 84y M with PMH significant for A-Fib, CHF, CKD and bladder cancer who presents to ED via EMS for evaluation of SOB.
Cardiogenic Shock
Acute on Chronic HFpEF
- Admit to ICU for further evaluation and treatment.
- Patient presented to the ED with bradycardia and hypotension - improved after epi in the field.
- Currently tachycardic and with normal BP.
- Place dopamine on standby. May resume if bradycardia or hypotension recur.
- Suspect primarily due to recent med changes - added Cardizem 2 days ago.
- Hold Cardizem. Change metoprolol (200mg BID) to 25mg q6 with holding parameters.
- Cardiology evaluation for additional recommendations.
- Echo done November 2024 with normal LVEF and mild - moderate MR / TR.
- Serial troponin to rule out acute ischemia.
- IV Lasix now and BID as BP tolerates.
- Follow for adequate diuresis, daily weights, etc.
ROMA on CKD III
Anion Gap Metabolic Acidosis
Hyperkalemia
- SCr = 4.7 compared to baseline of 1.5.
- Had labs 2 days ago which reportedly showed worsening renal function (verbal report from ).
- Likely pre-renal due to decreased perfusion / shock as noted above.
- IVFs with bicarb for now per Nephrology recs.
- Hold spironolactone, supplemental potassium, etc.
- Follow labs and adjust IVFs as needed.
- Fracne placed in the ED - follow for adequate output.
- Follow for improvement in renal function with increased perfusion.
Permanent Atrial Fibrillation
- Bradycardic on initial arrival - ? due to recently adjusted meds.
- Decrease chronotropic meds as noted above.
- Hold Eliquis acutely given bleeding issues.
- Very high risk for bleeding complications given Urologic history.
- Would consider permanent cessation of OAC given bleeding risks.
Urethral Stricture
Bladder Cancer
History of Prostate Cancer s/p XRT
Gross Hematuria
- France placed by Urology in the ED.
- Maintain [place]. Hand irrigate q2h and PRN.
- Hold Eliquis as noted above.
- Continue tamsulosin.
Abnormal LFTs
Abnormal INR
- Likely secondary to passive hepatic congestion / CHF.
- Follow for improvement with diuresis.
Anemia of Chronic Disease
- Stable. Hgb is at / near known baseline.
- Follow for changes.
DM-II
- states that he was taken off of metformin two days ago and started on new DM med - she does not know which.
- Hold all PO agents for now.
- Follow glucose and cover with SSI as needed.
- Update A1C.
DVT Prophylaxis: SCDs
Code Status: DNR
--- NOTE | 2025-02-04 21:39 | CON.MD ---
Consultation - Medical
-
see dictated note
pt admitted with SOB/CHF/cardiogenic shock
hx of prostate seeds for prostate cancer and xrt to bladder for bladder cancer- followed at [facility]
has had hematuria for > 3 months
on eliquis for afib
during recent admit seen by dr montana- hematuria but no retention- observed- as pt voiding no intervention taken
reports that pt has continued to have bleeding/ believes he was seen at [facility] in december and had cysto and told no cancer- just xrt damage
hematuria here- nursing staff unable to place june
pt very agitated
had distal stx preventing cath placement
wire placed- able to dilate gently- but only able to get a 16f coude tip cath in
urine very bloody- no retention- some clots- hand irrigated
reviewed with med team and pt's
he is in guarded condition from a cardiac standpoint
hematuria is chronic- unlikely to ever resolve
if become acute tonight- options would be to reverse eliquis (my opinion is that this should never be restarted) and go to OR for high risk dilation/cysto/fulguration and placement of 3 [address] cath OR comfort measures
will leave june with regular hand irrigation for now and observe
[2025-02-04 23:55] LABS: Glucose - Point of Care 172 mg/dl (70-99)
[2025-02-04] MEDS: LOPRESSOR 25 MG PO (23:59)
[2025-02-04] MEDS: LASIX 80 MG IV (23:59)
[2025-02-05] VITALS (11 sets, daily range): BP systolic 82–123; BP diastolic 56–97; BMI 28.1
[2025-02-05 00:28] LABS: Blood Urea Nitrogen 97 mg/dl (9-20); Calcium 7.8 mg/dl (8.4-10.2); Carbon Dioxide 14 mmol/L (22-30); Chloride 106 mmol/L (98-107); Estimated Creatinine Clearance 12 ml/min; Glucose 153 mg/dl (70-99); Potassium 4.9 mmol/L (3.5-5.1); Sodium 134 mmol/L (135-145); eGFR 12.28
[2025-02-05 00:37] LABS: Troponin I 0.018 ng/ml
[2025-02-05 01:32] LABS: Glucose - Point of Care 146 mg/dl (70-99)
[2025-02-05] MEDS: NOVOLOG FLEXPEN 2 UNITS SC (01:45)
--- NOTE | 2025-02-05 02:13 | PTCARENOTE ---
Late note due to patient care. Pt Aox3, Primarily Kazakh speaking but able to understand basic Cymro. Afib on monitor 100-120. +2/3 pitting edema to B/L lower extremities, moderate edema to his trunk and thighs. Initially on 4L NC, as the night
progressed he required 8L Midflow, no distress with drop in pulse ox. [place] irrigated with 200cc. Urine output is bright red with clots. Penis is edematous. at bedside, all questions answered.
[2025-02-05 05:37] LABS: Hematocrit 25.3 % (39.0-52.0); Hemoglobin 8.3 g/dL (13.0-18.0); Mean Corp Hgb Conc. 32.8 g/dL (33.0-37.0); Mean Corpuscular Hgb 24.2 pg (27.0-31.0); Mean Corpuscular Volume 73.8 fL (80.0-94.0); Mean Platelet Volume 10.2 fL (7.4-10.4); Platelet Count 283 10^3/uL (130-400); Red Blood Cell Count 3.43 10^6/uL (4.70-6.10); White Blood Cell Count 6.8 10^3/uL (4.8-10.8)
[2025-02-05 05:54] LABS: Magnesium 1.7 mg/dl (1.6-2.3); Phosphorus 5.8 mg/dl (2.5-4.5)
[2025-02-05 05:56] LABS: Blood Urea Nitrogen 95 mg/dl (9-20); Calcium 7.7 mg/dl (8.4-10.2); Carbon Dioxide 15 mmol/L (22-30); Chloride 108 mmol/L (98-107); Estimated Creatinine Clearance 12 ml/min; Glucose 88 mg/dl (70-99); Potassium 4.5 mmol/L (3.5-5.1); Sodium 136 mmol/L (135-145); eGFR 12.28
[2025-02-05] MEDS: LOPRESSOR 25 MG PO (06:10)
[2025-02-05 06:18] LABS: Troponin I 0.025 ng/ml
[2025-02-05] MEDS: VALIUM INJECTION 2.5 MG IV (07:04)
[2025-02-05] MEDS: DILAUDID 0.5 MG IV (07:29)
[2025-02-05] MEDS: FLOMAX 0.4 MG PO (07:31)
--- NOTE | 2025-02-05 07:45 | W.PN.HOSP.TC ---
Today's Communication/Plan
-
COmfort care
Assessment / Plan
Assessment / Plan
84yo M with PMHX of 84yo M with PMHC of Afib, HTN, HLD, BPH, GERD, CAD, Hx of CVA, prostate CA s/p recent RT and chemo 2/2 bladder wall muscular invasion and recurrent hematuria on ELiquis since brought with SOB, found hypotension and bradycarida on
admission, initially started on dopanine and norepinephrine with concern for CHF exacerbation and cardiogenic shock, later found pamela hematuria with complicated [place] placemet, urologist bedside was able to place only 16Fr [place] that later clogged,
since patient was not tolerating larger size due to pain. Urologist brought possibility of hematuria 2/2 recent RT and chemo with possibility of bladder perf and offered assessment in OR.
A/P:
#Acute blood loss anemia 2/2 hematuria 2/2 radiation or chemotherapy induced cystitis cannot exclude bladder perf exacerbated by Elquis
Urology consult: FAMILY DECLINED or OPTION
Serial CBC and transfuse as needed
Eliquis stopped
#Acute ROMA 2/2 urinary retention vs cardiorenal syndrome 2/2 acute on chronic HFpEF exacerbation
#BPH
#CAD
#Afib with RVR
#Concern for cardiogenic shock on admission
#Hyperkalemia
#Metabolic acidosis
Nephrology [place] CARDIO
as PER INITIAL DISCUSSION - FAMILY DECLINED HD
#Hx of CVA
#HLD
hold meds
#GOC
after detailed conversation with both sons - family elected comfort care approach onl;y. Their goal is to provide pain relieve and no interventions. Family agreeable that active meds will be stopped with exception of symptomatic mgmt of pain,
anxiety using morphine and ativan, that no additional diagnostics tests to be done. This decision made after detailed discussion with ED provider, Urologist, admitting team in view of complex medical condtion, significant patient discomfort with
management and high chance of mortality even with aggressive treatment
COmfort care measures initialed, pending hospice consult - agreed with both sons, who also in agreement with their mother - -patient
DVT ppx not needed
DNR/DNI
I have spent at least 59min reviewing chart, test reuslts, communication with consultants, family and direct patient care
Anticipated Discharge: 24 - 48 hours
Subjective/Interval History
-
Date of Service: February 05, 2025
Objective Data
-
Labs:
Laboratory Results
02/05/25 02/05/25 02/05/25
00:03 05:25 10:58
WBC 6.8
Hgb 8.3 L
Hct 25.3 L
Plt Count 283
Sodium 134 L 136 Pending
Potassium 4.9 4.5 Pending
Chloride 106 108 H Pending
Carbon Dioxide 14 L* 15 L Pending
BUN 97 H 95 H Pending
Creatinine 4.5 H* 4.5 H* Pending
Glucose 153 H 88 Pending
Calcium 7.8 L 7.7 L Pending
Total Bilirubin Pending
AST Pending
ALT Pending
Alkaline Phosphatase Pending
02/05/25
16:58
WBC
Hgb
Hct
Plt Count
Sodium Pending
Potassium Pending
Chloride Pending
Carbon Dioxide Pending
BUN Pending
Creatinine Pending
Glucose Pending
Calcium Pending
Total Bilirubin
AST
ALT
Alkaline Phosphatase
Vital Signs:
Vital Signs
Temp Pulse Resp BP Pulse Ox
97.5 F 108 24 98/77 94
02/05/25 03:40 02/05/25 06:10 02/05/25 06:00 02/05/25 06:10 02/05/25 05:45
I&O
02/04/25 02/05/25 02/06/25
06:59 06:59 06:59
Intake Total 1140 / 1140
Output Total 750 / 750
Balance 390 / 390
Review of Systems
-
History Source: Patient
Genitourinary: Reports Bleeding and Other (pain)
Physical Exam
-
General: Appears in Distress and Pain
HEENT: Moist Mucous Membranes
Respiratory: Clear to Auscultation
Cardiac: Irregular Rhythm and Tachycardic
GI: Soft, Tender and Distended
Musculoskeletal: No Clubbing, No Cyanosis and No Edema
Skin: Warm
Neuro: Awake, Alert, Oriented and AO x 3
Psych: Calm and Apparent Dementia
--- NOTE | 2025-02-05 07:59 | PTCARENOTE ---
pt received this am, yelling in pain, Dr. Daigle at the bedside- valium given by night rn per order. Dr. Daigle stated june clotted off, hematuria noted, do not flush, md to remove. scrotal edema noted. pt afib with bbb on monitor, 6L midflow.
Ismalov at bedside as well discussion with pt and family- pt comfort care. ongoing education and emotional support provided. all safety precautions in place, call fernandez within reach. see mds notes for further details.
[2025-02-05] MEDS: MORPHINE SULFATE 2 MG IV ×6 (08:11→22:03)
[2025-02-05] MEDS: ATIVAN 1 MG IV (08:58)
--- NOTE | 2025-02-05 09:23 | PTCARENOTE ---
slade removed by Dr. Daigle, pt oob to chair, resting much more comfortably, see mar.
--- NOTE | 2025-02-05 09:30 | PTCARENOTE ---
slade removed by Dr. Daigle, pt oob to chair with chair alarm, resting much more comfortably, see mar. family remains at bedside.
--- NOTE | 2025-02-05 10:01 | W.PN.UPDATE ---
Update Note
Progress Note Update
pt seen at bedside with family around 6:45 this morning
no acute cv-pulm events overnight- but still tachy/mild hypotension and requiring oxygen
june with minimal thick bloody output
cr still elevated at 4.5
attempted cath irrigation- obstructed with sig pain
reviewed with nephrology/med team and then family
at this juncture- would need to proceed to OR for cysto/dilation/clot evac and attempt at fulguration- explained again high risk nature of procedure- both cardiac/resp and urologically including bladder perf
also reviewed exterminator helper prognosis
at this juncture- they do NOT want any surgical intervention and given his degree of pain and cardiac dz and renal failure- elect for comfort care/hospice
june removed
hospitalist to guide ongoing plan
will follow
--- NOTE | 2025-02-05 11:38 | CM ---
CM following re: discharge planning.
Reviewed pt's chart,met with pt and pt's son Ke at bedside.
Pt is an 84 year old male, admitted with primary dx of Cardiogenic Shock. Acute on Chronic HFpEF
Per son pt was born and raised in [facility], emigrated with family [place] 30 years ago and resides in [place] area. Pt lives with spouse in [place], 3 steps to enter, has 3 supportive sons. Pt ambulates with a walker and a cane at baseline,
was at [facility].
Hospice consult noted.Pt's son requested hospice inpatient level. Emotional support offered and provided to the [pt and her son.
A referral to hospice made.
PCP: Christopher Crenshaw
Pharmacy: [facility]
D/C plan: comfort care. disability liaison officer following.
CM will follow with discharge plan updates as hospitalization progresses
--- NOTE | 2025-02-05 12:08 | HOSPNOTE ---
Hospice referral received. Spoke to attending, patient is on comfort measures, if he survives through today then we will sign patient onto inpatient hospice tomorrow morning. Spoke to son and explained the above and they are in agreement. They will
be at the hospital and available to meet us tomorrow morning between 9-930am. They are agreeable to patient moving to 2 north today on comfort if a bed becomes available. Attending updated and agreeable with above plan.
[2025-02-05 13:17] LABS: Glycohemoglobin (HgbA1c) 6.4 % (4.0-5.6)
--- NOTE | 2025-02-05 14:17 | PTCARENOTE ---
per Dr. Daigle do not straight cath patient. pt remains comfortable at this time, family at bedside.
--- NOTE | 2025-02-05 18:03 | PTCARENOTE ---
pt resting comfortably in bed, incontinence care and oral care provided. family remains at bedside. see mar.
[2025-02-06] MEDS: MORPHINE SULFATE 2 MG IV ×3 (01:46→11:24)
[2025-02-06] MEDS: ATIVAN 1 MG IV ×2 (07:42→11:29)
[2025-02-06 07:57] VITALS: BP 116/54
--- NOTE | 2025-02-06 11:13 | HOSPNOTE ---
Met with family and they are in agreement with hospice services. Patient will remain here inpatient hospice. Family at bedside and patient will be admitted for IV pain medications.
--- NOTE | 2025-02-06 11:25 | W.PN.HOSP.TC ---
Addendum entered and electronically signed by Edwin Marquis MD 02/06/25 11:30:
time of discharge 38 minutes
Original Note:
Today's Communication/Plan
-
monitor vitals
see plan
transition to inpatient hospice
morphine,ativan
Assessment / Plan
Assessment / Plan
84yo M with PMHX of 84yo M with PMHC of Afib, HTN, HLD, BPH, GERD, CAD, Hx of CVA, prostate CA s/p recent RT and chemo 2/2 bladder wall muscular invasion and recurrent hematuria on ELiquis since brought with SOB, found hypotension and bradycarida on
admission, initially started on dopanine and norepinephrine with concern for CHF exacerbation and cardiogenic shock, later found pamela hematuria with complicated [place] placemet, urologist bedside was able to place only 16Fr [place] that later clogged,
since patient was not tolerating larger size due to pain. Urologist brought possibility of hematuria 2/2 recent RT and chemo with possibility of bladder perf and offered assessment in OR.
A/P:
#Acute blood loss anemia 2/2 hematuria 2/2 radiation or chemotherapy induced cystitis cannot exclude bladder perf exacerbated by Elquis
Urology consult: Per urology will need to proceed to the OR for cystoscopy/dilation/clot evacuation. However family decided on comfort care/hospice given long-term poor prognosis. \\
Family met with hospice 02/06, agreeable for inpatient hospice. Discussed with hospice, will continue with morphine IV pushes with transition to morphine drip
Eliquis stopped
#Acute ROMA 2/2 urinary retention vs cardiorenal syndrome 2/2 acute on chronic HFpEF exacerbation
#BPH
#CAD
#Afib with RVR
#Concern for cardiogenic shock on admission
#Hyperkalemia
#Metabolic acidosis
Nephrology [place] CARDIO
as PER INITIAL DISCUSSION - FAMILY DECLINED HD
#Hx of CVA
#HLD
hold meds
#GOC
after detailed conversation with both sons - family elected comfort care approach onl;y. Their goal is to provide pain relieve and no interventions. Family agreeable that active meds will be stopped with exception of symptomatic mgmt of pain,
anxiety using morphine and ativan, that no additional diagnostics tests to be done. This decision made after detailed discussion with ED provider, Urologist, admitting team in view of complex medical condtion, significant patient discomfort with
management and high chance of mortality even with aggressive treatment
Patient is currently on comfort care, transition to inpatient hospice 02/06 after discussion with hospice.
DVT ppx not needed
DNR/DNI
General: Appears in Distress, lethargic
Cardiac: Irregular Rhythm and Tachycardic
GI: Soft, Tender and Distended
Musculoskeletal: No Edema
Neuro: Awake
Psych: Calm and Apparent Dementia
Anticipated Discharge: Today
Subjective/Interval History
-
Date of Service: February 06, 2025
lethargic
Objective Data
-
Vital Signs:
Vital Signs
Temp Pulse Resp BP Pulse Ox
97.9 F 101 16 116/54 97
02/06/25 07:57 02/06/25 07:57 02/06/25 07:57 02/06/25 07:57 02/06/25 07:57
I&O
02/05/25 02/06/25 02/07/25
06:59 06:59 06:59
Intake Total 1140 / 1140
Output Total 750 / 750
Balance 390 / 390
--- NOTE | 2025-02-06 11:30 | W.DCSUMMARY ---
Discharge Summary
Discharge Data
Date of Admission: 02/04/25
Date of Discharge: 02/06/25
-
Pending Results: No
Hospital Course
Discharge diagnoses:
Acute blood loss anemia 2/2 hematuria 2/2 radiation or chemotherapy induced cystitis cannot exclude bladder perf exacerbated by Elquis
cardiogenic shock
Acute urinary retention
Acute kidney injury
Hospital course:
83-year-old male with past medical history of A-fib, hypertension, hyperlipidemia, BPH, GERD, CAD, history of CVA, prostate cancer status post recent radiation and chemotherapy secondary to bladder wall muscular invasion came to the hospital with
shortness of breath along with hypotension and bradycardia. Patient was initially admitted for cardiogenic shock. Patient has significant acute kidney injury on admission. He was also having significant hematuria. Patient was seen by urology and
they recommended OR for cystoscopy/dilation/clot evacuation and attempted fulguration. Given patient cardiac and respiratory status, family decided to pursue comfort measures with later transition to inpatient hospice as they did not wanted any
surgical intervention. Patient was then discharged to inpatient hospice on 02/06/2025.
Discharge Plan
-
Patient Disposition: Hospice - Inpatient DH
Discharge Orders:
Discharge Patient (As Directed); Ordered 02/06/25
Ordered By: Edwin Marquis
Discharge Date and Time
Discharge Date/Time: 02/06/25 12:13
Print Language: GUINEAN
== END 2025-02-06 12:13 | disposition hospice, inpatient (51) | DRG 291 ==
LOC: 2 NORTH 21:41
PROVIDERS: ADMITTING PHYSICIAN Hospitalist; ATTENDING PHYSICIAN Internal Medicine; CONSULT PHYSICIAN Specialist; EMERGENCY PHYSICIAN Student in an Organized Health Care Education/Training Program; FAMILY PHYSICIAN Internal Medicine
DX: I13.0 Hypertensive heart and chronic kidney disease with heart failure and stage 1 through stage 4 chronic kidney disease, or unspecified chronic kidney disease (principal); I50.33 Acute on chronic diastolic (congestive) heart failure; R57.0 Cardiogenic shock; N17.9 Acute kidney failure, unspecified; E87.20 Acidosis, unspecified; D62 Acute posthemorrhagic anemia; D68.32 Hemorrhagic disorder due to extrinsic circulating anticoagulants; I48.21 Permanent atrial fibrillation; N30.41 Irradiation cystitis with hematuria; E87.5 Hyperkalemia; C67.9 Malignant neoplasm of bladder, unspecified; R60.0 Localized edema; I25.10 Atherosclerotic heart disease of native coronary artery without angina pectoris; K21.9 Gastro-esophageal reflux disease without esophagitis; R31.0 Gross hematuria; R79.89 Other specified abnormal findings of blood chemistry; E78.00 Pure hypercholesterolemia, unspecified; C61 Malignant neoplasm of prostate; N40.1 Benign prostatic hyperplasia with lower urinary tract symptoms; R33.8 Other retention of urine; D63.8 Anemia in other chronic diseases classified elsewhere; N35.919 Unspecified urethral stricture, male, unspecified site; N18.30 Chronic kidney disease, stage 3 unspecified; R09.02 Hypoxemia; K76.1 Chronic passive congestion of liver; N48.89 Other specified disorders of penis; E11.22 Type 2 diabetes mellitus with diabetic chronic kidney disease; T50.995A Adverse effect of other drugs, medicaments and biological substances, initial encounter; Y84.2 Radiological procedure and radiotherapy as the cause of abnormal reaction of the patient, or of later complication, without mention of misadventure at the time of the procedure; Y92.9 Unspecified place or not applicable; Z66 Do not resuscitate; Z86.73 Personal history of transient ischemic attack (TIA), and cerebral infarction without residual deficits; Z79.51 Long term (current) use of inhaled steroids; Z92.3 Personal history of irradiation; Z51.5 Encounter for palliative care; Z92.21 Personal history of antineoplastic chemotherapy; Z79.01 Long term (current) use of anticoagulants; Z86.718 Personal history of other venous thrombosis and embolism
CPT/HCPCS: 51702; 71045; 80048; 80053; 82962; 83036; 83735; 83880; 84100; 84439; 84443; 84484; 85025; 85027; 85610; 85730; 93005; 96365; 96366; 96367; 96375; 96376; 99291; 99292

== ENCOUNTER 2025-02-06 12:13 | Inpatient (IN) | payer OTHER, SELFPAY ==
--- NOTE | 2025-02-06 12:31 | ADM.HSP ---
Admission - Hospice
History of Present Illness
Inpatient hospice
Reason for Hospice Admission
83-year-old male with past medical history of A-fib, hypertension, hyperlipidemia, BPH, GERD, CAD, history of CVA, prostate cancer status post recent radiation and chemotherapy secondary to bladder wall muscular invasion came to the hospital with
shortness of breath along with hypotension and bradycardia. Patient was initially admitted for cardiogenic shock. Patient has significant acute kidney injury on admission. He was also having significant hematuria. Patient was seen by urology and
they recommended OR for cystoscopy/dilation/clot evacuation and attempted fulguration. Given patient cardiac and respiratory status, family decided to pursue comfort measures with later transition to inpatient hospice and did not wanted any
surgical intervention.
Review of Systems
Unable to obtain full review of systems at this time due to: Acuity
Physical Exam
General: Appears in Distress
Respiratory: Decreased Breath Sounds
Cardiology: Irregular Rhythm and Tachycardia
Breast: Deferred by me
Genito-Urinary: Bloody Urine
Neuro: Awake
Assessment/Medication Plan
Acute blood loss anemia 2/2 hematuria 2/2 radiation or chemotherapy induced cystitis cannot exclude bladder perf exacerbated by Elquis
Urology consult: Per urology will need to proceed to the OR for cystoscopy/dilation/clot evacuation. However family decided on comfort care/hospice given long-term poor prognosis.
Family met with hospice 02/06, agreeable for inpatient hospice. Discussed with hospice, will continue with morphine IV pushes with transition to morphine drip
Eliquis stopped
Continue with inpatient hospice
ativan, morphine
Other past medical history
#Acute ROMA 2/2 urinary retention vs cardiorenal syndrome 2/2 acute on chronic HFpEF exacerbation
#BPH
#CAD
#Afib with RVR
#Concern for cardiogenic shock on admission
#Hyperkalemia
#Metabolic acidosis
Nephrology [place] CARDIO
as PER INITIAL DISCUSSION - FAMILY DECLINED HD
#Hx of CVA
#HLD
#GOC
after detailed conversation with both sons - family elected comfort care approach onl;y. Their goal is to provide pain relieve and no interventions. Family agreeable that active meds will be stopped with exception of symptomatic mgmt of pain,
anxiety using morphine and ativan, that no additional diagnostics tests to be done. This decision made after detailed discussion with ED provider, Urologist, admitting team in view of complex medical condtion, significant patient discomfort with
management and high chance of mortality even with aggressive treatment
Patient is currently on comfort care, transition to inpatient hospice 02/06 after discussion with hospice.
DVT ppx not needed
DNR/DNI
[2025-02-06 12:44] VITALS: BP 116/54
--- NOTE | 2025-02-06 12:46 | PTCARENOTE ---
Patient admitted onto inpatient hospice, chart flipped. Patient medicated with PRN IV morphine and ativan for nonverbal pain, agitation with movement/turning. Patient inc of gross hematuria, bed bath provided, per previous chart no straight
cath/june d/t increased pain/clotting. Family at bedside updated on plan of care.
[2025-02-06] MEDS: MORPHINE SULFATE 2 MG IV ×4 (15:33→20:03)
[2025-02-06] MEDS: ATIVAN 1 MG IV ×2 (16:41→18:16)
[2025-02-06] MEDS: TYLENOL/FEVERALL 650 MG RECTAL ×2 (16:48→23:16)
[2025-02-06] MEDS: ROBINUL 0.2 MG IV ×2 (16:52→21:56)
--- NOTE | 2025-02-06 18:02 | HOSPNOTE ---
Patient has been admitted to inpatient hospice level of care. Patient is inpatient appropriate for the management of pain, dyspnea, anxiety/agitation that could not be managed in the outpatient setting. Family at bedside and agreeable. Hospice will
visit daily
[2025-02-06 23:26] VITALS: BP 106/72
[2025-02-07] MEDS: MORPHINE SULFATE 2 MG IV ×2 (02:23→07:56)
[2025-02-07] MEDS: ATIVAN 1 MG IV ×2 (02:23→07:57)
[2025-02-07] MEDS: NSS (PRESERVATIVE FREE) 0.5 ML IV (07:57)
[2025-02-07 08:25] VITALS: BP 75/55
--- NOTE | 2025-02-07 08:42 | HOSPNOTE ---
Technician Helper Instrument visited 84 year old patient to conduct Initial JAVASCRIPT WEB DEVELOPER Assessment. Patient admitted onto Hospice Services and [facility] Level of Care with Primary Diagnosis of Acute Renal Failure. Nurse reported patient was agitated earlier this morning
and medications administered. JAVASCRIPT WEB DEVELOPER greeted patient while entering the room. Patient asleep and appeared to be resting comfortably, no signs of pain and/or distress observed. Patient's son Bin exited from the bathroom and JAVASCRIPT WEB DEVELOPER greeted him and asked
how he was doing. Bin reported he was doing okay. Bin reported patient hadn't been awake in 24 hours and the family wants him comfortably. Bin reported the family is doing okay and they support each other. Bin reported patient's
oldest son resides in [place] and will be arriving today. Bin reported patient hasn't seen his son in several years. Serromyy reported patient's spouse Shanti is on her way to the hospital to relieve him while he goes to work. Bin declined
[facility] and Pastoral Services. Patient is not sabianist and arrangements are in progress. Emotional Support Provided.
Patient meets [facility] criteria for SN Assessments, management of pain, dyspnea, anxiety, and agitation that could not be managed at home and/or in an Outpatient setting. Discharge planning continues.
JAVASCRIPT WEB DEVELOPER will conduct visits once a week while on [facility] Level of Care to provide supportive services and monitor for additional services.
--- NOTE | 2025-02-07 10:20 | PTCARENOTE ---
Addendum entered by Allison Hartman RN 02/07/25 11:09:
pt passed this AM. aware and came to room to pronounce.
Original Note:
prn pain medication given this morning at 0800. see MAR for proper documentation. pt was restless moaning, tachycardic, and tachypneic, throwing his arms in the room. See MAR and worklist for proper documentation.
--- NOTE | 2025-02-07 11:33 | W.PN.DEATH ---
Pronouncement of
-
Called to see patient to pronounce.
No spontaneous heart tones or respirations noted.
Patient not responsive to verbal stimuli.
Patient is pronounced .
Time of : 09:44
Date of : 02/07/25
Cause of : Prostate cancer, Cardiogenic Shock, Acute Urinary retention
Family Notified: Yes
--- NOTE | 2025-02-07 11:44 | W.DCSUMMARY ---
Discharge Summary
Discharge Data
Date of Admission: 02/06/25
Date of Discharge: 02/07/25
-
Pending Results: No
Hospital Course
Discharge Diagnosis:
Acute blood loss anemia secondary to hematuria from acute urinary retention
Prostate cancer
Bladder cancer
Acute kidney injury
Cardiogenic shock
83-year-old male with past medical history of A-fib, hypertension, hyperlipidemia, BPH, GERD, CAD, history of CVA, prostate cancer status post recent radiation and chemotherapy secondary to bladder wall muscular invasion was admitted under inpatient
hospice. Patient symptoms were controlled with morphine and Ativan. Patient later on 02/07/2025 and 9:44 AM.
Discharge Plan
-
Patient Disposition:
Date/Time
Date/Time: 02/07/25 09:44
Discharge Date and Time
Print Language: KINYARWANDA
--- NOTE | 2025-02-07 14:23 | CM ---
Patient has passed.
Plan; Patent passed.
== END 2025-02-07 14:35 | disposition expired | DRG 951 ==
LOC: 2 NORTH 12:13
PROVIDERS: ADMITTING PHYSICIAN Internal Medicine
DX: Z51.5 Encounter for palliative care (principal); N17.9 Acute kidney failure, unspecified; N30.41 Irradiation cystitis with hematuria; E87.20 Acidosis, unspecified; D62 Acute posthemorrhagic anemia; I48.91 Unspecified atrial fibrillation; I10 Essential (primary) hypertension; I95.9 Hypotension, unspecified; K21.9 Gastro-esophageal reflux disease without esophagitis; E78.5 Hyperlipidemia, unspecified; N40.1 Benign prostatic hyperplasia with lower urinary tract symptoms; R33.8 Other retention of urine; C61 Malignant neoplasm of prostate; C67.9 Malignant neoplasm of bladder, unspecified; I25.10 Atherosclerotic heart disease of native coronary artery without angina pectoris; E87.5 Hyperkalemia; F41.9 Anxiety disorder, unspecified; R57.0 Cardiogenic shock; R31.9 Hematuria, unspecified; Y84.2 Radiological procedure and radiotherapy as the cause of abnormal reaction of the patient, or of later complication, without mention of misadventure at the time of the procedure; Z66 Do not resuscitate; Z85.46 Personal history of malignant neoplasm of prostate; Z86.73 Personal history of transient ischemic attack (TIA), and cerebral infarction without residual deficits; Z92.3 Personal history of irradiation; Z92.21 Personal history of antineoplastic chemotherapy